=== PATIENT | male | born 1935 | race Caucasian/White ===

== ENCOUNTER 2021-09-08 09:55 | Inpatient (IN) | payer MEDICARE, SELFPAY ==
[2021-09-08] VITALS (8 sets, daily range): BP systolic 108–127; BP diastolic 68–77; PULSE 100–117; RESP 18–26; TEMP 36.6–37.6; O2SAT 90–95; BMI 33.0
--- NOTE | 2021-09-08 10:20 | XR_ITS ---
WS: [id number] XR chest 1V portable [id number] REASON FOR EXAM: SOB, hypoxia FINDINGS: Tortuous thoracic aorta. Heart size cannot be evaluated due to abnormality of the left chest. There is opacification of the lower left chest which most likely is a combination of lung consolidati on and pleural fluid. The left hemidiaphragm may also be elevated. There are no prior examinations fo r comparison. The right chest is clear. XR/XR chest 1V portable [id number] IMPRESSION: Opacification of the lower left hemithorax as above.
--- NOTE | 2021-09-08 10:21 | ECG_ITS ---
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 Measurements Intervals [place] Rate: 109 P: 63 NE: 128 QRS: 9 QRSD: 96 T: 57 QT: 325 QTc: 439 Interpretive Statements SINUS TACHYCARDIA POSSIBLE INFERIOR MYOCARDIAL INFARCTION , PROBABLY OLD [30 ms Q WAVE IN II/aVF] No previous ECG available for comparison Electronically Signed On 09-08-2021 18:28:15 SURVEILLANCE MANAGER by Ervin Coughlin M.D. [id number] f
--- NOTE | 2021-09-08 10:22 | W.ED.SOB ---
HPI - SOB/Dyspnea General: Chief Complaint: ER Hold Stated Complaint: GENERALIZED WEAKNESS Time Seen by Provider: 09/08/21 10:05 Source: patient and EMS Mode of arrival: EMS Limitations: no limitations History of Present Illness: HPI Narrative: Patient is an 85-year-old male who presents to ED today via EMS with a complaint of shortness of breath. Patient states he has had progressive dyspnea over the past 3 to 4 days. EMS states upon arrival patient was satting at 85% on room air. He normally does not wear oxygen but is currently on 6L O2. Patient states he has not been running fevers but did have some chills 2 days ago. He is immunized for COVID (not including his booster). No sick exposures. He has had a productive cough. He is not complaining of abdominal pain, vomiting, diarrhea. He has not noticed any swelling to his lower extremities. PMH includes hyperlipidemia and HTN. MD elicited complaint: shortness of breath and cough Onset (ago): day(s) Timing: constant Severity: severe Exacerbating factors: exertion Relieving factors: nothing Associated symptoms: Reports chest congestion and chest pain (he states with breathing); Deny abdominal pain, dizziness, extremity pain, fever(s), hemoptysis, lightheadedness, nausea, palpitations, syncope or vomiting Related Data: Home oxygen amount: none Review of Systems Const: Reports: chills, body aches and fatigue; Denies: fever(s) or malaise Eyes: Denies: change in vision, blurry vision, photophobia, floaters or seeing flashes ENMT: Denies: throat pain, odynophagia, nasal discharge, nasal congestion, post nasal drip or sinus pain Card: Reports: chest pain (he states with breathing) and dyspnea on exertion; Denies: palpitations, irregular heart rhythm, edema, swelling of feet/ankles, lightheadedness, syncope, pre-syncope, leg pain with exertion or acrocyanosis Resp: Reports: dyspnea, productive cough, pain on inspiration and chest congestion; Denies: wheezing, stridor or hemoptysis GI: Denies: abdominal pain, nausea, vomiting or diarrhea Musc: Denies: neck pain, back pain, extremity pain, extremity swelling or joint pain Skin/Breast: Denies: rash Neuro: Reports: other (generalized weakness); Denies: headache(s), numbness in extremities, weakness in extremities, sensory changes or dizziness [facility] ED PFSH: Medical History (Updated 09/08/21 @ 14:54 by Janak Quinonez MD) HTN (hypertension) Hyperlipidemia Surgical History (Updated 09/08/21 @ 14:53 by Janak Quinonez MD) No pertinent past surgical history Social History (Updated 09/08/21 @ 14:53 by Janak Quinonez MD) Smoking and tobacco status: never smoked Alcohol intake: never Substance/Drug Use: never Physical Exam Const: COMMON NORMALS: no limitations and alert GENERAL APPEARANCE: in distress (respiratory distress with hypoxia) NUTRITIONAL APPEARANCE: overweight ORIENTATION/CONSCIOUSNESS: Yes awake, Yes oriented to person, Yes oriented to place and Yes oriented to time HENMT: COMMON NORMALS: normocephalic and atraumatic HEAD & SCALP: normal to inspection, normocephalic and atraumatic Neck/C-Spine: COMMON NORMALS: full ROM, no lymphadenopathy and no meningeal signs GENERAL: No anterior neck swelling and No submandibular swelling Chest: COMMONS NORMALS: normal inspection of the chest and normal palpation of entire chest wall Resp: EFFORT & INSPECTION: Yes respiratory distress and Yes labored AUSCULTATION: diminished lung sounds on the left Cardio: COMMON NORMALS: regular rhythm RATE: tachycardic RHYTHM: regular rhythm GI: COMMON NORMALS: Soft to palpation, non-tender and no masses INSPECTION: Yes normal to inspection and Yes central obesity PALPATION: Yes Soft to palpation Extremity: COMMON NORMALS: normal to inspection, capillary refill normal, no clubbing, cyanosis or edema, no calf tenderness and no pedal edema Neuro: JALIL COMA SCALE: document GCS findings [place] coma scale eye opening: Spontaneous Jalil coma scale verbal response: Orientated [place] coma scale motor response: Obey commands Jalil coma scale total score: 15 SENSORIUM/ORIENTATION: Yes alert, Yes oriented to person, Yes oriented to place and Yes oriented to time MENINGEAL SIGNS: Yes no meningeal signs Skin: COMMON NORMALS: no rashes or lesions noted GENERAL SKIN EXAM: no rashes or lesions noted Course ED course: Dr. Greene has also evaluated patient and agrees with admission Consultations: Consultation #1: Dr. Quinonez-will await CTA findings for definite plans regarding L lung, recommends adding influenza; will come evaluate in ED Vital Signs: Vital signs: Vital Signs Temperature 99.6 F 09/08/21 10:13 Pulse Rate 107 H 09/08/21 13:33 Respiratory Rate 18 09/08/21 15:47 Blood Pressure 116/68 09/08/21 13:33 Pulse Oximetry 93 09/08/21 13:33 MDM - SOB/Dyspnea Medical Decision Making Patient is a nice 85-year-old male with a history of hyperlipidemia and hypertension here for progressive dyspnea over the past few days. He is COVID positive. CXR shows large opacification to the left lower lobe that could represent consolidation and/or effusion. CTA ordered for further clarification. Patient is currently mildly tachycardic. He is satting normally on 4L O2. Dr. Greene has also evaluated this patient and agrees with plan for admit. I have spoken to the hospitalist who will come evaluate patient in the ED and admit. Lab Data : 09/08/21 12:27 09/08/21 12:27 Labs/Radiology: Radiology Impressions Chest X-Ray 09/08/21 10:20 IMPRESSION: Opacification of the lower left hemithorax as above. Chest CTA 09/08/21 14:00 IMPRESSION: 1. No evidence of pulmonary embolus. 2. Large left pleural effusion with scattered areas of increased attenuation may represent blood products. Associated compression of the left lower lobe with obstruction of the left lower lobe bronchi. 3. 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 This can be followed up with conventional angiography if indicated. 4. Numerous lesions in the liver nonspecific on this study but most likely hepatic cysts. This can be followed up with ultrasound. 5. Distended gallbladder with dense increased attenuation material likely sludge. Notified MARTI Hill at 09/08/2021 3:34 PM. Laboratory Results WBC 5.7 10^3/uL (4.0-10.0) 09/08/21 12:27 RBC 4.20 10^6/uL (4.1-5.3) 09/08/21 12:27 Hgb 13.0 g/dL (11.7-16.6) 09/08/21 12:27 Hct 41.0 % (42.0-52.0) L 09/08/21 12:27 MCV 97.6 fl (80-94) H 09/08/21 12:27 MCH 31.0 pg (28.0-34.0) 09/08/21 12: MCHC 31.7 g/dL (30.0-36.0) 09/08/21 12:27 RDW 13.2 % (12.1-15.1) 09/08/21 12:27 Plt Count 178 10^3/cmm (130-400) 09/08/21 12: MPV 10.0 fL (7.4-10.4) 09/08/21 12:27 Neut % (Auto) 74.6 % 09/08/21 12:27 Lymph % (Auto) 11.3 % 09/08/21 12:27 [place] % (Auto) 13.3 % 09/08/21 12:27 Eos % (Auto) 0.2 % 09/08/21 12: Baso % (Auto) 0.2 % 09/08/21 12: Neut # (Auto) 4.22 10^3/uL (1.8-7.7) 09/08/21 12:27 Lymph # (Auto) 0.6 10^3/uL (0.8-4.8) L 09/08/21 12:27 [place] # (Auto) 0.8 10^3/uL (0.2-0.9) 09/08/21 12:27 Eos # (Auto) 0.0 10^3/uL (0.0-0.8) 09/08/21 12:27 Baso # (Auto) 0.0 10^3/uL (0.0-0.1) 09/08/21 12: Nucleated RBC % (auto) 0 % 09/08/21 12: Nucleated RBCs # 0.0 /100WBC 09/08/21 12: D-Dimer 1.62 ug/mIFEU (0-0.59) H 09/08/21 13:01 Specimen Type Arterial 09/08/21 10:46 Sample Site Brachial, left 09/08/21 10:46 ABG pH 7.39 (7.35-7.45) 09/08/21 10:46 ABG pCO2 40.9 mmHg (35-45) 09/08/21 10:46 ABG pO2 73.7 mmHg (80.0-100.0) L 09/08/21 10:46 ABG HCO3 24.5 mmol/L (22-26) 09/08/21 10:46 ABG O2 Saturation 95.3 09/08/21 10:46 ABG Base Excess -0.5 mmol/L (-2.0-2.0) 09/08/21 10:46 Yaya Test N/a 09/08/21 10:46 A-a O2 Gradient 24.6 mmHg (5-10) H 09/08/21 10:46 Hematocrit 40.7 % (42-52) L 09/08/21 10:46 Hgb O2 Saturation 93.3 % (95-100) L 09/08/21 10:46 Carboxyhemoglobin 1.2 %THgb (0.4-20.1) 09/08/21 10:46 Methemoglobin 0.9 % (0.4-1.5) 09/08/21 10:46 Total Hemoglobin 13.3 g/dL (14-18) L 09/08/21 10:46 Sodium 138.0 mmol/L (131-143) 09/08/21 10:46 Potassium 4.0 mmol/L (3.5-5.0) 09/08/21 10:46 Glucose 164.0 mg/dL (70-115) H 09/08/21 10:46 Ionized Calcium 1.2 mmol/L (1.1-1.4) 09/08/21 10:46 O2 Delivery Device Nc 09/08/21 10:46 O2 Liters/Min 6.0 % 09/08/21 10:46 FiO2 44.0 % 09/08/21 10:46 Chute Tender ID Amh 09/08/21 10:46 Sodium 136 mmol/L (136-145) 09/08/21 12:27 Potassium 4.0 mmol/L (3.5-5.1) 09/08/21 12:27 Chloride 98 mmol/L (98-107) 09/08/21 12:27 Carbon Dioxide 26 mmol/L (22-29) 09/08/21 12:27 Anion Gap 16.0 (5-19) 09/08/21 12:27 BUN 26 mg/dL (8-23) H 09/08/21 12:27 Creatinine 1.2 mg/dL (0.7-1.2) 09/08/21 12:27 GFR Calculation Not Reportable 09/08/21 12:27 Glucose 146 mg/dL (65-115) H 09/08/21 12:27 Calculated Osmolality 289 mOsm/kg (285-295) 09/08/21 12:27 Lactic Acid 1.7 mmol/L (0.5-2.2) 09/08/21 12:27 Calcium 8.3 mg/dL (8.5-10.5) L 09/08/21 12:27 Total Bilirubin 0.7 mg/dL (0.15-1.2) 09/08/21 12:27 AST 19 U/L (0-40) 09/08/21 12:27 ALT 13 U/L (0-41) 09/08/21 12:27 Alkaline Phosphatase 68 IU/L (40-130) 09/08/21 12:27 Troponin T Baseline 19 ng/L (0-15) H 09/08/21 12:27 Troponin T 120 Minute 18.20 ng/L (0-15) H 09/08/21 14:40 Delta Troponin T -0.80 ABS# (0-10) L 09/08/21 14:40 C-Reactive Protein 24.4 mg/L (0.0-4.9) H 09/08/21 12:27 NT-Pro-B Natriuret Pep 105 pg/mL (0-450) 09/08/21 12:27 Total Protein 5.7 g/dL (6.6-8.7) L 09/08/21 12:27 Albumin 3.3 g/dL (3.5-5.2) L 09/08/21 12:27 Globulin 2.4 g/dL (1.3-4.6) 09/08/21 12:27 Procalcitonin 0.12 ng/mL (0-0.5) 09/08/21 12:27 SARS-CoV-2 Ag (Rapid) Positive (Negative) H 09/08/21 10:55 Discharge Plan Discharge Patient Disposition: Admitted As Inpatient Clinical Impression: COVID-19 Condition: Stable Coding Level of Care Code ED Tomato Grader for Elsa Fwd Exam Comprehensive
[2021-09-08 10:57] LABS: ABG PCO2 40.9 mmHg (35-45); ABG PH Result 7.39 (7.35-7.45); Alveolar-Arterial Oxygen Gradi 24.6 mmHg (5-10); Arterial Blood Gas Hematocrit 40.7 % (42-52); Base Excess ABG -0.5 mmol/L (-2.0-2.0); Blood Gas Operator Identificat AMH; Blood Gas Sample Site Brachial, left; Blood Gas Sample Type Arterial; Carboxyhemoglobin 1.2 %THgb (0.4-20.1); HCO3 ABG 24.5 mmol/L (22-26); HGB O2 Sat 93.3 % (95-100); Ionized Calcium Level - ABG 1.2 mmol/L (1.1-1.4); Methemoglobin 0.9 % (0.4-1.5); Oxygen Device NC; Oxygen Saturation ABG 95.3; PO2 ABG 73.7 mmHg (80.0-100.0); Total Hemoglobin 13.3 g/dL (14-18)
--- NOTE | 2021-09-08 11:18 | PC.NURSE ---
This RN gave report to MYNOR Mann at this time who will assume care at this time.
[2021-09-08 11:23] LABS: SARS Covid-2 Antigen Positive (Negative)
--- NOTE | 2021-09-08 12:21 | ECG_ITS ---
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 Measurements Intervals [place] Rate: 107 P: 66 MS: 147 QRS: 18 QRSD: 91 T: 64 QT: 328 QTc: 439 Interpretive Statements SINUS TACHYCARDIA ABNORMAL RHYTHM ECG Compared to ECG 09/08/2021 12:02:13 Myocardial infarct finding no longer present Electronically Signed On 09-08-2021 18:33:25 TEAM OTR TRUCK DRIVER by Ervin Coughlin M.D. [email or web address] Techmerit health biloxiLeaftrinity health system west campusZinkia/store/OM/[id number]
[2021-09-08 12:33] LABS: Basophils % 0.2 %; Eosinophils % 0.2 %; Lymphocytes # 0.6 10^3/uL (0.8-4.8); Lymphocytes % 11.3 %; Mean Corpuscular HGB Conc 31.7 g/dL (30.0-36.0); Mean Corpuscular Volume 97.6 fl (80-94); Monocytes # 0.8 10^3/uL (0.2-0.9); Monocytes % 13.3 %; Neutrophils # 4.22 10^3/uL (1.8-7.7); Neutrophils % 74.6 %; Nucleated Red Blood Cells % 0 %; Platelet Count 178 10^3/cmm (130-400); Red Cell Distribution Width 13.2 % (12.1-15.1); White Blood Count 5.7 10^3/uL (4.0-10.0)
[2021-09-08 12:59] LABS: Lactic Sepsis W/Reflex 1.7 mmol/L (0.5-2.2)
[2021-09-08 13:03] LABS: Troponin(5th) Baseline 19 ng/L (0-15)
[2021-09-08 13:19] LABS: Alanine Aminotransferase 13 U/L (0-41); Albumin Level 3.3 g/dL (3.5-5.2); Alkaline Phosphatase 68 IU/L (40-130); Aspartate Amino Transferase 19 U/L (0-40); Blood Urea Nitrogen 26 mg/dL (8-23); C Reactive Protein 24.4 mg/L (0.0-4.9); Calcium 8.3 mg/dL (8.5-10.5); Carbon Dioxide 26 mmol/L (22-29); Chloride 98 mmol/L (98-107); Globulin 2.4 g/dL (1.3-4.6); Glucose 146 mg/dL (65-115); Osmolality Calculated 289 mOsm/kg (285-295); Sodium 136 mmol/L (136-145); Total Bilirubin 0.7 mg/dL (0.15-1.2); Total Protein 5.7 g/dL (6.6-8.7)
[2021-09-08 13:52] LABS: D Dimer 1.62 ug/mIFEU (0-0.59)
--- NOTE | 2021-09-08 14:00 | CT_ITS ---
WS: [id number] CTA OF THE CHEST WITH PULMONARY EMBOLISM PROTOCOL TECHNIQUE: High-resolution contrast enhanced CTA of the chest with coronal and sagittal reformatted i mages with pulmonary embolism protocol. MIP images are also reviewed. CLINICAL INFORMATION: COVID, hypoxia; elevated d-dimer; L consolidation/effusion COMPARISON: None. DLP: 620.[address] scans at [facility] use at least one of these dose optimization techniques: automated e xposure control; mA and/or kV adjustment per patient size (includes targeted exams where dose is matc hed to clinical indication); or iterative reconstruction. FINDINGS: Proximal main pulmonary arteries are normal. No filling defects to indicate pulmonary embolus. Some i mages degraded by breathing artifact.Large left pleural effusion. Some increased attenuation material in the pleural effusion likely due to blood products or proteinaceous debris. Obstruction left lower lobe bronchi with compression/collapse of the left lower lobe. Dilated tortuous veins in the left lower lobe with anomalous origin of the left pulmonary vein. Findi ngs most likely due to arteriovenous malformation. This can be followed up with conventional angiogra phy for better anatomic detail. Normal caliber thoracic aorta. Numerous low-attenuation lesions in the liver nonspecific but likely h epatic cysts. This can be followed up with ultrasound. Distended gallbladder with increased attenuati on material likely dense sludge. Adrenal glands are normal. Partially visualized renal cortical atrop hy. A few calcified thyroid nodules. No axillary lymphadenopathy. No mediastinal or hilar lymphadenopathy . CT/CT angio chest PE protcl [id number] IMPRESSION: 1. No evidence of pulmonary embolus. 2. Large left pleural effusion with scattered areas of increased attenuation m ay represent blood products. Associated compression of the left lower lobe with obstruction of the left lower lobe bronchi. 3. 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 Findings suspic ious for arteriovenous malformation. This can be followed up with conventional angiography if indicated. 4. Numerous lesions in the liver nonspecific on this study but most likely hep atic cysts. This can be followed up with ultrasound. 5. Distended gallbladder with dense increased attenuation material likely slud ge. Notified MARTI Hill at 09/08/2021 3:34 PM.
[2021-09-08 14:08] LABS: NT Pro B Type Natriuretic Pept 105 pg/mL (0-450); Procalcitonin 0.12 ng/mL (0-0.5)
--- NOTE | 2021-09-08 14:50 | P.HP_ITS ---
Providers/Chief Complaint Chief Complaint: GENERALIZED WEAKNESS History of Present Illness Harrison Garcia Case is a 85 year old male with a past medical history of hypertension, hyperlipidemia, who presents [facility] due to fevers, fatigue, malaise, shortness of breath. He also reports pleurisy, shortness of breath and chest pain with deep breaths. He tells me that he has been v accinated for Covid has received both vaccinations, he was supposed to get the third vaccine but they were out of stock. Has not received flu vaccine. No history of lung disease. No history of COPD, no history of smoking, no history of CAD. No history of CVA. No history of diabetes. He tells me that progressively become more short of breath, fatigue, malaise, no diarrhea, no abdominal pain, no loss of taste, loss of smell Review of Systems Const: Reports: fever(s), chills, body aches, fatigue and malaise Eyes: Denies: change in vision or blurry vision ENMT: Denies: nasal congestion Resp: Reports: dyspnea and productive cough; Denies: non-productive cough or wheezing GI: Denies: abdominal pain, nausea, vomiting, hematemesis, diarrhea, constipation, hematochezia or melena : Denies: flank pain, difficulty urinating, dysuria or urinary frequency Musc: Denies: neck pain or back pain Skin/Breast: Denies: rash Neuro: Denies: headache(s), dizziness or vertigo Psych: Denies: anxiety or depression Medications/Allergies Home Medications Medication Instructions Recorded Confirmed Last Taken Type cholecalciferol (vitamin D3) 50 50 mcg PO DAILY 09/08/21 09/08/21 Unknown History mcg (2,000 unit) capsule (Vitamin D3) lisinopril 20 mg tablet 10 mg PO DAILY 09/08/21 09/08/21 Unknown History nifedipine 60 mg tablet,extended 60 mg PO DAILY 09/08/21 09/08/21 Unknown History release 24 hr pravastatin 40 mg tablet 40 mg PO DAILY 09/08/21 09/08/21 Unknown History Allergies Allergy/AdvReac Type Severity Reaction Status Date / Time No Known Allergies Allergy Unverified 09/08/21 14:32 PFSH Acute PFSH: Medical History (Updated 09/08/21 @ 14:54 by Janak Quinonez MD) HTN (hypertension) Hyperlipidemia Surgical History (Updated 09/08/21 @ 14:53 by Janak Quinonez MD) No pertinent past surgical history Social History (Updated 09/08/21 @ 14:53 by Janak Quinonez MD) Smoking and tobacco status: never smoked Alcohol intake: never Substance/Drug Use: never Vitals/I&O/Wt Last Vital Signs Temp 99.6 F 09/08/21 10:13 Pulse 107 H 09/08/21 13:33 Resp 18 09/08/21 13:33 BP 116/68 09/08/21 13:33 Pulse Ox 93 09/08/21 13:33 Weight last 48 hrs Weight 110.677 kg Physical Exam Const: COMMON NORMALS: no acute distress and patient oriented x3 HENMT: COMMON NORMALS: normocephalic HEAD & SCALP: normocephalic Neck/C-Spine: COMMON NORMALS: no JVD Lymph: LYMPHATIC: no lymphadenopathy noted Chest: COMMONS NORMALS: normal inspection of the chest Resp: COMMON NORMALS: normal respiratory effort, No retractions, No use of accessory muscles and clear to auscultation bilaterally AUSCULTATION: clear to auscultation bilaterally Cardio: COMMON NORMALS: no JVD, regular rate, regular rhythm, S1 normal heart sound present and S2 normal heart sound present RATE: regular rate RHYTHM: regular rhythm HEART SOUNDS: S1 normal heart sound present and S2 normal heart sound present GI: COMMON NORMALS: Normal to inspection, nondistended, normoactive bowel sounds present, Soft to palpation, non-tender, No hepatosplenomegaly present, no masses and no bruits PALPATION: Yes Soft to palpation and Yes No hepatosplenomegaly present Extremity: COMMON NORMALS: capillary refill normal, no clubbing, cyanosis or edema, no calf tenderness and no pedal edema Neuro: COMMON NORMALS: patient oriented x3 Psych: COMMON NORMALS: mental status grossly normal Data : 09/08/21 12:27 09/08/21 12:27 Micro: Microbiology 09/08/21 13:30 Blood Culture - Preliminary Blood SPECIMEN COLLECTED 09/08/21 13:01 Blood Culture - Preliminary Blood SPECIMEN COLLECTED A&P Assessment and plan (1) Collapse of left lung: Status: Acute (2) COVID-19: Status: Acute (3) Pneumonia due to COVID-19 virus: Status: Acute Plan COVID-19 pneumonia -Requiring 4 L Plan: -Currently ER hold, admit to general medical floors -D-dimer 1.62, CT angiogram -Remdesivir day 1 of 5 -Decadron day 1 of 10 -Has left lung consolidation and/or collapse, Rocephin and azithromycin for second bacterial pneumonia prophylaxis -Vitamin C, zinc, vitamin D - incentive spirometer, flutter valve -Budesonide, ipratropium -For left lung collapse and/or consolidation will await CT angiogram, if negative for pulmonary emboli, will start chest vest therapy, Mucomyst, hypertonic saline, monitor respiratory status, repeat chest x-ray tomorrow morning, if persists will consider bronchoscopy -Lovenox for DVT prophylaxis -Patient is DNR/DNI, confirmed with this patient multiple times, does not want to have aggressive interventions Attestations Medical Necessity Statement*: Patient requires hospitalization for COVID-19 pneumonia, left lung collapse Coding Level of Care Code Acute Rail Bonder for [facility] Fwd History Comprehensive Exam Comprehensive Medical Decision Making High Complexity Diagnoses Collapse of left lung J98.11 COVID-19 U07.1 Pneumonia due to COVID-19 virus U07.1; J12.82 Time Spent (min) 55
[2021-09-08] MEDS: iodixanol 320 mg/mL 100mL Btl IV (15:06)
[2021-09-08] MEDS: ondansetron 2 mg/ML SDV 2 mL IVP (15:47)
[2021-09-08] MEDS: morphine 4 mg/mL SDV 1 mL 2 MG IVP (15:47)
--- NOTE | 2021-09-08 16:21 | ECG_ITS ---
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 Measurements Intervals [place] Rate: 104 P: 66 WI: 153 QRS: 18 QRSD: 94 T: 76 QT: 321 QTc: 424 Interpretive Statements SINUS TACHYCARDIA NONSPECIFIC T-WAVE ABNORMALITy Compared to ECG 09/08/2021 13:45:36 T-wave abnormality now present Electronically Signed On 09-08-2021 18:32:07 HEMODIALYSIS RN by Ervin Coughlin M.D. [email or web address]/[id number] f
[2021-09-08] MEDS: ipratropium-albuterol 3 mL Neb INHALATION (17:04)
[2021-09-08] MEDS: dexamethasone 10 mg/mL INJ 6 MG IVP (18:09)
[2021-09-08] MEDS: azithromycin 500 MG in sodium chloride 0.9% 250 ML 250 MG IV (18:10)
[2021-09-08] MEDS: cefTRIAXone 1,000 MG in sodium chloride 0.9% (plus) 50 ML 100 MG IV (18:11)
[2021-09-08 18:39] LABS: Troponin 5 6HR 18.74 ng/L (0-15)
[2021-09-08 18:53] LABS: Troponin 5 6HR Delta -0.26 ng/L (0-12)
[2021-09-08] MEDS: remdesivir 200 MG in sodium chloride 0.9% (100 ml) 60 ML 100 MG IV (22:16)
[2021-09-08] MEDS: ascorbic acid 500 mg Tablet PO (22:17)
[2021-09-08] MEDS: famotidine 20 mg/2 mL INJ IVP (22:18)
[2021-09-08] MEDS: sodium chloride 0.9% 1,000 ML 75 ML IV (22:22)
[2021-09-09] VITALS (15 sets, daily range): BP systolic 108–148; BP diastolic 70–86; PULSE 92–108; RESP 16–29; TEMP 36.6–37.7; O2SAT 90–95
[2021-09-09 03:43] LABS: ABG PCO2 53.8 mmHg (35-45); ABG PH Result 7.32 (7.35-7.45); Arterial Blood Gas Hematocrit 37.9 % (42-52); Base Excess ABG 0.8 mmol/L (-2.0-2.0); Blood Gas Allen Test Pos; Blood Gas Sample Site Radial, left; Blood Gas Sample Type Arterial; HCO3 ABG 27.7 mmol/L (22-26); Oxygen Device NC; PO2 ABG 70.8 mmHg (80.0-100.0)
--- NOTE | 2021-09-09 03:57 | PC.NURSE ---
Adjusted NS as the first dose not started until he arrived to floor.
--- NOTE | 2021-09-09 06:00 | ECG_ITS ---
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 Measurements Intervals [place] Rate: 92 P: 66 MT: 166 QRS: 23 QRSD: 96 T: 60 QT: 343 QTc: 425 Interpretive Statements SINUS RHYTHM NONSPECIFIC T-WAVE ABNORMALITY Compared to ECG 09/08/2021 16:57:31 Sinus tachycardia no longer present T-wave abnormality still present Electronically Signed On 09-09-2021 9:20:26 CCO by Elba Nicolas M.D. [email or web address] Globalpromise hospital of east los angelesDeskidea/store/[id number]
--- NOTE | 2021-09-09 07:00 | XR_ITS ---
WS: [id number] PORTABLE CHEST HISTORY: sob COMPARISON: 09/08/2021 Increasing consolidation and opacification throughout the LEFT thorax. There is a small amount of res idual aerated lung centrally. No significant shift of the mediastinal structures to the LEFT. Small amount of interstitial thickening centrally in the lower RIGHT lung. No pneumothorax. Cardiac size: Heart is obscured by the large effusion LEFT thorax. Mediastinum/Aorta: Obscured by the effusion in the LEFT thorax. No osseous abnormality seen. XR/XR chest 1V portable [id number] IMPRESSION: 1. Large LEFT pleural effusion, slightly increased in size since 09/08/2021. 2. Very small amount of edema or pneumonitis developing in the central RIGHT l brenda.
[2021-09-09] MEDS: ipratropium-albuterol 3 mL Neb INHALATION ×4 (08:24→20:27)
[2021-09-09] MEDS: budesonide 0.5 mg/2 mL Neb INHALATION ×2 (08:24→20:27)
[2021-09-09] MEDS: acetylcysteine 200 mg/mL SDV 4 mL 100 MG INHALATION ×4 (08:24→20:27)
[2021-09-09 08:43] LABS: Basophils % 0.2 %; Eosinophils # 0.1 10^3/uL (0.0-0.8); Eosinophils % 0.9 %; Hematocrit 37.3 % (42.0-52.0); Hemoglobin 11.9 g/dL (11.7-16.6); Lymphocytes # 1.1 10^3/uL (0.8-4.8); Lymphocytes % 19.5 %; Mean Corpuscular HGB Conc 31.9 g/dL (30.0-36.0); Mean Corpuscular Hemoglobin 31.2 pg (28.0-34.0); Mean Corpuscular Volume 97.6 fl (80-94); Mean Platelet Volume 9.9 fL (7.4-10.4); Monocytes # 0.8 10^3/uL (0.2-0.9); Monocytes % 14.3 %; Neutrophils # 3.49 10^3/uL (1.8-7.7); Neutrophils % 64.9 %; Nucleated Red Blood Cells % 0 %; Platelet Count 187 10^3/cmm (130-400); Red Blood Count 3.82 10^6/uL (4.1-5.3); Red Cell Distribution Width 13.4 % (12.1-15.1); White Blood Count 5.4 10^3/uL (4.0-10.0)
[2021-09-09 08:57] LABS: INR 1.06 (0.8-1.2)
[2021-09-09 09:04] LABS: Estmated Average Glucose 128; Hemoglobin A1C 6.1 % (4.0-6.0)
[2021-09-09 09:09] LABS: Lactate (Lactic Acid level) 1.2 mmol/L (0.5-2.2)
[2021-09-09 09:20] LABS: NT Pro B Type Natriuretic Pept 59 pg/mL (0-450); Procalcitonin 0.14 ng/mL (0-0.5); Thyroid Stimulating Hormone 1.49 uIU/mL (0.27-4.20)
[2021-09-09 09:31] LABS: Alanine Aminotransferase 11 U/L (0-41); Alkaline Phosphatase 63 IU/L (40-130); Aspartate Amino Transferase 18 U/L (0-40); Blood Urea Nitrogen 33 mg/dL (8-23); C Reactive Protein 55.9 mg/L (0.0-4.9); Calcium 7.9 mg/dL (8.5-10.5); Carbon Dioxide 25 mmol/L (22-29); Chloride 103 mmol/L (98-107); Creatine Phosphokinase 98 U/L (39-308); Globulin 2.4 g/dL (1.3-4.6); Glucose 127 mg/dL (65-115); Magnesium 2.3 mg/dL (1.7-2.3); Osmolality Calculated 297 mOsm/kg (285-295); Phosphorus 3.1 mg/dL (2.5-4.5); Sodium 139 mmol/L (136-145); Total Bilirubin 0.5 mg/dL (0.15-1.2); Total Protein 5.4 g/dL (6.6-8.7)
[2021-09-09] MEDS: cholecalciferol (vitamin D3) 1,000 unit Tablet 2000 UNIT PO (09:32)
[2021-09-09] MEDS: zinc gluconate 50 mg Tablet PO (09:32)
[2021-09-09] MEDS: NIFEdipine ER (24 hr) 30 mg Tablet 60 MG PO (09:32)
[2021-09-09] MEDS: ascorbic acid 500 mg Tablet PO ×2 (09:32→18:02)
[2021-09-09] MEDS: atorvastatin 40 mg Tablet 20 MG PO (09:33)
[2021-09-09] MEDS: famotidine 20 mg/2 mL INJ IVP ×2 (09:33→19:56)
--- NOTE | 2021-09-09 10:00 | US_ITS ---
WS: [id number] ULTRASOUND-GUIDED THORACENTESIS, LEFT HISTORY: left pleural effusion Procedure, risks, and complications were explained to the patient. With the patient in an upright pos ition, the skin over the LEFT posterior thorax was cleansed with ChloraPrep and anesthetized with 1% buffered lidocaine. A 5 Albanian Yueh needle is inserted into the pleural fluid. The pleural effusion i s very echogenic and appears to be clotted blood or infection. Attempted aspiration twice. No aspirat e was removed. There is a very small amount of dark clotted blood aspirated into the syringe. The inn er stylet became clogged with clot. / thoracentesis [id number] IMPRESSION: 1. Unsuccessful LEFT thoracentesis. Very echogenic clotted material consistent with a hemothorax. Unsuccessful aspiration. Diffuse drops of very dark red jackson tted blood aspirated initially. 2. Chest radiograph to follow to evaluate for pneumothorax. 3. A rapid response was necessary after the examination was completed patient briefly became unresponsive.
--- NOTE | 2021-09-09 10:07 | XR_ITS ---
WS: [id number] PORTABLE CHEST HISTORY: chest pain COMPARISON: 09/09/2021 Near complete obscuration of the LEFT hemithorax. Very tiny amount of aerated lung centrally has decr eased since earlier the same day. No pneumothorax is identified. No midline shift. RIGHT lung is clear. No pleural effusion or pneumothorax. Cardiac size: Obscured by the dense consolidation in the RIGHT thorax. Mediastinum/Aorta: No mediastinal widening. No osseous abnormality seen. XR/XR chest 1V portable [id number] IMPRESSION: Essentially complete opacification of the LEFT thorax. Patient has a known larg e pleural effusion/hemothorax. No significant complications status post the rec ent attempted thoracentesis. No pneumothorax evident.
[2021-09-09 10:21] LABS: ABG PCO2 47.1 mmHg (35-45); ABG PH Result 7.34 (7.35-7.45); Alveolar-Arterial Oxygen Gradi 4.4 mmHg (5-10); Arterial Blood Gas Hematocrit 36.7 % (42-52); Blood Gas Allen Test Pos; Blood Gas Operator Identificat CAK; Blood Gas Sample Site Radial, left; Blood Gas Sample Type Arterial; Carboxyhemoglobin 0.8 %THgb (0.4-20.1); HCO3 ABG 25.2 mmol/L (22-26); HGB O2 Sat 88.3 % (95-100); Ionized Calcium Level - ABG 1.2 mmol/L (1.1-1.4); Oxygen Device NC; PO2 ABG 58.7 mmHg (80.0-100.0)
[2021-09-09] MEDS: FUROsemide 10 mg/mL SDV 4mL 40 MG IVP (11:19)
--- NOTE | 2021-09-09 14:15 | P.PN_ITS ---
Subjective Subjective: Interval history: Patient was seen multiple times this morning Rapid response was called early this morning, patient was having a bedside thoracocentesis, he became lethargic, less responsive, saturating in the high 90s on 6 L, when I examined patient, he was alert oriented x3, following all commands, complaining of shortness of breath, he has complete opacification of the left lung, he has decreased aeration of the left lung, denies any coughing or gagging episodes, does report falling the day he came to the hospital, bone no significant trauma, I was told by Dr. Biggs that during his thoracocentesis she phan blood, but it clotted off, chest x-ray does not show any evidence of pneumothorax He was reexamined later in the morning, currently on 6 L, complaining of some intermittent shortness of breath, but overall feeling better, no lightheadedness, has a weak cough, no chest pain Vitals/I&O/Wt Last Vital Signs Temp 97.8 F 09/09/21 11:50 Pulse 104 H 09/09/21 12:10 Resp 20 H 09/09/21 12:05 BP 138/85 09/09/21 11:50 Pulse Ox 94 09/09/21 12:05 09/08/21 09/09/21 09/09/21 22:59 06:59 14:59 Intake Total 300 / 300 60 / 360 360 / 360 Balance 300 / 300 60 / 360 360 / 360 Weight last 48 hrs Weight 110.677 kg Physical Exam Const: COMMON NORMALS: no acute distress and patient oriented x3 Resp: COMMON NORMALS: normal respiratory effort, No retractions and No use of accessory muscles AUSCULTATION: diminished lung sounds on the left throughout Cardio: COMMON NORMALS: regular rate, regular rhythm, S1 normal heart sound present and S2 normal heart sound present RATE: regular rate RHYTHM: regular rhythm HEART SOUNDS: S1 normal heart sound present and S2 normal heart sound present GI: COMMON NORMALS: Normal to inspection, nondistended, normoactive bowel sounds present, Soft to palpation, non-tender and No hepatosplenomegaly present PALPATION: Yes Soft to palpation and Yes No hepatosplenomegaly present Extremity: NARRATIVE EXTREMITY EXAM: 1+ pitting edema Neuro: COMMON NORMALS: patient oriented x3 Psych: COMMON NORMALS: mental status grossly normal Data : 02/03/22 08:35 09/09/21 08:35 Micro: Microbiology 09/08/21 13:30 Blood Culture - Preliminary Blood NEGATIVE TO DATE 09/08/21 13:01 Blood Culture - Preliminary Blood NEGATIVE TO DATE A&P Assessment and plan (1) Collapse of left lung: Status: Acute (2) COVID-19: Status: Acute (3) Pneumonia due to COVID-19 virus: Status: Acute (4) Hemothorax on left: Status: Acute (5) Pleural effusion: Status: Acute Plan COVID-19 pneumonia -Requiring 6 L -pH 7.34, PCO2 50.7, PCO2 47.1, on 6 L -1.? No evidence of pulmonary embolus. 2.? Large left pleural effusion with scattered areas of increased attenuation may represent blood products. Associated compression of the left lower lobe with obstruction of the left lower lobe bronchi. 3.? 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 This can be followed up with conventional angiography if indicated. 4.? Numerous lesions in the liver nonspecific on this study but most likely hepatic cysts. This can be followed up with ultrasound. 5.? Distended gallbladder with dense increased attenuation material likely sludge. Ultrasound thoracocentesis 1.? Unsuccessful LEFT thoracentesis. Very echogenic clotted material consistent with a hemothorax. Unsuccessful aspiration. Diffuse drops of very dark red clotted blood aspirated initially. 2.? Chest radiograph to follow to evaluate for pneumothorax. 3.? A rapid response was necessary after the examination was completed patient briefly became unresponsive. Chest x-ray Essentially complete opacification of the LEFT thorax. Patient has a known large pleural effusion/hemothorax. No significant complications status post the recent attempted thoracentesis. No pneumothorax evident. Plan: -Currently under medical floors -D-dimer 1.62, -Remdesivir day 2 of 5 -Decadron day 2 of 10 -Has left lung consolidation and/or collapse, Rocephin and azithromycin for second bacterial pneumonia prophylaxis -Vitamin C, zinc, vitamin D - incentive spirometer, flutter valve -Budesonide, ipratropium -For left lung collapse chest vest therapy, hypertonic saline, Mucomyst, monitor respiratory status, repeat chest x-ray, if persists will consider bronchoscopy -Left pleural effusion, no significant trauma reported, blood contents reported, will do a trial of Lasix, consider discussing with cardiothoracic surgery -I try to reach out to family members, however currently no answer -Lovenox for DVT prophylaxis -Patient is DNR/DNI, confirmed with this patient multiple times, does not want to have aggressive interventions Attestations Medical Necessity Statement*: Patient requires hospitalization for COVID-19 pneumonia, left lung collapse, left hemothorax Critical Care Time: 25 Coding Level of Care Code Acute Emg Technician for [facility] Fwd Diagnoses Collapse of left lung J98.11 COVID-19 U07.1 Pneumonia due to COVID-19 virus U07.1; J12.82 Hemothorax on left J94.2 Pleural effusion J90
[2021-09-09] MEDS: azithromycin 500 MG in sodium chloride 0.9% 250 ML 250 MG IV (16:06)
[2021-09-09] MEDS: dexamethasone 10 mg/mL INJ 6 MG IVP (16:07)
[2021-09-09] MEDS: cefTRIAXone 1,000 MG in sodium chloride 0.9% (plus) 50 ML 100 MG IV (18:02)
[2021-09-09] MEDS: remdesivir 100 MG in sodium chloride 0.9% (100 ml) 80 ML IV (18:57)
[2021-09-09 21:39] LABS: Glucose Point of Care 231 mg/dL (70-110)
[2021-09-10] VITALS (13 sets, daily range): BP systolic 120–143; BP diastolic 71–85; PULSE 85–95; RESP 16–22; TEMP 36.6–37.7; O2SAT 89–93
--- NOTE | 2021-09-10 04:00 | XR_ITS ---
WS: [id number] PORTABLE CHEST HISTORY: sob COMPARISON: 09/09/2021 Complete opacification throughout the LEFT thorax. There is slight shift of the mediastinal structure s to the RIGHT of midline. Cardiac size: Obscured by the increased opacification throughout the LEFT thorax. Mediastinum/Aorta: Shift of the mediastinal structures to the RIGHT. No osseous abnormality seen. XR/XR chest 1V portable [id number] IMPRESSION: 1. Complete progressive opacification throughout the LEFT thorax. Opacificatio n is increased since 2021. No aerated lung. Attempted recent thoracentesis re vealed very heterogeneous pleural fluid consistent with blood and clot. Unable to aspirate due to clot and pleural thickening. 2. Slight midline shift to the RIGHT. This could be due to position and rotati on of the patient but increasing mass effect is a possibility. Possible increas ing LEFT hemothorax should be considered.
[2021-09-10 04:29] LABS: ABG PCO2 49.1 mmHg (35-45); ABG PH Result 7.33 (7.35-7.45); Arterial Blood Gas Hematocrit 37.8 % (42-52); Base Excess ABG -0.7 mmol/L (-2.0-2.0); Blood Gas Allen Test Pos; Blood Gas Sample Site Radial, left; Blood Gas Sample Type Arterial; HCO3 ABG 25.8 mmol/L (22-26); Oxygen Device NC; PO2 ABG 65.5 mmHg (80.0-100.0)
--- NOTE | 2021-09-10 06:00 | ECG_ITS ---
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 Measurements Intervals [place] Rate: 89 P: 52 [place]: 137 QRS: 22 QRSD: 88 T: 37 QT: 341 QTc: 416 Interpretive Statements SINUS RHYTHM NONSPECIFIC T-WAVE ABNORMALITY Compared to ECG 09/09/2021 06:22:04 No significant changes Electronically Signed On 09-10-2021 17:42:11 MANNEQUIN MOLDER by Ervin Coughlin M.D. [email or web address]
[2021-09-10 08:02] LABS: Hematocrit 35.4 % (42.0-52.0); Hemoglobin 11.2 g/dL (11.7-16.6); Lymphocytes # 0.5 10^3/uL (0.8-4.8); Lymphocytes % 9.9 %; Mean Corpuscular HGB Conc 31.6 g/dL (30.0-36.0); Mean Corpuscular Volume 98.1 fl (80-94); Monocytes # 0.7 10^3/uL (0.2-0.9); Neutrophils # 4.01 10^3/uL (1.8-7.7); Neutrophils % 76.7 %; Nucleated Red Blood Cells % 0 %; Platelet Count 194 10^3/cmm (130-400); Red Blood Count 3.61 10^6/uL (4.1-5.3); Red Cell Distribution Width 13.2 % (12.1-15.1); White Blood Count 5.2 10^3/uL (4.0-10.0)
[2021-09-10 08:15] LABS: INR 1.06 (0.8-1.2)
[2021-09-10 08:22] LABS: C Reactive Protein 79.6 mg/L (0.0-4.9); Magnesium 2.4 mg/dL (1.7-2.3); Phosphorus 3.3 mg/dL (2.5-4.5)
[2021-09-10 08:23] LABS: Lactate (Lactic Acid level) 0.9 mmol/L (0.5-2.2)
[2021-09-10] MEDS: acetylcysteine 200 mg/mL SDV 4 mL 100 MG INHALATION ×4 (08:30→21:18)
[2021-09-10] MEDS: ipratropium-albuterol 3 mL Neb INHALATION ×4 (08:30→21:14)
[2021-09-10] MEDS: budesonide 0.5 mg/2 mL Neb INHALATION ×2 (08:30→21:14)
[2021-09-10 08:32] LABS: Alanine Aminotransferase 33 U/L (0-41); Alkaline Phosphatase 101 IU/L (40-130); Anion Gap 13.7 (5-19); Aspartate Amino Transferase 49 U/L (0-40); Blood Urea Nitrogen 37 mg/dL (8-23); Carbon Dioxide 25 mmol/L (22-29); Chloride 104 mmol/L (98-107); Globulin 2.4 g/dL (1.3-4.6); Glucose 144 mg/dL (65-115); Osmolality Calculated 297 mOsm/kg (285-295); Potassium 4.7 mmol/L (3.5-5.1); Sodium 138 mmol/L (136-145); Total Bilirubin 0.4 mg/dL (0.15-1.2); Total Protein 5.4 g/dL (6.6-8.7)
[2021-09-10 08:33] LABS: NT Pro B Type Natriuretic Pept 54 pg/mL (0-450); Procalcitonin 0.18 ng/mL (0-0.5)
[2021-09-10 08:44] LABS: Creatine Phosphokinase 51 U/L (39-308)
[2021-09-10] MEDS: famotidine 20 mg/2 mL INJ IVP ×2 (09:19→20:20)
--- NOTE | 2021-09-10 11:32 | USCV_ITS ---
Harrison Dickens Age: 85 Gender: M : 1935 Exam Date: 09/10/2021 12:51 Ordering Phys: Janak Quinonez MD Technologist: RAQUEL Exam Location: [facility] [place] Indication: COVID isolation, Shortness of breath, general weakness. BP: / HR: 99 Rhythm: Sinus Technical Quality: Adequate though technically difficult c/o very large left pleural effusion which is displacing the heart inferiorly and to the right. MEASUREMENTS (Male / Female) Normal Values 2D ECHO LV Diastolic Diameter PLAX 3.0 cm 4.2 - 5.9 / 3.9 - 5.3 cm LV Systolic Diameter PLAX 2.2 cm IVS Diastolic Thickness 1.6 cm 0.6 - 1.0 / 0.6 - 0.9 cm IVS Systolic Thickness 1.5 cm LVPW Diastolic Thickness 1.4 cm 0.6 - 1.0 / 0.6 - 0.9 cm LVPW Systolic Thickness 2.6 cm LVOT Diameter 2.4 cm LV Ejection Fraction 2D Teich 54.9 % LV Ejection Fraction MOD 2C 52.3 % LV Ejection Fraction 2C AL 63.0 % LA Diameter 2.8 cm LA Width 3.5 cm LA Height 4.5 cm RA Width 2.2 cm RA Height 4.3 cm Aorta at Sinotubular Diameter 3.9 cm M-MODE Aortic Annulus Diameter 4.8 cm LA Ao Ratio MM 0.5 MV E Point Septal Separation 0.6 cm DOPPLER AV Peak Velocity 101.0 cm/s LVOT Peak Velocity 64.0 cm/s AV Area Cont Eq vti 2.7 cm squared AV Area Cont Eq pk 2.9 cm squared MV Peak Velocity 105.0 cm/s MV Area PHT 5.6 cm squared Mitral E to A Ratio 3.2 MV E' Velocity 23.0 cm/s Mitral E to MV E' Ratio 7.3 Mitral E to LV E' Lateral Ratio 10.4 Mitral E to LV E' Septal Ratio 5.7 TR Peak Velocity 270.0 cm/s TR Peak Gradient 29.2 mmHg Right Atrial Pressure 5.0 mmHg Pulmonary Artery Systolic Pressu 34.2 mmHg PV Peak Velocity 131.0 cm/s FINDINGS Left Ventricle Normal left ventricular size, systolic function with no diagnostic regional wall motion abnormalities. Left ventricular ejection fraction is estimated at 60 %. Abnormal diastolic function. Right Ventricle Normal right ventricular size and systolic function. Right ventricular systolic pressure 34.2 mmHg. Right Atrium Normal right atrial size. Right atrial pressure estimated at 15 mm Hg. Left Atrium Normal left atrial size. Mitral Valve Structurally normal mitral valve. No mitral valve stenosis. Trace mitral valve regurgitation. Aortic Valve Thickened sclerotic trileaflet aortic valve. No aortic valve stenosis. No aortic valve regurgitation. Tricuspid Valve Structurally normal tricuspid valve. Trace to mild tricuspid valve regurgitation. Pulmonic Valve Pulmonic valve not well visualized. No pulmonary valve stenosis. Trace pulmonary valve regurgitation. Pericardium No pericardial effusion. Large left pleural effusion. Aorta Dilated aortic root measured at 43 mm (off axis images). Dilated inferior vena cava with decreased respiratory variation. CONCLUSIONS 1. Normal left ventricular size, systolic function with no diagnostic regional wall motion abnormalities. Left ventricular ejection fraction is estimated at 60 %. Abnormal diastolic function. 2. Normal right ventricular size and systolic function. 3. Large left pleural effusion. 4. Dilated aortic root measured at 43 mm. 5. Dilated inferior vena cava with decreased respiratory variation. 6. No prior similar studies to compare. Elba Nicolas MD (Electronically Signed) Final Date: 10 September 2021 15:15 S
[2021-09-10 12:20] LABS: Glucose Point of Care 144 mg/dL (70-110)
--- NOTE | 2021-09-10 12:48 | PM.CONSULT ---
Providers/Reason For Consult Consulting Physician/Specialty*: Dr. Banuelos/cardiothoracic surgery Reason for Consult*: Left hemithorax opacification Requesting Physician: Dr. Quinonez Attending Physician: Janak Quinonez MD History of Present Illness History of Present Illness Harrison Dickens is an 85 year old male who presented to the emergency department 2 days ago with complaints of increasing shortness of breath for 3 to 4 days prior to presentation. He was transported by EMS. He had a saturation of 85% on 6 L nasal cannula upon presentation. Normally, he does not require supplemental oxygenation. Initial evaluation reviewed complete opacification of the left mid thorax. There were no obvious rib fractures noted, though upon questioning, he states he did fall at home about a week prior to presentation. He resides alone. Closest relatives are in [place], [place]. Spite receiving 2 of 3 scheduled Covid vaccinations, he did test positive for Covid and currently is on remdesivir and dexamethasone. He also is on Zithromax and Rocephin. Attempt at left thoracentesis yesterday was unsuccessful with the patient becoming lethargic and minimally responsive with saturation in the high 90s on 6 L nasal cannula. Rapid response was called though by the time the team arrived, he was appropriate. Dr. Biggs's evaluation by ultrasonography during attempt at thoracentesis was that this most probably represents retained hemothorax. Chest vest therapy was initiated though no improvement radiographically noted. He has been tentatively scheduled for bronchoscopy, but I was consulted. I have reviewed his admitting x-rays and CT scan. I have conferred with Mr. Dickens at bedside. He is lying on his left side and appears to be comfortable. He is very appropriate. He states the reason for my consultation and my recommendation to consider potential left thoracotomy with evacuation of hemothorax after confirmation of no obstructive lesions through bronchoscopy. He also has conferred with Dr. Quinonez concerning his original CODE STATUS of DNI/DNR. I did discuss that this would not to be rescinded prior to surgery, and he does appear to be in agreement. He resides alone. 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 Review of Systems Const: Reports: fever(s), body aches, fatigue and malaise Eyes: Denies: change in vision Card: Reports: edema and lightheadedness; Denies: chest pain, palpitations or irregular heart rhythm Resp: Reports: dyspnea, productive cough and wheezing; Denies: hemoptysis GI: Denies: abdominal pain, nausea, vomiting, hematemesis or coffee ground emesis : Denies: flank pain, difficulty urinating or dysuria Musc: Reports: neck pain and back pain Neuro: Denies: numbness in extremities, weakness in extremities, sensory changes or difficulty walking Psych: Denies: anxiety or depression Medications/Allergies Home Medications Medication Instructions Recorded Confirmed Last Taken Type cholecalciferol (vitamin D3) 50 50 mcg PO DAILY 09/08/21 09/08/21 Unknown History mcg (2,000 unit) capsule (Vitamin D3) lisinopril 20 mg tablet 10 mg PO DAILY 09/08/21 09/08/21 Unknown History nifedipine 60 mg tablet,extended 60 mg PO DAILY 09/08/21 09/08/21 Unknown History release 24 hr pravastatin 40 mg tablet 40 mg PO DAILY 09/08/21 09/08/21 Unknown History Allergies Allergy/AdvReac Type Severity Reaction Status Date / Time No Known Allergies Allergy Unverified 09/08/21 14:32 Current Medications Generic Name Dose Route Start Last Admin Trade Name Freq PRN Reason Stop Dose Admin Acetylcysteine 100 mg 09/08/21 20:00 09/10/21 11:27 Acetylcysteine 200 Mg/Ml Sdv 4 Ml INHALATION 100 mg QID.RESPIRATORY PRISCILA Administration Albuterol/Ipratropium 3 ml 09/08/21 16:00 09/10/21 11:26 Ipratropium-Albuterol 3 Ml Neb INHALATION 3 ml QID.RESPIRATORY PRISCILA Administration Ascorbic Acid 500 mg 09/08/21 18:00 09/10/21 09:38 Ascorbic Acid 500 Mg Tablet PO Not Given BID PRISCILA Atorvastatin Calcium 20 mg 09/09/21 09:00 09/10/21 09:38 Atorvastatin 40 Mg Tablet PO Not Given DAILY PRISCILA Budesonide 0.5 mg 09/08/21 20:00 09/10/21 08:30 Budesonide 0.5 Mg/2 Ml Neb INHALATION 0.5 mg BID.RESPIRATORY PRISCILA Administration Dexamethasone 6 mg 09/08/21 15:29 09/09/21 16:07 Dexamethasone 10 Mg/Ml Inj IVP 6 mg Q24H PRISCILA Administration Famotidine 20 mg 09/08/21 20:00 09/10/21 09:19 Famotidine 20 Mg/2 Ml Inj IVP 20 mg Q12H PRISCILA Administration Remdesivir 100 mg/ Sodium 100 mls @ 100 mls/hr 09/09/21 18:00 09/09/21 20:01 Chloride IV 09/12/21 18:59 Infused Q24H PRISCILA Infusion Ceftriaxone Sodium 1,000 mg/ 50 mls @ 100 mls/hr 09/08/21 17:30 09/09/21 18:49 Sodium Chloride IV Infused Q24H PRISCILA Infusion Protocol Azithromycin 500 mg/ Sodium 250 mls @ 250 mls/hr 09/08/21 16:00 09/09/21 17:06 Chloride IV Infused Q24H PRISCILA Infusion Protocol Nifedipine 60 mg 09/09/21 09:00 09/10/21 09:38 Nifedipine Er (24 Hr) 30 Mg Tablet PO Not Given DAILY PRISCILA Sodium Chloride 4 ml 09/08/21 20:00 09/10/21 11:27 Sodium Chloride 3.5% Neb 4 Ml Neb INHALATION Not Given BID.RESPIRATORY PRISCILA Vitamin D 2,000 unit 09/09/21 09:00 09/10/21 09:38 Cholecalciferol (Vitamin D3) 1,000 Unit Tablet PO Not Given DAILY PRISCILA Zinc Gluconate 50 mg 09/09/21 09:00 09/10/21 09:38 Zinc Gluconate 50 Mg Tablet PO Not Given DAILY PRISCILA PFSH Acute PFSH: Medical History HTN (hypertension) Hyperlipidemia Surgical History No pertinent past surgical history Social History Smoking and tobacco status: never smoked Alcohol intake: never Vitals/I&O/Wt Last Vital Signs Temp 99.9 F H 09/10/21 04:00 Pulse 85 09/10/21 11:27 Resp 20 H 09/10/21 11:27 BP 143/85 09/10/21 04:00 Pulse Ox 92 09/10/21 11:27 09/09/21 09/10/21 09/10/21 22:59 06:59 14:59 Intake Total 1400 / 1760 Output Total 625 / 625 Balance 775 / 1135 Physical Exam Const: COMMON NORMALS: no acute distress, average body habitus and patient oriented x3 HENMT: COMMON NORMALS: normocephalic, atraumatic, hearing grossly normal bilaterally and external ears normal HEAD & SCALP: normocephalic and atraumatic EXTERNAL EAR: Yes external ears normal Eye: COMMON NORMALS: Equal, round and reactive pupils present, EOMs intact bilaterally and conjunctivae normal CONJUNCTIVA: Yes conjunctivae normal PUPIL: Yes Equal, round and reactive pupils present Neck/C-Spine: COMMON NORMALS: no lymphadenopathy, supple and no JVD; negative for full ROM Chest: COMMONS NORMALS: normal inspection of the chest OTHER: No palpable crepitance or localized tenderness Resp: COMMON NORMALS: normal respiratory effort; negative for clear to auscultation bilaterally EFFORT & INSPECTION: Yes able to speak in complete sentences and No symmetric chest movement AUSCULTATION: not clear to auscultation bilaterally and diminished lung sounds on the left throughout Cardio: COMMON NORMALS: no JVD, regular rate, regular rhythm, S1 normal heart sound present and No murmurs present (Cardio) RATE: regular rate RHYTHM: regular rhythm HEART SOUNDS: S1 normal heart sound present GI: COMMON NORMALS: Normal to inspection, nondistended, normoactive bowel sounds present, Soft to palpation and non-tender PALPATION: Yes Soft to palpation Extremity: COMMON NORMALS: no clubbing, cyanosis or edema Neuro: COMMON NORMALS: patient oriented x3, moves all extremities, no focal motor deficits and no sensory deficits noted Psych: COMMON NORMALS: mental status grossly normal, Normal thought process present, cooperative, normal affect and speech normal APPEARANCE: Yes grossly normal SPEECH: Yes normal speech THOUGHT PROCESS: Normal thought process present Data : 09/10/21 07:50 09/10/21 07:50 Micro: Microbiology 09/08/21 13:30 Blood Culture - Preliminary Blood NEGATIVE TO DATE 09/08/21 13:01 Blood Culture - Preliminary Blood NEGATIVE TO DATE A&P Assessment and plan (1) Hemothorax on left: Opacification of left mid thorax, presumably after a fall about 1 week ago. I cannot see an actual rib fracture. Attempted thoracentesis by Dr. Biggs was difficult with only small amount of dark blood being returned, consistent with the impression of retained hemothorax. I discussed the recommendation to consider left thoracotomy with evacuation of hemothorax and attempt to reexpand the left lung. Rationale for this was carefully discussed. The need to rescind his DNI/DNR was discussed very frankly. Potential protracted hospital course related to numerous comorbidities related to advanced age, positive Covid study, and overall deconditioning were reviewed. Details and risks of the procedure were carefully and frankly discussed. Risks reviewed include the possibility of , stroke, heart attack, major bleeding, infection, pneumonia, prolonged air leak or pneumothorax requiring prolonged need for chest tubes, organ failure, will need to continue mechanical ventilation postoperatively, failure to benefit, prolonged hospital stay, pain after the procedure, need for further procedures, inability to complete the procedure, and possible need for long-term followup. All questions were answered. Appropriate consents have been provided for review and signature. We have a confirmed appropriate ICU postoperative bed availability, we will tentatively plan for surgery tomorrow morning. I would expect related to the numerous factors listed above, that his postoperative course may be protracted and that there is a substantial risk for postoperative complications or Status: Acute Consult Attestations Medical Necessity Statement: Retained hemothorax with collapsed left lung Coding Level of Care Code Acute Maintenance Foreman for [facility] Diagnoses Hemothorax on left J94.2
--- NOTE | 2021-09-10 13:54 | P.PN_ITS ---
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, in addition to risk of empyema -We could pursue surgical intervention, which including but not limited to thoracotomy, VATS procedure, pleurodesis, which carries significant risk given his age, however he would hopefully produce a reasonable resolution left pneumothorax, trapped lung, decrease her risk of developing empyema, improved aeration of the left lung and hopefully improve his clinical outcome -Nonetheless VATS procedure and surgical procedure does carry significant risk, including but not limited to prolonged intubation, prolonged ICU hospitalizations, complications from the surgery itself, possible chest tube, emergency, all questions answered -In addition he initially voiced that he did not want to have life-sustaining measures, did not want to remain on artificial life support -If pursuing a surgical intervention is his desire, he would likely require some degree of prolonged intubation and mechanical ventilation, with goals of weaning him off, but I cannot guarantee he would not be ventilator dependent -He does have a mild COVID-19 pneumonia, currently no evidence of acute respiratory distress, but this possibly could progress -Certainly is a difficult situation, I discussed the risks and benefits of all options, he postsurgical all questions answered -For now he is agreeable to changes CODE STATUS to DNR, is agreeable to intubation however he does not want to remain on life-sustaining measures for a long time, he does not want to live on artificial life support -I advised him that he will have to talk about his DNR status with Dr. Banuelos -He is agreeable to surgical intervention, discussed risks and benefits, he voiced understanding, all questions answered, agreed to proceed -In addition I spoke to patient's son Leo, he is agreeable with father's wishes, -I also spoke to patient's other son Edmond Dickens phone #[phone] -I again spoke to patient, discussed his CODE STATUS clearly in the afternoon, he is agreeable to change himself to full code, agreeable to intubation, agreeable to chest compressions, CPR, shocking, drugs as per ACLS, isolation however he was clear with me that he does not want to remain on artificial life support for a prolonged period of time, if the likelihood of him having a meaningful recovery is very unlikely to take him off artificial life support Vitals/I&O/Wt Last Vital Signs Temp 99.9 F H 09/10/21 04:00 Pulse 85 09/10/21 11:27 Resp 20 H 09/10/21 11:27 BP 143/85 09/10/21 04:00 Pulse Ox 92 09/10/21 11:27 09/09/21 09/10/21 09/10/21 22:59 06:59 14:59 Intake Total 1400 / 1760 Output Total 625 / 625 Balance 775 / 1135 Physical Exam Const: COMMON NORMALS: no acute distress and patient oriented x3 Resp: COMMON NORMALS: normal respiratory effort, No retractions and No use of accessory muscles AUSCULTATION: breath sounds absent on th left Cardio: COMMON NORMALS: regular rate, regular rhythm, S1 normal heart sound present and S2 normal heart sound present RATE: regular rate RHYTHM: regular rhythm HEART SOUNDS: S1 normal heart sound present and S2 normal heart sound present GI: COMMON NORMALS: Normal to inspection, nondistended, normoactive bowel so unds present, Soft to palpation, non-tender and No hepatosplenomegaly present PALPATION: Yes Soft to palpation and Yes No hepatosplenomegaly present Extremity: COMMON NORMALS: no pedal edema Neuro: COMMON NORMALS: patient oriented x3 Data : 09/10/21 07:50 09/10/21 07:50 Micro: Microbiology 09/08/21 13:30 Blood Culture - Preliminary Blood NEGATIVE TO DATE 09/08/21 13:01 Blood Culture - Preliminary Blood NEGATIVE TO DATE A&P Assessment and plan (1) Collapse of left lung: Status: Acute (2) COVID-19: Status: Acute (3) Pneumonia due to COVID-19 virus: Status: Acute (4) Hemothorax on left: Status: Acute (5) Pleural effusion: Status: Acute Plan COVID-19 pneumonia -Requiring 6 L On 6 L -1.? No evidence of pulmonary embolus. 2.? Large left pleural effusion with scattered areas of increased attenuation may represent blood products. Associated compression of the left lower lobe with obstruction of the left lower lobe bronchi. 3.? 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 This can be followed up with conventional angiography if indicated. 4.? Numerous lesions in the liver nonspecific on this study but most likely hepatic cysts. This can be followed up with ultrasound. 5.? Distended gallbladder with dense increased attenuation material likely sludge. Ultrasound thoracocentesis 1.? Unsuccessful LEFT thoracentesis. Very echogenic clotted material consistent with a hemothorax. Unsuccessful aspiration. Diffuse drops of very dark red clotted blood aspirated initially. 2.? Chest radiograph to follow to evaluate for pneumothorax. 3.? A rapid response was necessary after the examination was completed patient briefly became unresponsive. Chest x-ray Essentially complete opacification of the LEFT thorax. Patient has a known large pleural effusion/hemothorax. No significant complications status post the recent attempted thoracentesis. No pneumothorax evident. Plan: -Currently under medical floors -Remdesivir day 3 of 5 -Decadron day 3 of 10 -Has left lung consolidation and/or collapse, Rocephin and azithromycin for second bacterial pneumonia prophylaxis -Vitamin C, zinc, vitamin D - incentive spirometer, flutter valve -Budesonide, ipratropium Left lung collapse, left hemothorax -For left lung collapse chest vest therapy, hypertonic saline, Mucomyst, monitor respiratory status, repeat chest x-ray, continues to have white out of left lung -Left pleural effusion, likely hemothorax, reports trauma, unsuccessful thoracocentesis due to blood contents and clotting off, continues to have complete whiteout of left lung, with slight midline shift, will likely require thoracotomy -Agreeable to proceed with surgical intervention -Patient has changes CODE STATUS to full code, however does not want to remain on life-sustaining measures if the likelihood of him having a meaningful recovery is unlikely -Lovenox for DVT prophylaxis Attestations Medical Necessity Statement*: Patient requires hospitalization for left hemothorax, COVID-19 pneumonia Coding Level of Care Code Acute Salmon Troll Fisher for Chg Fwd Diagnoses Collapse of left lung J98.11 COVID-19 U07.1 Pneumonia due to COVID-19 virus U07.1; J12.82 Hemothorax on left J94.2 Pleural effusion J90
[2021-09-10] MEDS: dexamethasone 10 mg/mL INJ 6 MG IVP (16:05)
[2021-09-10] MEDS: azithromycin 500 MG in sodium chloride 0.9% 250 ML 250 MG IV (16:05)
[2021-09-10] MEDS: ascorbic acid 500 mg Tablet PO (17:56)
[2021-09-10] MEDS: cefTRIAXone 1,000 MG in sodium chloride 0.9% (plus) 50 ML 100 MG IV (17:56)
[2021-09-10] MEDS: remdesivir 100 MG in sodium chloride 0.9% (100 ml) 80 ML IV (20:30)
[2021-09-10 21:01] LABS: Glucose Point of Care 219 mg/dL (70-110)
--- NOTE | 2021-09-10 23:56 | PC.NURSE ---
Report called to Radha LOWE in ICU
[2021-09-11] VITALS (80 sets, daily range): BP systolic 117–151; BP diastolic 63–98; PULSE 70–106; RESP 0–35; TEMP 36.2–37.1; O2SAT 88–98; BMI 31.1
--- NOTE | 2021-09-11 01:04 | PC.NURSE ---
Patient transferred to ICU room 6 via bed with portable O2 at 6LNC and telemetry. Tolerated transfer without difficulty. Received at bedside by Gisel LOWE and Radha LOWE. Dina MENDOZA notified that Bipap and percussion vest are in room 256-1 awaiting pickup.
[2021-09-11 04:29] LABS: ABG PCO2 45.4 mmHg (35-45); Arterial Blood Gas Hematocrit 33.5 % (42-52); Base Excess ABG 2.6 mmol/L (-2.0-2.0); Blood Gas Operator Identificat AMH; Blood Gas Sample Site Brachial, left; Blood Gas Sample Type Arterial; HCO3 ABG 27.9 mmol/L (22-26); Oxygen Device NC; PO2 ABG 71.1 mmHg (80.0-100.0)
--- NOTE | 2021-09-11 05:04 | XRR_ITS ---
PROCEDURE INFORMATION: Exam: XR Chest Exam date and time: 09/11/2021 5:04 AM Age: 85 years old Clinical indication: Shortness of breath; Patient HX: F/u covid pneumonia with left pleural effusion. ; Additional info: SOB TECHNIQUE: Imaging protocol: XR of the chest. Views: 1 view. Total images: 1 COMPARISON: CR XR chest 1V portable [id number] 09/10/2021 4:23 AM FINDINGS: Lungs: Whiteout of the left hemithorax without shift of mediastinal structures unchanged from prior exam. Right lung clear. Heart size cannot be evaluated due to whiteout of left hemithorax. Pleural spaces: Unremarkable. No pleural effusion. No pneumothorax. Heart/Mediastinum: See Lungs finding. Bones/joints: Osseous structures are unchanged from the prior exam. XR/XR chest 1V portable [id number] IMPRESSION: Whiteout of the left hemithorax without shift of mediastinal structures unchanged from prior exam.
--- NOTE | 2021-09-11 05:41 | PM.PN ---
Subjective Subjective: Interval history: Bed availability has been found in ICU. Mr. Dickens is scheduled for left thoracotomy with evacuation of hemothorax and release of trapped lung this morning. He appears to be resting comfortably on rounds. Vitals/I&O/Wt Last Vital Signs Temp 98.5 F 09/11/21 03:48 Pulse 89 09/11/21 05:30 Resp 25 H 09/11/21 05:30 BP 124/65 09/11/21 05:30 Pulse Ox 91 09/11/21 05:30 09/10/21 09/10/21 09/11/21 14:59 22:59 06:59 Intake Total 400 / 400 500 / 900 Balance 400 / 400 500 / 900 Weight last 48 hrs Weight 229 lb 15.991 oz Weight 230 lb Data : 09/10/21 07:50 09/10/21 07:50 A&P Assessment and plan (1) Hemothorax on left: We will plan to proceed with bronchoscopy and left thoracotomy with evacuation of hemothorax Status: Acute Attestations Medical Necessity Statement*: Large left hemothorax with trapped lung Coding Level of Care Code Acute Tacking Stitch Remover for Chg Kaylie Diagnoses Hemothorax on left J94.2
--- NOTE | 2021-09-11 06:00 | ECG_ITS ---
[facility] Test Date: 2021-09-11 Pat Name: Harrison Dickens Department: Room: ICU06 Gender: Male Shearing Shed Hand: : 1935 Requested By: Janak Quinonez Order Number: [id number] [place] MD: Elba Nicolas M.D. Measurements Intervals [place] Rate: 99 P: 43 NE: 130 QRS: 6 QRSD: 97 T: 30 QT: 328 QTc: 421 Interpretive Statements SINUS RHYTHM NONSPECIFIC T-WAVE ABNORMALITY Compared to ECG 09/10/2021 04:09:52 No significant changes Electronically Signed On 09-13-2021 8:57:14 SLOT ATTENDANT by Elba Nicolas M.D. [email or web address]Paciniantipp[facility] hospitalAmie Streetmiddletown hospitalSilicon Biology/store/OM/[id number]
--- NOTE | 2021-09-11 06:09 | P.ANESASSM_ITS ---
Pre-Anesthetic Assessment Height/Weight: Height 1.83 m Weight 104.326 kg Temp Pulse Resp BP Pulse Ox 98.5 F 89 25 H 124/65 91 09/11/21 03:48 09/11/21 05:30 09/11/21 05:30 09/11/21 05:30 09/11/21 05:30 Operation Date: 09/11/21 07:00 Proposed Procedures p Thoracotomy(Left) - MD ysabel Bar Bronchoscopy(Left) - Harrison Banuelos MD s Possible Pleurodesis(Left) - Harrison Banuelos MD s Possible VATS, possible decortication(Left) - Harrison Banuelos MD Familial anesthetic complications: None Was Beta Hernandez taken within 24 hours: N/A Was Clonidine taken within 24 hours: N/A Last intake: > 8 hrs Social No alcohol and No tobacco Exam alert, oriented x 3 and regular rate & rhythm Coarse breath sound b/l, diminised onR Airway Cervical ROM: within normal limits Mallampati: Class III Dentition: full Pulmonary COVID 19 pneumonia w/ Hemothorax CV/HEM Hypertension Metabolic Hyperlipidemia Anesthetic Plan ASA status: 3 Anesthesia: General Other Pertinent Information Discussed with patient regarding placement of epidural. In looking at recomm endations for thoracic epidural placement in COVID-19, there are case reports of spontaneous epidural abscess developing at a higher than normal rate in covid-19 patients. But no clear recommendations or guidelines. Thus patient may be at higher risk of epidural abscess w/ epidural placement than general population. Discussed with patient that epidural helps with post-op recovery, assists with taking deep breaths and PT. However, he may be a higher risk (percent unkown) than general population of development of abscess. Patient decided to decline epidural at the moment. Discussed that if he were indeed to desire the epidural after the procedure we can still place it at that time. Medications/Allergies Home Medications Medication Instructions Recorded Confirmed Last Taken Type cholecalciferol (vitamin D3) 50 50 mcg PO DAILY 09/08/21 09/08/21 Unknown History mcg (2,000 unit) capsule (Vitamin D3) lisinopril 20 mg tablet 10 mg PO DAILY 09/08/21 09/08/21 Unknown History nifedipine 60 mg tablet,extended 60 mg PO DAILY 09/08/21 09/08/21 Unknown History release 24 hr pravastatin 40 mg tablet 40 mg PO DAILY 09/08/21 09/08/21 Unknown History Allergies Allergy/AdvReac Type Severity Reaction Status Date / Time No Known Allergies Allergy Unverified 09/08/21 14:32 Current Medications Generic Name Dose Route Start Last Admin Trade Name John PRN Reason Stop Dose Admin Acetylcysteine 100 mg 09/08/21 20:00 09/10/21 21:18 Acetylcysteine 200 Mg/Ml Sdv 4 Ml INHALATION 100 mg QID.RESPIRATORY PRISCILA Administration Albuterol/Ipratropium 3 ml 09/08/21 16:00 09/10/21 21:14 Ipratropium-Albuterol 3 Ml Neb INHALATION 3 ml QID.RESPIRATORY PRISCILA Administration Ascorbic Acid 500 mg 09/08/21 18:00 09/10/21 17:56 Ascorbic Acid 500 Mg Tablet PO 500 mg BID PRISCILA Administration Atorvastatin Calcium 20 mg 09/09/21 09:00 09/10/21 09:38 Atorvastatin 40 Mg Tablet PO Not Given DAILY PRISCILA Budesonide 0.5 mg 09/08/21 20:00 09/10/21 21:14 Budesonide 0.5 Mg/2 Ml Neb INHALATION 0.5 mg BID.RESPIRATORY PRISCILA Administration Dexamethasone 6 mg 09/08/21 15:29 09/10/21 16:05 Dexamethasone 10 Mg/Ml Inj IVP 6 mg Q24H PRISCILA Administration Famotidine 20 mg 09/08/21 20:00 09/10/21 20:20 Famotidine 20 Mg/2 Ml Inj IVP 20 mg Q12H PRISCILA Administration Remdesivir 100 mg/ Sodium 100 mls @ 100 mls/hr 09/09/21 18:00 09/10/21 21:36 Chloride IV 09/12/21 18:59 Infused Q24H PRISCILA Infusion Ceftriaxone Sodium 1,000 mg/ 50 mls @ 100 mls/hr 09/08/21 17:30 09/10/21 19:16 Sodium Chloride IV Infused Q24H PRISCILA Infusion Protocol Azithromycin 500 mg/ Sodium 250 mls @ 250 mls/hr 09/08/21 16:00 09/10/21 17:05 Chloride IV Infused Q24H PRISCILA Infusion Protocol Nifedipine 60 mg 09/09/21 09:00 09/10/21 09:38 Nifedipine Er (24 Hr) 30 Mg Tablet PO Not Given DAILY PRISCILA Sodium Chloride 4 ml 09/08/21 20:00 09/10/21 21:21 Sodium Chloride 3.5% Neb 4 Ml Neb INHALATION Not Given BID.RESPIRATORY PRISCILA Vitamin D 2,000 unit 09/09/21 09:00 09/10/21 09:38 Cholecalciferol (Vitamin D3) 1,000 Unit Tablet PO Not Given DAILY PRISCILA Zinc Gluconate 50 mg 09/09/21 09:00 09/10/21 09:38 Zinc Gluconate 50 Mg Tablet PO Not Given DAILY PRISCILA [facility] Anesthesia Medical History HTN (hypertension) Hyperlipidemia Surgical History No pertinent past surgical history Social History Smoking and tobacco status: never smoked Alcohol intake: never Data Anesthesia : 09/10/21 07:50 09/10/21 07:50 Short CBC 09/09/21 09/10/21 Range/Units 08:35 07:50 WBC 5.4 5.2 (4.0-10.0) 10^3/uL Hgb 11.9 11.2 L (11.7-16.6) g/dL Hct 37.3 L 35.4 L (42.0-52.0) % MCV 97.6 H 98.1 H (80-94) fl Plt Count 187 194 (130-400) 10^3/cmm Neut % (Auto) 64.9 76.7 % Neut # (Auto) 3.49 4.01 (1.8-7.7) 10^3/uL BMP 09/09/21 09/10/21 08:35 07:50 Sodium 139 138 Potassium 4.0 4.7 Chloride 103 104 Carbon Dioxide 25 25 BUN 33 H 37 H Creatinine 1.2 1.1 Glucose 127 H 144 H Calcium 7.9 L 8.0 L Cardiac Enzymes 09/09/21 09/09/21 09/10/21 Range/Units 08:35 08:35 07:50 Creatine Kinase Cancelled 98 51 NT-Pro-B Natriuret Pep Cancelled 59 54 Liver Function 09/09/21 09/10/21 Range/Units 08:35 07:50 Total Bilirubin 0.5 0.4 (0.15-1.2) mg/dL AST 18 49 H (0-40) U/L ALT 11 33 (0-41) U/L Alkaline Phosphatase 63 101 (40-130) IU/L Albumin 3.0 L 3.0 L (3.5-5.2) g/dL Blood Bank 09/10/21 13:40 Blood Type O Positive Rho(D) Type Positive Antibody Screen Negative Coags 09/09/21 09/09/21 09/09/21 08:35 08:35 08:35 PT 14.10 INR 1.06 C-Reactive Protein Cancelled 55.9 H 09/10/21 09/10/21 07:50 07:50 PT 14.20 INR 1.06 C-Reactive Protein 79.6 H ABG 09/09/21 09/10/21 09/11/21 10:10 04:18 04:18 Specimen Type Arterial Arterial Arterial Sample Site Radial, left Radial, left Brachial, left ABG pH 7.34 L 7.33 L 7.40 ABG pCO2 47.1 H 49.1 H 45.4 H ABG pO2 58.7 L 65.5 L 71.1 L ABG HCO3 25.2 25.8 27.9 H ABG O2 Saturation 90.0 ABG Base Excess -1.0 -0.7 2.6 H A-a O2 Gradient 4.4 L O2 Delivery Device Nc Nc Nc O2 Liters/Min 6.0 6.0 6.0 FiO2 44.0 Cardiac Studies: Echocardiogram 09/10/21
--- NOTE | 2021-09-11 06:21 | PC.NURSE ---
Dr. Márquez at bedside at 0540 to discuss epidural.
--- NOTE | 2021-09-11 07:37 | PC.NURSE ---
in surgery at this time family aware of status
[2021-09-11] MEDS: vancomycin 1,000 MG SDV 2000 MG IRRIGATION (08:10)
--- NOTE | 2021-09-11 08:25 | PC.NURSE ---
Family; @0600 pt's family came to ICU doors requesting visitation with pt before being taken back to OR this AM. Assigned RN to pt's care explained facility protocols surrounding covid guidelines. This RN was updated on situation and went out to update on current POC and pt status. Family agitated based on promise of being able to see pt before being taken to OR and continued to ask to speak with pt and be let inside of unit for visitation. Family states they were given directions to come to hospital at 0600 before 0700 scheduled operation. This RN spoke with MD media monitor overnight (Dr. Parmar), as well as house sup. Both agreed to permit pt's family for a short visitation inside of pt's room. RN explained risks associated with entering in covid positive room. Family verbalized understanding.
--- NOTE | 2021-09-11 10:01 | P.OP_ITS ---
Operative Report Date of procedure: September 11, 2021 Pre-op diagnosis: Suspected large left hemothorax Post-op diagnosis: Left hemothorax Procedure done: 1. Flexible diagnostic bronchoscopy 2. 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 This was resected. Brief History: Mr. Dickens is an 85-year-old gentleman who presented to the emergency department 3 days ago with complaints of shortness of breath and found to have complete whiteout of the left hemithorax. Attempted thoracentesis return clot and it was suspected that he had a hemothorax. Etiology is unclear though upon further questioning, there was an apparent fall about a week and a half ago. After careful discussion, he agreed to surgical exploration. Details and risk of the procedure were reviewed. Proper consents were reviewed and signed. Procedure: As Mr. Dickens is currently being treated for Covid infection, the potential increased risk for epidural abscess was discussed with Mr. Dickens by Dr. Márquez. Therefore, they elected not to proceed with preoperative placement of an epidural catheter. He was simply taken to the operating room and carefully position where appropriate IVs were confirmed in place. Right radial arterial line was placed. He underwent general endotracheal anesthesia with placement of a single-lumen tube. 1. Flexible diagnostic bronchoscopy. To confirm there was not an obstruction resulting in the opacification of left hemothorax, flexible bronchoscopy was performed. Main griffin and secondary griffin were sharp. Branching anatomy was normal. Mucosa was not friable. There was no evidence for endobronchial lesions or extrinsic compression on the right side. On the left side, at the takeoff between the left upper and lower lobes, there was almost immediately noted to be extrinsic compression of all secondary and tertiary bronchi from this level. There was no evidence for endobronchial lesion which would result in the obstruction. Scope was then withdrawn and Mr. Dickens was repositioned for planned left chest exploration. #2. Left posterior lateral thoracotomy with evacuation of large hemothorax. There was difficulty in exchanging the single-lumen endotracheal tube, utilized for bronchoscopy, to a double-lumen endobronchial tube. Therefore, we elected to proceed with the procedure with a single-lumen endotracheal tube. After carefully being positioned in the right lateral decubitus position over axillary roll with protective padding, his entire left chest was sterilely prepped and draped. A muscle-sparing posterior lateral thoracotomy incision was then made and carried down through this obtains tissues to the chest wall. Fifth intercostal space was entered with air was immediate return of dark, what appeared to be old blood, under pressure. Complete evacuation of the left chest was performed with removal of 3.6 L of dark blood. There was immediate improvement in oxygenation and stabilization of his blood pressure. Finochietto retractor and tuffier retractor were placed. The chest wall was carefully opened and then a methodical and systemic inspection was performed. Palpation of the lung parenchyma revealed no abnormalities in the upper lobe. There was no evidence for pleural seeding or metastatic disease. There was no evidence for chest wall hematoma which would be consistent with a rib fracture. It should be noted, also, that no rib fracture was noted on prior radiographic studies. Further inspection and fairly revealed clot over the diaphragm which was removed manually. Continued inspections posteriorly and inferiorly did re veal an abnormality with thinned parenchyma and swelling to a portion of the lower lobe laterally and posteriorly. Visually, I was concerned that this may possibly represent some form of AVM. Therefore, I elected to resect this utilizing a mechanical stapler over buttressed strips. This specimen was then sent to pathology for permanent analysis. Small areas of parenchymal tear were treated with biological adhesive to try and limit air leak. There were no other abnormalities visual or palpable in the left lower lobe. Entire wound was irrigated with antibiotic solution. We then elected to proceed with closure. No other source of bleeding could be readily identified. 2 pleural tubes were placed, 1 superiorly and 1 inferiorly and posteriorly. Chest wall was reapproximated with #1 Vicryl suture. Fascia was closed with O Vicryl suture. Subcutaneous layer was closed with 2-0 Vicryl suture and the skin was reapproximated in a subcuticular manner with 3-0 Monocryl suture. Mr. Dickens was then carefully returned to the supine position where he was awakened and extubated on the OR table and then transferred to the ICU in stable condition. His son was contacted throughout the procedure by phone and made aware of updates.
--- NOTE | 2021-09-11 10:01 | XRR_ITS ---
PROCEDURE INFORMATION: Exam: XR Chest Exam date and time: 09/11/2021 10:01 AM Age: 85 years old Clinical indication: Device placement; Chest tube; Additional info: Post op hemothorax evacuation TECHNIQUE: Imaging protocol: XR of the chest. Views: 1 view. Total images: 1 COMPARISON: CR (CHEST, ) 09/11/2021 5:21 AM FINDINGS: Tubes, catheters and devices: Two left-sided chest tubes present in the left pleural space. Lungs: See Pleural spaces finding. Pleural spaces: Significant improvement in left pleural fluid and left lung opacity. Trace pleural fluid in the minor fissure. Heart/Mediastinum: Unremarkable. No cardiomegaly. Bones/joints: Osseous structures are unchanged from the prior exam. Soft tissues: Subcutaneous emphysema in the chest wall is again noted and appears unchanged. XR/XR chest 1V portable [id number] IMPRESSION: 1. Two left-sided chest tubes present in the left pleural space. 2. Significant improvement in left pleural fluid and left lung opacity. 3. Trace pleural fluid in the minor fissure.
[2021-09-11] MEDS: morphine 4 mg/mL SDV 1 mL 2 MG IVP ×2 (11:21→15:55)
[2021-09-11] MEDS: ipratropium-albuterol 3 mL Neb INHALATION ×3 (11:45→19:46)
--- NOTE | 2021-09-11 12:33 | PC.SOCIAL ---
IMM UPDATED IMM dated and initialed and copy given to patient.
[2021-09-11] MEDS: ketorolac 30 mg/mL INJ IVP ×2 (12:45→19:49)
[2021-09-11] MEDS: dexamethasone 10 mg/mL INJ 6 MG IVP (12:46)
--- NOTE | 2021-09-11 12:49 | PC.NURSE ---
unable to take po meds at this time sedated.. oral care few ice chip severe pain left chest area.. medicated
[2021-09-11 13:37] LABS: Bacillus cereus group Not Detected (NOT DETECT); Bacillus subtillis group Not Detected (NOT DETECT); Corynebacterium Detected (NOT DETECT); Cutibacterium acnes (P.acnes) Not Detected (NOT DETECT); Enterococcus Not Detected (NOT DETECT); Enterococcus faecalis Not Detected (NOT DETECT); Enterococcus faecium Not Detected (NOT DETECT); Lactobacillus species Not Detected (NOT DETECT); Listeria Not Detected (NOT DETECT); Listeria monocytogenes Not Detected (NOT DETECT); Micrococcus Not Detected (NOT DETECT); Pan Candida Not Detected (NOT DETECT); Pan Gram-Negative Not Detected (NOT DETECT); Staphylococcus epidermidis Not Detected (NOT DETECT); Staphylococcus lugdunensis Not Detected (NOT DETECT); Staphylococcus species Not Detected (NOT DETECT); Streptococcus agalactiae Not Detected (NOT DETECT); Streptococcus anginosus group Not Detected (NOT DETECT); Streptococcus pneumoniae Not Detected (NOT DETECT); Streptococcus pyogenes Not Detected (NOT DETECT); Streptococcus species Not Detected (NOT DETECT)
--- NOTE | 2021-09-11 14:26 | P.PN_ITS ---
Subjective Subjective: Interval history: Patient was seen postoperatively, he is alert to person, not to place, not to time, on 5 L, normotensive, has [address], complaining of pain, Vitals/I&O/Wt Last Vital Signs Temp 97.1 F L 09/11/21 11:00 Pulse 93 09/11/21 12:00 Resp 14 09/11/21 12:00 BP 133/74 09/11/21 12:00 Pulse Ox 89 L 09/11/21 12:00 09/10/21 09/11/21 09/11/21 22:59 06:59 14:59 Intake Total 400 / 400 500 / 900 360 / 360 Output Total 1000 / 1000 2600 / 2600 Balance 400 / 400 -500 / -100 -2240 / -2240 Weight last 48 hrs Weight 104.326 kg Weight 104.326 kg Physical Exam Const: COMMON NORMALS: no acute distress and patient oriented x3 Resp: COMMON NORMALS: normal respiratory effort, No retractions and No use of accessory muscles AUSCULTATION: crackles OTHER: 2 left-sided chest tubes in place, air leak present Cardio: COMMON NORMALS: regular rate, regular rhythm, S1 normal heart sound present and S2 normal heart sound present RATE: regular rate RHYTHM: regular rhythm HEART SOUNDS: S1 normal heart sound present and S2 normal heart sound present GI: COMMON NORMALS: Normal to inspection, nondistended, normoactive bowel sounds present, Soft to palpation, non-tender and No hepatosplenomegaly present PALPATION: Yes Soft to palpation and Yes No hepatosplenomegaly present Extremity: COMMON NORMALS: no pedal edema Neuro: COMMON NORMALS: patient oriented x3 Psych: COMMON NORMALS: mental status grossly normal Data : 09/11/21 06:30 09/11/21 06:30 Micro: Microbiology 09/08/21 13:01 Blood Culture - Preliminary Blood Gram positive catie A&P Assessment and plan (1) Collapse of left lung: Status: Acute (2) COVID-19: Status: Acute (3) Pneumonia due to COVID-19 virus: Status: Acute (4) Hemothorax on left: Status: Acute (5) Pleural effusion: Status: Acute Plan COVID-19 pneumonia -Requiring on 5 L -1.? No evidence of pulmonary embolus. 2.? Large left pleural effusion with scattered areas of increased attenuation may represent blood products. Associated compression of the left lower lobe with obstruction of the left lower lobe bronchi. 3.? 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 This can be followed up with conventional angiography if indicated. 4.? Numerous lesions in the liver nonspecific on this study but most likely hepatic cysts. This can be followed up with ultrasound. 5.? Distended gallbladder with dense increased attenuation material likely sludge. Ultrasound thoracocentesis 1.? Unsuccessful LEFT thoracentesis. Very echogenic clotted material consistent with a hemothorax. Unsuccessful aspiration. Diffuse drops of very dark red clotted blood aspirated initially. 2.? Chest radiograph to follow to evaluate for pneumothorax. 3.? A rapid response was necessary after the examination was completed patient briefly became unresponsive. Chest x-ray Essentially complete opacification of the LEFT thorax. Patient has a known large pleural effusion/hemothorax. No significant complications status post the recent attempted thoracentesis. No pneumothorax evident. Plan: -Currently in ICU -Remdesivir day 4-5 -Decadron day 4 of 10 -Has left lung consolidation and/or collapse, Rocephin and azithromycin for second bacterial pneumonia prophylaxis -Vitamin C, zinc, vitamin D - incentive spirometer, flutter valve -Budesonide, ipratropium Left lung collapse, left hemothorax -For left lung collapse chest vest therapy, hypertonic saline, Mucomyst, monitor respiratory status, repeat chest x-ray, continues to have white out of left lung -Left pleural effusion, likely hemothorax, reports trauma, unsuccessful thoracocentesis due to blood contents and clotting off, continues to have complete whiteout of left lung, with slight midline shift, will likely require thoracotomy -Agreeable to proceed with surgical intervention -Status post bronchoscopy, left thoracotomy by Dr. 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
[2021-09-11] MEDS: azithromycin 500 MG in sodium chloride 0.9% 250 ML 250 MG IV (15:55)
[2021-09-11] MEDS: cefTRIAXone 1,000 MG in sodium chloride 0.9% (plus) 50 ML 100 MG IV (17:07)
[2021-09-11] MEDS: remdesivir 100 MG in sodium chloride 0.9% (100 ml) 80 ML IV (18:39)
[2021-09-11 19:17] LABS: Glucose Point of Care 154 mg/dL (70-110)
[2021-09-11] MEDS: budesonide 0.5 mg/2 mL Neb INHALATION (19:46)
[2021-09-11] MEDS: famotidine 20 mg/2 mL INJ IVP (19:49)
[2021-09-12] VITALS (66 sets, daily range): BP systolic 115–162; BP diastolic 67–100; PULSE 80–116; RESP 0–26; TEMP 36.6–37.2; O2SAT 89–96
[2021-09-12] MEDS: TRAMadol 50 mg Tablet PO ×2 (00:17→13:50)
[2021-09-12] MEDS: ketorolac 30 mg/mL INJ IVP ×2 (02:12→20:31)
[2021-09-12 04:42] LABS: Basophils % 0.1 %; Hematocrit 34.5 % (42.0-52.0); Lymphocytes # 0.4 10^3/uL (0.8-4.8); Lymphocytes % 5.1 %; Mean Corpuscular HGB Conc 31.9 g/dL (30.0-36.0); Mean Corpuscular Hemoglobin 31.3 pg (28.0-34.0); Mean Platelet Volume 10.3 fL (7.4-10.4); Monocytes # 0.7 10^3/uL (0.2-0.9); Monocytes % 7.7 %; Neutrophils # 7.46 10^3/uL (1.8-7.7); Neutrophils % 86.5 %; Nucleated Red Blood Cells % 0 %; Platelet Count 245 10^3/cmm (130-400); Red Blood Count 3.52 10^6/uL (4.1-5.3); Red Cell Distribution Width 13.3 % (12.1-15.1); White Blood Count 8.6 10^3/uL (4.0-10.0)
[2021-09-12 04:43] LABS: ABG PCO2 48.2 mmHg (35-45); ABG PH Result 7.38 (7.35-7.45); Arterial Blood Gas Hematocrit 35.4 % (42-52); Blood Gas Allen Test Pos; Blood Gas Sample Site Radial, right; Blood Gas Sample Type Arterial; HCO3 ABG 28.8 mmol/L (22-26); Oxygen Device NC; PO2 ABG 64.3 mmHg (80.0-100.0)
[2021-09-12 04:47] LABS: INR 1.25 (0.8-1.2)
[2021-09-12 05:12] LABS: NT Pro B Type Natriuretic Pept 288 pg/mL (0-450); Procalcitonin 0.15 ng/mL (0-0.5)
[2021-09-12 05:24] LABS: Alanine Aminotransferase 17 U/L (0-41); Albumin Level 2.9 g/dL (3.5-5.2); Alkaline Phosphatase 76 IU/L (40-130); Anion Gap 13.5 (5-19); Aspartate Amino Transferase 18 U/L (0-40); Blood Urea Nitrogen 30 mg/dL (8-23); C Reactive Protein 61.2 mg/L (0.0-4.9); Calcium 7.9 mg/dL (8.5-10.5); Carbon Dioxide 26 mmol/L (22-29); Chloride 107 mmol/L (98-107); Creatine Phosphokinase 262 U/L (39-308); Globulin 2.1 g/dL (1.3-4.6); Glucose 167 mg/dL (65-115); Magnesium 2.4 mg/dL (1.7-2.3); Osmolality Calculated 304 mOsm/kg (285-295); Phosphorus 2.6 mg/dL (2.5-4.5); Potassium 4.5 mmol/L (3.5-5.1); Sodium 142 mmol/L (136-145); Total Bilirubin 0.3 mg/dL (0.15-1.2)
[2021-09-12 06:21] LABS: Glucose Point of Care 145 mg/dL (70-110)
--- NOTE | 2021-09-12 07:00 | XRR_ITS ---
PROCEDURE INFORMATION: Exam: XR Chest Exam date and time: 09/12/2021 7:00 AM Age: 85 years old Clinical indication: Dyspnea; Additional info: SOB TECHNIQUE: Imaging protocol: XR of the chest. Views: 1 view. COMPARISON: CR (CHEST, ) 09/11/2021 11:14 AM FINDINGS: Tubes, catheters and devices: There is stable positioning of 2 thoracostomy tubes on the left. Lungs: Patchy opacities persist in the left hemithorax. Pleural spaces: The left hemidiaphragm is obscured likely secondary to a left pleural effusion. This appears slightly more prominent today compared with yesterday's examination. Heart/Mediastinum: Unremarkable. No cardiomegaly. Bones/joints: Unremarkable. XR/XR chest 1V portable [id number] IMPRESSION: 1. Stable positioning of the left thoracostomy tubes 2. Slightly increased pleural effusion compared with yesterday's examination. 3. Patchy opacities in the left hemithorax are unchanged from yesterday's examination.
[2021-09-12] MEDS: budesonide 0.5 mg/2 mL Neb INHALATION ×2 (08:10→20:02)
[2021-09-12] MEDS: ipratropium-albuterol 3 mL Neb INHALATION ×4 (08:10→20:02)
[2021-09-12] MEDS: pantoprazole DR 40 mg Tablet PO (08:21)
[2021-09-12] MEDS: NIFEdipine ER (24 hr) 30 mg Tablet 60 MG PO (08:21)
[2021-09-12] MEDS: cholecalciferol (vitamin D3) 1,000 unit Tablet 2000 UNIT PO (08:21)
[2021-09-12] MEDS: atorvastatin 40 mg Tablet 20 MG PO (08:21)
[2021-09-12] MEDS: zinc gluconate 50 mg Tablet PO (08:22)
[2021-09-12] MEDS: ascorbic acid 500 mg Tablet PO ×2 (08:22→17:50)
--- NOTE | 2021-09-12 08:53 | PM.PN ---
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 Mr. Dickens had a uneventful night. He is cooperative and alert this morning. There is no air leak noted on his chest tube in his chest tube output was about 210 cc overnight. Surgical dressings are clean and dry. Chest x-ray still revealed\haziness in the left hemithorax with continued patchy opacities He will require consistent pulmonary toilet. Vitals/I&O/Wt Last Vital Signs Temp 98.9 F 09/12/21 03:47 Pulse 90 09/12/21 06:00 Resp 20 H 09/12/21 04:15 BP 135/78 09/12/21 04:15 Pulse Ox 89 L 09/12/21 04:00 09/11/21 09/12/21 09/12/21 22:59 06:59 14:59 Intake Total 450 / 810 120 / 930 Output Total 720 / 3320 1140 / 4460 Balance -270 / -2510 -1020 / -3530 Weight last 48 hrs Weight 229 lb 15.991 oz Weight 230 lb Physical Exam Chest: OTHER: Surgical dressings and chest tubes remain in good position. Resp: COMMON NORMALS: normal respiratory effort, No retractions and No use of accessory muscles; negative for clear to auscultation bilaterally (Decreased breath sounds and some crackles in the left mid and lower lung fi) AUSCULTATION: not clear to auscultation bilaterally (Decreased breath sounds and some crackles in the left mid and lower lung fi) Data : 09/12/21 03:30 09/12/21 03:30 Micro: Microbiology 09/08/21 13:01 Blood Culture - Preliminary Blood Corynebacterium species A&P Assessment and plan (1) Status post thoracotomy: 1. Status post left thoracotomy and evacuation of large hemothorax. Recommendation: DC arterial line. Out of bed in chair with aggressive pulmonary toilet. CBC, BMP, chest x-ray in a.m. Greatly appreciate the expertise of our hospitalist colleagues Status: Acute Attestations Medical Necessity Statement*: Postop day #1 status post left thoracotomy with evacuation of large hemothorax. Coding Level of Care Code Acute Jr. Java Developer for Chg Fwd Diagnoses Status post thoracotomy Z98.890
[2021-09-12 10:43] LABS: Iron 20 ug/dL (59-158); Percent Saturation 12.5 % (20-50); Total Iron Binding Capacity 160 mcg/dl; Unsaturated Iron Binding 140 ug/dL (112-347)
[2021-09-12] MEDS: lisinopril 10 mg Tablet PO (12:32)
--- NOTE | 2021-09-12 13:07 | PC.NURSE ---
artline removed whole intact.. pressure dressing applied assisted up in chair at this time not distress at this time
[2021-09-12 16:42] LABS: Glucose Point of Care 187 mg/dL (70-110)
--- NOTE | 2021-09-12 16:56 | P.PN_ITS ---
Subjective Subjective: Interval history: Hospital course, labs appreciated. Examination patient lying comfortably in bed. States he is feeling better. Pain is well controlled. On 3 to 4 L of oxygen supplementation saturating more than 92%. Denies any nausea, vomiting, headache. Vitals/I&O/Wt Last Vital Signs Temp 98.9 F 09/12/21 03:47 Pulse 107 H 09/12/21 16:30 Resp 11 L 09/12/21 16:30 BP 138/84 09/12/21 16:30 Pulse Ox 93 09/12/21 16:30 09/12/21 09/12/21 09/12/21 06:59 14:59 22:59 Intake Total 120 / 930 Output Total 1140 / 4460 Balance -1020 / -3530 Weight last 48 hrs Weight 104.326 kg Weight 104.326 kg Physical Exam Const: COMMON NORMALS: no acute distress and patient oriented x3 HENMT: COMMON NORMALS: normocephalic HEAD & SCALP: normocephalic Neck/C-Spine: COMMON NORMALS: no JVD Lymph: LYMPHATIC: no lymphadenopathy noted Chest: COMMONS NORMALS: normal inspection of the chest Resp: COMMON NORMALS: normal respiratory effort, No retractions and No use of accessory muscles AUSCULTATION: crackles and breath sounds absent on th left OTHER: 2 left-sided chest tubes in place, air leak present Cardio: COMMON NORMALS: no JVD, regular rate, regular rhythm, S1 normal heart sound present and S2 normal heart sound present RATE: regular rate RHYTHM: regular rhythm HEART SOUNDS: S1 normal heart sound present and S2 normal heart sound present GI: COMMON NORMALS: Normal to inspection, nondistended, normoactive bowel sounds present, Soft to palpation, non-tender, No hepatosplenomegaly present, no masses and no bruits PALPATION: Yes Soft to palpation and Yes No hepatosp lenomegaly present Extremity: COMMON NORMALS: capillary refill normal, no clubbing, cyanosis or edema, no calf tenderness and no pedal edema NARRATIVE EXTREMITY EXAM: 1+ pitting edema Neuro: COMMON NORMALS: patient oriented x3 Psych: COMMON NORMALS: mental status grossly normal Data : 09/12/21 03:30 09/12/21 03:30 Micro: Microbiology 09/08/21 13:01 Blood Culture - Preliminary Blood Corynebacterium species A&P Assessment and plan (1) Collapse of left lung: Status: Acute (2) Hemothorax on left: Status: Acute (3) COVID-19: Status: Acute (4) Pneumonia due to COVID-19 virus: Status: Acute (5) Pleural effusion: Status: Acute Plan COVID-19 pneumonia: Hypoxia secondary to COVID-19 pneumonia: Mild to moderate disease. Oxygen supplementation keeping saturation over 88%. Dexamethasone 6 mg daily. Remdesivir to finish a 5-day course. Vitamin C, zinc. DuoNeb 6-hour, budesonide twice daily Pulmonary toilet with incentive spirometry flutter valve. We will monitor inflammatory markers including D-dimer, CRP every 48 hourly. If getting elevated will dose Actemra. Patient was made aware of the same and he has given verbal consent. D-dimer elevated. CTA negative for pulmonary embolism. Given presence of pneumothorax we will hold off on anticoagulation either prophylactic or therapeutic for now. Will monitor for anemia or blood loss. Procalcitonin negative. Check sputum culture. Continue azithromycin to finish a 5-day course, ceftriaxone to finish a 7-day course. Check MRSA swab. Given hypoxia will try to keep patient as negative as possible. Echocardiogram done shows an EF of 60% with diastolic dysfunction with dilated aortic root, dilated IVC with decreased respiratory variation. Strict input output charting, daily weights. Left lung collapse, left hemothorax: Post thoracotomy. Appreciate Dr. Banuelos's recommendation and expertise. Chest tube in place. To be managed as per Dr. Banuelos. Prediabetes, hemoglobin A1c 6.1. Insulin sliding scale low-dose protocol as patient is on dexamethasone Hypertension: Goal blood pressure less than 140/90 mmHg. Restart home dose of lisinopril at 10 mg daily. Anemia: Start on oral iron supplementation. Full code. Attestations Medical Necessity Statement*: Requires further hospitalization for management of Covid pneumonia, left pneumothorax post thoracotomy, chest tube in place Time Spent in Patient Care: Greater than 35 minutes Coding Level of Care Code Acute Superintendent Marine for Elsa Lott Diagnoses Collapse of left lung J98.11 COVID-19 U07.1 Pneumonia due to COVID-19 virus U07.1; J12.82 Hemothorax on left J94.2 Pleural effusion J90
[2021-09-12] MEDS: azithromycin 500 MG in sodium chloride 0.9% 250 ML 250 MG IV (17:04)
[2021-09-12] MEDS: dexamethasone 10 mg/mL INJ 6 MG IVP (17:04)
[2021-09-12] MEDS: cefTRIAXone 1,000 MG in sodium chloride 0.9% (plus) 50 ML 100 MG IV (17:50)
[2021-09-12] MEDS: ferrous gluconate 324 mg Tablet PO (17:50)
--- NOTE | 2021-09-12 18:17 | NUR.SHIFT ---
Shift Note Frequent safety and comfort rounds continue. Patient monitored for response to intervention and treatmen up in chair today tolerated well has had adequate control pain today Patient understands plan of care and increasing activity Will continue to monitor.
[2021-09-12] MEDS: remdesivir 100 MG in sodium chloride 0.9% (100 ml) 80 ML IV (19:15)
[2021-09-12 20:27] LABS: Glucose Point of Care 394 mg/dL (70-110)
[2021-09-12] MEDS: morphine 4 mg/mL SDV 1 mL 2 MG IVP (20:31)
[2021-09-13] VITALS (55 sets, daily range): BP systolic 99–143; BP diastolic 60–88; PULSE 78–120; RESP 0–27; TEMP 36.3–37.1; O2SAT 87–97
[2021-09-13 04:20] LABS: ABG PCO2 45.5 mmHg (35-45); ABG PH Result 7.43 (7.35-7.45); Base Excess ABG 5.3 mmol/L (-2.0-2.0); Blood Gas Allen Test Pos; Blood Gas Sample Site Radial, left; Blood Gas Sample Type Arterial; HCO3 ABG 30.4 mmol/L (22-26); Oxygen Device NC; PO2 ABG 62.3 mmHg (80.0-100.0)
[2021-09-13 06:01] LABS: Glucose Point of Care 186 mg/dL (70-110)
--- NOTE | 2021-09-13 07:19 | PM.PN ---
Subjective Subjective: Interval history: Postop day #2 status post evacuation of left hemothorax. Vital signs are stable. Chest x-ray and morning lab is still pending. Chest tube output 160 cc past 24 hours. No air leak is noted. Nurses report he had an uneventful night. Vitals/I&O/Wt Last Vital Signs Temp 98.8 F 09/13/21 04:00 Pulse 92 09/13/21 05:46 Resp 24 H 09/13/21 03:30 BP 128/73 09/13/21 04:00 Pulse Ox 93 09/13/21 04:00 09/12/21 09/13/21 09/13/21 22:59 06:59 14:59 Intake Total 600 / 1050 120 / 1170 Output Total 940 / 940 620 / 1560 Balance -340 / 110 -500 / -390 Physical Exam Chest: OTHER: Surgical dressings remain in place. Chest tubes are in good position of the chest wall. Resp: OTHER: Still some decreased breath sounds in the left mid and lower lung field. Cardio: COMMON NORMALS: regular rate, regular rhythm, S1 normal heart sound present and No murmurs present (Cardio) RATE: regular rate RHYTHM: regular rhythm HEART SOUNDS: S1 normal heart sound present Extremity: COMMON NORMALS: no clubbing, cyanosis or edema Data : 09/12/21 03:30 09/12/21 03:30 Micro: Microbiology 09/12/21 11:15 MRSA Culture - Final Nose A&P Assessment and plan (1) Status post thoracotomy: Postop day #2 status post evacuation of left hemothorax. Left lower lobe pathology specimen is still pending. Plan: Out of bed in chair. We will await this morning's chest x-ray and lab review. Will leave chest tube to suction for another 24 hours then placed to waterseal, as there does not appear to be any further air leak. Greatly appreciate expertise and oversight of our hospitalist colleagues. Status: Acute Attestations Medical Necessity Statement*: Status post left thoracotomy with evacuation of large hemothorax Coding Level of Care Code Acute Collection Advisor for Chg Fwd Diagnoses Status post thoracotomy Z98.890
[2021-09-13] MEDS: ipratropium-albuterol 3 mL Neb INHALATION ×4 (07:23→19:46)
[2021-09-13] MEDS: budesonide 0.5 mg/2 mL Neb INHALATION ×2 (07:23→19:46)
[2021-09-13 07:44] LABS: Hematocrit 37.5 % (42.0-52.0); Hemoglobin 11.8 g/dL (11.7-16.6); Lymphocytes # 0.5 10^3/uL (0.8-4.8); Mean Corpuscular HGB Conc 31.5 g/dL (30.0-36.0); Mean Corpuscular Hemoglobin 31.4 pg (28.0-34.0); Mean Corpuscular Volume 99.7 fl (80-94); Mean Platelet Volume 9.7 fL (7.4-10.4); Monocytes # 0.7 10^3/uL (0.2-0.9); Monocytes % 8.5 %; Neutrophils # 6.75 10^3/uL (1.8-7.7); Neutrophils % 84.7 %; Nucleated Red Blood Cells % 0 %; Platelet Count 250 10^3/cmm (130-400); Red Blood Count 3.76 10^6/uL (4.1-5.3); Red Cell Distribution Width 13.1 % (12.1-15.1)
[2021-09-13 07:58] LABS: Glucose Point of Care 156 mg/dL (70-110)
[2021-09-13 08:13] LABS: Alanine Aminotransferase 15 U/L (0-41); Albumin Level 2.5 g/dL (3.5-5.2); Alkaline Phosphatase 68 IU/L (40-130); Blood Urea Nitrogen 24 mg/dL (8-23); C Reactive Protein 37.3 mg/L (0.0-4.9); Calcium 8.9 mg/dL (8.5-10.5); Carbon Dioxide 23 mmol/L (22-29); Chloride 107 mmol/L (98-107); Chol HDL Ratio 2.72 mg/dL (1.0-5.00); Cholesterol 68 mg/dL (0-200); Globulin 2.6 g/dL (1.3-4.6); Glucose 163 mg/dL (65-115); HDL Cholesterol 25 mg/dL (60-100); LDL Cholesterol Calculated 30 mg/dL (50-129); Magnesium 2.4 mg/dL (1.7-2.3); Osmolality Calculated 296 mOsm/kg (285-295); Phosphorus 2.2 mg/dL (2.5-4.5); Sodium 139 mmol/L (136-145); Total Bilirubin 0.3 mg/dL (0.15-1.2); Total Protein 5.1 g/dL (6.6-8.7); Triglycerides 66 mg/dL (0-150); VLDL Cholestrol Calculation 13 mg/dL (0-30)
[2021-09-13 08:14] LABS: Anion Gap 13.7 (5-19); Aspartate Amino Transferase 15 U/L (0-40); Potassium 4.7 mmol/L (3.5-5.1)
[2021-09-13] MEDS: cholecalciferol (vitamin D3) 1,000 unit Tablet 2000 UNIT PO (08:40)
[2021-09-13] MEDS: ferrous gluconate 324 mg Tablet PO ×2 (08:40→17:36)
[2021-09-13] MEDS: zinc gluconate 50 mg Tablet PO (08:40)
[2021-09-13] MEDS: ascorbic acid 500 mg Tablet PO ×2 (08:40→17:36)
[2021-09-13] MEDS: pantoprazole DR 40 mg Tablet PO (08:41)
[2021-09-13] MEDS: atorvastatin 40 mg Tablet 20 MG PO (08:41)
[2021-09-13] MEDS: NIFEdipine ER (24 hr) 30 mg Tablet 60 MG PO (08:41)
[2021-09-13] MEDS: lisinopril 10 mg Tablet PO (08:41)
--- NOTE | 2021-09-13 10:19 | PC.CHAP ---
Pastoral Care Encounter/Spiritual Assessment Type of Contact [] Declined surface grinder tender visit [] Patient/Family/Request visit [] Outpatient visit [] Follow-up visit [] Physician referral [] Code/Alert [x] Routine visit [] Staff referral [] Actively dying [] Patient sleeping [] Family support [] [] Out of room [] Palliative care [] [] Receiving care in room [] Pre-surgical visit [] Trauma [] Long length of stay [x] ICU visit [x] Other: isolated Relational/Emotional Strength [] Patient feels connected with others/family/visitors/staff [] Distress [] Loneliness/isolation [] Abandonment Spirituality of Patient [] Person of Gladys [] Attends Mandaen of their Gladys [] Believes in Prayer [] Reads Bible or Samaritan materials [] There are Spiritual issues to be addressed Sheet [employer] Interventions [x] Prayer [] Active listening [] Non-anxious presence [] Spiritual/emotional support [] Crisis/trauma care [] Spiritual counseling [] Bereavement support [] Provided bereavement packet [] Provided Bible/devotional materials [] Provided toy/stuffed animal, coloring book to patient or family member [] Provided Communion [] Anointing/Hazard [] Salvation [x] Completed spiritual assessment [] Other: Impact on Illness or Injury [] Angry [] Fearful [] Anxious [] Often cries [] Exhaustion [] Unable to work [] Unable to attend hinduism [] Unable to walk/stand [] Unable to read [] Unable to drive [] Unable to eat/drink [] Unable to sleep [] Unable to be with family [] Patient intubated [] Other: Summary Time spent with patient
--- NOTE | 2021-09-13 11:26 | PC.SOCIAL ---
IMM Update Attempted to reach patient's son to review IMM, he doesn't have cell service at this time and call was dropped; CM will follow up or await a call back.
[2021-09-13 11:48] LABS: Glucose Point of Care 176 mg/dL (70-110)
[2021-09-13] MEDS: FUROsemide 10 mg/mL SDV 2mL 20 MG IVP (11:59)
--- NOTE | 2021-09-13 11:59 | PC.NURSE ---
MAR delay related to care of multiple critical patients.
[2021-09-13] MEDS: TRAMadol 50 mg Tablet PO (13:50)
[2021-09-13] MEDS: dexamethasone 10 mg/mL INJ 6 MG IVP (14:54)
--- NOTE | 2021-09-13 15:37 | PM.PN ---
Subjective Subjective: Interval history: No events overnight. Seen sitting up in chair. Chest tube in place. No air leak present. 160 cc drained in last 24 hours. Has remained hemodynamically stable and afebrile. Currently on 3 to 4 L saturating 93%. States appetite is appropriate. Denies any nausea, vomiting, headache. States he is not a breakfast person anyways. Vitals/I&O/Wt Last Vital Signs Temp 97.3 F L 09/13/21 12:00 Pulse 106 H 09/13/21 14:00 Resp 18 09/13/21 12:00 BP 128/87 09/13/21 12:00 Pulse Ox 93 09/13/21 12:00 09/13/21 09/13/21 09/13/21 06:59 14:59 22:59 Intake Total 120 / 1170 960 / 960 Output Total 620 / 1560 330 / 330 Balance -500 / -390 630 / 630 Physical Exam Const: COMMON NORMALS: no acute distress and patient oriented x3 HENMT: COMMON NORMALS: normocephalic HEAD & SCALP: normocephalic Neck/C-Spine: COMMON NORMALS: no JVD Lymph: LYMPHATIC: no lymphadenopathy noted Chest: COMMONS NORMALS: normal inspection of the chest Resp: COMMON NORMALS: normal respiratory effort, No retractions and No use of accessory muscles AUSCULTATION: crackles and breath sounds absent on th left OTHER: 2 left-sided chest tubes in place, air leak present Cardio: COMMON NORMALS: no JVD, regular rate, regular rhythm, S1 normal heart sound present and S2 normal heart sound present RATE: regular rate RHYTHM: regular rhythm HEART SOUNDS: S1 normal heart sound present and S2 normal heart sound present GI: COMMON NORMALS: Normal to inspection, nondistended, normoactive bowel sounds present, Soft to palpation, non-tender, No hepatosplenomegaly present, no masses and no bruits PALPATION: Yes Soft to palpation and Yes No hepatosplenomegaly present Extremity: COMMON NORMALS: capillary refill normal, no clubbing, cyanosis or edema, no calf tenderness and no pedal edema NARRATIVE EXTREMITY EXAM: 1+ pitting edema Neuro: COMMON NORMALS: patient oriented x3 Psych: COMMON NORMALS: mental status grossly normal Data : 09/13/21 07:25 09/13/21 07:25 Micro: Microbiology 09/08/21 13:30 Blood Culture - Final Blood NO GROWTH AFTER 5 DAYS 09/12/21 11:15 MRSA Culture - Final Nose A&P Assessment and plan (1) Collapse of left lung: Status: Acute (2) Hemothorax on left: Status: Acute (3) COVID-19: Status: Acute (4) Pneumonia due to COVID-19 virus: Status: Acute (5) Pleural effusion: Status: Acute Plan COVID-19 pneumonia: Hypoxia secondary to COVID-19 pneumonia: Mild to moderate disease. Oxygen supplementation keeping saturation over 88%. Dexamethasone 6 mg daily. Remdesivir to finish a 5-day course. Vitamin C, zinc. DuoNeb 6-hour, budesonide twice daily Pulmonary toilet with incentive spirometry flutter valve. We will monitor inflammatory markers including D-dimer, CRP every 48 hourly. If getting elevated will dose Actemra. Patient was made aware of the same and he has given verbal consent. D-dimer elevated. CTA negative for pulmonary embolism. Given presence of pneumothorax we will hold off on anticoagulation either prophylactic or therapeutic for now. Will monitor for anemia or blood loss. Procalcitonin negative. Check sputum culture. Continue azithromycin to finish a 5-day course, ceftriaxone to finish a 7-day course. Check MRSA swab. Given hypoxia will try to keep patient as negative as possible. Echocardiogram done shows an EF of 60% with diastolic dysfunction with dilated aortic root, dilated IVC with decreased respiratory variation. Lasix 20 mg IV. Strict input output charting, daily weights. Left lung collapse, left hemothorax: Post thoracotomy. Appreciate Dr. Banuelos's recommendation and expertise. Chest tube in place. To be managed as per Dr. Banuelos. Prediabetes, hemoglobin A1c 6.1. Insulin sliding scale low-dose protocol as patient is on dexamethasone Hypertension: Goal blood pressure less than 140/90 mmHg. Restart home dose of lisinopril at 10 mg daily. Continue home dose of nifedipine. Anemia: Start on oral iron supplementation. Full code. Plan for day: Continue aggressive pulmonary toilet with incentive spirometry. Continue dexamethasone for COVID and ceftriaxone. Keep chest tube on intermittent suction. Plan to transition to waterseal tomorrow. IV Lasix 20 mg once. Can transfer to [facility]. Attestations Medical Necessity Statement*: Requires further hospitalization for management of hypoxic respiratory failure secondary COVID-19, left hemothorax post thoracotomy Time Spent in Patient Care: Greater than 35 minutes Coding Level of Care Code Acute Ornamental Iron Erector for Chg Fwd Diagnoses Collapse of left lung J98.11 Hemothorax on left J94.2 COVID-19 U07.1 Pneumonia due to COVID-19 virus U07.1; J12.82 Pleural effusion J90
[2021-09-13 17:30] LABS: Glucose Point of Care 156 mg/dL (70-110)
[2021-09-13] MEDS: cefTRIAXone 1,000 MG in sodium chloride 0.9% (plus) 50 ML 100 MG IV (17:36)
[2021-09-13] MEDS: ketorolac 30 mg/mL INJ IVP (17:43)
--- NOTE | 2021-09-13 18:41 | PC.NURSE ---
All care provided and charted by PORSHA Joel directly supervised by this nurse.
--- NOTE | 2021-09-13 19:57 | PC.NURSE ---
Shift Note Pt up out of bed twice today. First time from breakfast until after lunch. Second time at dinner. he would prefer to stay in bed. He uses IS only with prompting, reaching 250. He needed pain medication twice this shift. He is tolerating the chest tube, 105ml total output this shift. incision well -approximated, dressing change completed. Family has been in today to see him through the door and talk on the phones. Urine output adequate. Frequent safety and comfort rounds continue. Orders and/or nursing care completed as indicated. Patient monitored for response to intervention and treatment(s). Education provided includes IS use, getting out of bed, Tramadol and progress. Patient and/or business process representative verbalizes understanding of medications, ongoing plan of care and condition. Will continue to monitor.
[2021-09-13] MEDS: diphenhydrAMINE 25 mg Capsule PO (23:25)
[2021-09-14] VITALS (26 sets, daily range): BP systolic 118–155; BP diastolic 70–101; PULSE 82–120; RESP 1–36; TEMP 36.4–36.7; O2SAT 90–95
--- NOTE | 2021-09-14 06:00 | XRR_ITS ---
PROCEDURE INFORMATION: Exam: XR Chest Exam date and time: 09/14/2021 6:00 AM Age: 85 years old Clinical indication: Dyspnea; Additional info: Postop day #3 status post evacuation of hemothorax TECHNIQUE: Imaging protocol: XR of the chest. Views: 1 view. COMPARISON: CR (CHEST, ) 09/12/2021 5:32 AM FINDINGS: Lungs: Slight radiographic improvement with moderate to severe residual left-sided pneumonia and/or atelectasis. Pleural spaces: Unremarkable. No pleural effusion. No pneumothorax. Heart/Mediastinum: Unremarkable. No cardiomegaly. Bones/joints: Unremarkable. XR/XR chest 1V portable [id number] IMPRESSION: Slight radiographic improvement with moderate to severe residual left-sided pneumonia and/or atelectasis.
--- NOTE | 2021-09-14 07:09 | PM.PN ---
Subjective Subjective: Postop day #3 status post left thoracotomy and evacuation of hemothorax. Chest tube output 65 cc / 24 hours. No airleak while on suction. Chest x-ray reveals slowly improving opacifications in the left lung. Pathology from left lower lobe lung wedge resection is still pending. Vitals/I&O/Wt Last Vital Signs Temp 98.0 F 09/14/21 04:00 Pulse 104 H 09/14/21 06:00 Resp 3 L 09/14/21 05:30 BP 140/74 09/14/21 05:30 Pulse Ox 91 09/13/21 20:00 09/13/21 09/14/21 09/14/21 22:59 06:59 14:59 Intake Total 50 / 1010 Output Total 350 / 680 Balance -300 / 330 Physical Exam Neck/C-Spine: COMMON NORMALS: no JVD Chest: COMMONS NORMALS: normal inspection of the chest OTHER: Dressings are in place. Chest tubes remain in good position. Drainage is becoming more serous. No airleak. Resp: OTHER: There was some decreased breath sounds in the mid and mid lower chua on the left. Only modest use of incentive spirometry. Needs more aggressive pulmonary toilet. Cardio: COMMON NORMALS: no JVD, regular rate, regular rhythm and S1 normal heart sound present RATE: regular rate RHYTHM: regular rhythm HEART SOUNDS: S1 normal heart sound present Data : 09/13/21 07:25 09/13/21 07:25 Micro: Microbiology 09/08/21 13:30 Blood Culture - Final Blood NO GROWTH AFTER 5 DAYS A&P Assessment and plan (1) Status post thoracotomy: Postop day #3. Plan: We will transfer to medical/surgical [facility]. Continue aggressive pulmonary toilet. Chest tubes to waterseal. Chest x-ray in a.m. We will reevaluate tomorrow to consider potential for removing chest tubes. Greatly appreciate the expertise and oversight of our hospitalist colleagues. Status: Acute Attestations Medical Necessity Statement*: 3 days status post left thoracotomy with evacuation of large hemothorax. Coding Level of Care Code Acute Events And Promotions Assistant for Chg Fwd Diagnoses Status post thoracotomy Z98.890
--- NOTE | 2021-09-14 07:34 | PC.NURSE ---
Shift Note Frequent safety and comfort rounds continue. Orders and/or nursing care completed as indicated. Patient monitored for response to intervention and treatment(s). Education provided includes treatment plan. Patient verbalized understanding of teaching. Patient had an uneventful shift, slept throughout the night. No complaints of pain at this time. Mauricio catheter drained 725 mls of urine overnight. Will continue to monitor.
[2021-09-14] MEDS: ferrous gluconate 324 mg Tablet PO ×2 (07:51→17:47)
[2021-09-14] MEDS: lisinopril 10 mg Tablet PO (07:52)
[2021-09-14] MEDS: oxyCODONE-APAP 10-325 mg Tablet 1 TAB PO (07:52)
[2021-09-14] MEDS: atorvastatin 40 mg Tablet 20 MG PO (07:52)
[2021-09-14] MEDS: NIFEdipine ER (24 hr) 30 mg Tablet 60 MG PO (07:53)
[2021-09-14] MEDS: pantoprazole DR 40 mg Tablet PO (07:53)
[2021-09-14] MEDS: cholecalciferol (vitamin D3) 1,000 unit Tablet 2000 UNIT PO (07:54)
[2021-09-14] MEDS: zinc gluconate 50 mg Tablet PO (07:54)
[2021-09-14] MEDS: ascorbic acid 500 mg Tablet PO ×2 (07:54→17:47)
--- NOTE | 2021-09-14 07:54 | PC.NURSE ---
MAR other delay related to impending transfer to CSU, am Po meds admin early for better continuity of care.
[2021-09-14 08:07] LABS: Glucose Point of Care 216 mg/dL (70-110)
[2021-09-14 08:21] LABS: Basophils % 0.1 %; Hemoglobin 11.7 g/dL (11.7-16.6); Lymphocytes # 0.6 10^3/uL (0.8-4.8); Lymphocytes % 6.5 %; Mean Corpuscular HGB Conc 31.6 g/dL (30.0-36.0); Mean Corpuscular Hemoglobin 30.6 pg (28.0-34.0); Mean Corpuscular Volume 96.9 fl (80-94); Mean Platelet Volume 9.9 fL (7.4-10.4); Monocytes # 0.7 10^3/uL (0.2-0.9); Neutrophils # 7.55 10^3/uL (1.8-7.7); Neutrophils % 84.4 %; Nucleated Red Blood Cells % 0 %; Platelet Count 321 10^3/cmm (130-400); Red Blood Count 3.82 10^6/uL (4.1-5.3); Red Cell Distribution Width 12.9 % (12.1-15.1)
[2021-09-14 08:56] LABS: Alanine Aminotransferase 14 U/L (0-41); Albumin Level 2.9 g/dL (3.5-5.2); Alkaline Phosphatase 78 IU/L (40-130); Anion Gap 11.8 (5-19); Aspartate Amino Transferase 13 U/L (0-40); Blood Urea Nitrogen 25 mg/dL (8-23); C Reactive Protein 15.9 mg/L (0.0-4.9); Calcium 8.4 mg/dL (8.5-10.5); Carbon Dioxide 27 mmol/L (22-29); Chloride 99 mmol/L (98-107); Globulin 2.3 g/dL (1.3-4.6); Glucose 186 mg/dL (65-115); Magnesium 2.3 mg/dL (1.7-2.3); Osmolality Calculated 287 mOsm/kg (285-295); Phosphorus 2.8 mg/dL (2.5-4.5); Potassium 3.8 mmol/L (3.5-5.1); Sodium 134 mmol/L (136-145); Total Bilirubin 0.4 mg/dL (0.15-1.2); Total Protein 5.2 g/dL (6.6-8.7)
[2021-09-14] MEDS: ipratropium-albuterol 3 mL Neb INHALATION (09:14)
[2021-09-14] MEDS: budesonide 0.5 mg/2 mL Neb INHALATION (09:14)
--- NOTE | 2021-09-14 09:43 | ECG_ITS ---
[facility] Test Date: 2021-09-14 Pat Name: Harrison Dickens Department: Room: 106 Gender: Male Personal Development Educator: : [id number] Requested By: Cisco Davila Order Number: [id number] Col[place] MD: Ervin Coughlin M.D. Measurements Intervals [place] Rate: 105 P: 4 NH: 144 QRS: -30 QRSD: 103 T: 53 QT: 335 QTc: 443 Interpretive Statements SINUS TACHYCARDIA BORDERLINE LEFT AXIS DEVIATION [QRS AXIS < -20] NONSPECIFIC T-WAVE ABNORMALITY Compared to ECG 09/11/2021 05:59:30 Sinus rhythm no longer present T-wave abnormality still present Electronically Signed On 09-14-2021 17:10:13 SLABBER LIGHT by Ervin Coughlin M.D. [id number]
--- NOTE | 2021-09-14 10:24 | PC.NURSE ---
Report called to Stacia LOWE in [facility] @ [phone] for transfer of care. Patient transferred to room 106 with all of his belongings.
[2021-09-14] MEDS: metoprolol tartrate 25 mg Tablet PO ×2 (11:30→20:55)
[2021-09-14 11:54] LABS: Glucose Point of Care 212 mg/dL (70-110)
[2021-09-14] MEDS: enoxaparin 40 mg/0.4 mL Syringe SUBCUT (12:19)
--- NOTE | 2021-09-14 14:29 | P.PN_ITS ---
Subjective Subjective: No acute vents overnight. Patient has remained hemodynamically stable. Today morning transitioned over to CSU. Seen multiple times during the day. 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 When seen again in the afternoon laying comfortably in bed. Awake alert. Denies any nausea, vomiting, headache. Still having bouts of cough. Chest tube placed on waterseal today morning as per Dr. Banuelos. 65 cc output in last 24 hours. No air leak while on suction. Vitals/I&O/Wt Last Vital Signs Temp 97.6 F 09/14/21 07:30 Pulse 120 H 09/14/21 09:24 Resp 18 09/14/21 09:15 BP 154/88 09/14/21 07:30 Pulse Ox 90 09/14/21 09:15 09/13/21 09/14/21 09/14/21 22:59 06:59 14:59 Intake Total 50 / 1010 Output Total 550 / 880 Balance -500 / 130 Physical Exam Const: COMMON NORMALS: no acute distress and patient oriented x3 HENMT: COMMON NORMALS: normocephalic HEAD & SCALP: normocephalic Neck/C-Spine: COMMON NORMALS: no JVD Lymph: LYMPHATIC: no lymphadenopathy noted Chest: COMMONS NORMALS: normal inspection of the chest Resp: COMMON NORMALS: normal respiratory effort, No retractions and No use of accessory muscles AUSCULTATION: crackles and breath sounds absent on th left OTHER: 2 left-sided chest tubes in place, air leak present Cardio: COMMON NORMALS: no JVD, regular rate, regular rhythm, S1 normal heart sound present and S2 normal heart sound present RATE: regular rate RHYTHM: regular rhythm HEART SOUNDS: S1 normal heart sound present and S2 normal heart sound present GI: COMMON NORMALS: Normal to inspection, nondistended, normoactive bowel sounds present, Soft to palpation, non-tender, No hepatosplenomegaly present, no masses and no bruits PALPATION: Yes Soft to palpation and Yes No hepatosplenomegaly present Extremity: COMMON NORMALS: capillary refill normal, no clubbing, cyanosis or edema, no calf tenderness and no pedal edema NARRATIVE EXTREMITY EXAM: 1+ pitting edema Neuro: COMMON NORMALS: patient oriented x3 Psych: COMMON NORMALS: mental status grossly normal Data : 09/14/21 07:40 09/14/21 07:40 Micro: Microbiology 09/08/21 13:01 Blood Culture - Final Blood Corynebacterium species 09/08/21 13:30 Blood Culture - Final Blood NO GROWTH AFTER 5 DAYS A&P Assessment and plan (1) Collapse of left lung: Status: Acute (2) Hemothorax on left: Status: Acute (3) COVID-19: Status: Acute (4) Pneumonia due to COVID-19 virus: Status: Acute (5) Pleural effusion: Status: Acute Plan Hypoxia secondary to COVID-19 pneumonia: Mild to moderate disease. Oxygen supplementation keeping saturation over 88%. Dexamethasone 6 mg daily. Remdesivir to finish a 5-day course. Vitamin C, zinc. Switch to Advair, Spiriva. Pulmonary toilet with incentive spirometry flutter valve. We will monitor inflammatory markers including D-dimer, CRP every 48 hourly. If getting elevated will dose Actemra. Patient was made aware of the same and he has given verbal consent. D-dimer elevated. CTA negative for pulmonary embolism. Given presence of pneumothorax we will hold off on anticoagulation either prophylactic or therapeutic for now. Will monitor for anemia or blood loss. Procalcitonin negative. Sputum culture pending, MRSA swab negative. Finished course of azithromycin. Continue ceftriaxone to finish a 7-day course. Last dose on 09/15. Given hypoxia will try to keep patient as negative as possible. Echocardiogram done shows an EF of 60% with diastolic dysfunction with dilated aortic root, dilated IVC with decreased respiratory variation. Hold off on any further diuresis. Euvolemic. Strict input output charting, daily weights. Left lung collapse, left hemothorax: Post thoracotomy. Appreciate Dr. Banuelos's recommendation and expertise. Chest tube in place. No air leaks. On waterseal. If continues to be okay plan to remove within next 24 to 36 hours. To be managed as per Dr. Banuelos. Prediabetes, hemoglobin A1c 6.1. Insulin sliding scale low-dose protocol as patient is on dexamethasone Hypertension: Goal blood pressure less than 140/90 mmHg. Restart home dose of lisinopril at 10 mg daily. Continue home dose of nifedipine. Having mild tachycardia. Blood pressure mildly elevated. Add metoprolol 25 mg twice daily. Anemia: Start on oral iron supplementation. Full code. Plan for day: Add metoprolol 25 mg twice daily. Aggressive pulmonary toilet. Chest tube put on waterseal. Add Tessalon Perles. Out of bed to chair. Physical therapy eval. Discharge plan: If continues to do well can plan to discharge within next 24 to 48 hours. Discussed in detail with son. Plan to discharge home with sons. Attestations Medical Necessity Statement*: Requires further hospitalization for management of hypoxia secondary COVID-19 pneumonia, left hemothorax post thoracotomy Time Spent in Patient Care: Greater than 35 minutes Coding Level of Care Code Acute Planer Chain Offbearer for g Fwd Diagnoses Collapse of left lung J98.11 Hemothorax on left J94.2 COVID-19 U07.1 Pneumonia due to COVID-19 virus U07.1; J12.82 Pleural effusion J90
[2021-09-14 14:36] LABS: SARS Covid-2 Antigen Negative (Negative)
[2021-09-14 17:34] LABS: Glucose Point of Care 172 mg/dL (70-110)
[2021-09-14] MEDS: cefTRIAXone 1,000 MG in sodium chloride 0.9% (plus) 50 ML 100 MG IV (17:37)
[2021-09-14] MEDS: benzonatate 100 mg Capsule 200 MG PO ×2 (17:39→20:55)
[2021-09-14] MEDS: dexamethasone 10 mg/mL INJ 6 MG IVP (17:40)
[2021-09-14] MEDS: insulin lispro 100 unit/1 mL SUBCUT ×2 (17:46→20:55)
[2021-09-14 20:25] LABS: Glucose Point of Care 159 mg/dL (70-110)
[2021-09-15] VITALS (77 sets, daily range): BP systolic 89–144; BP diastolic 53–78; PULSE 68–98; RESP 6–36; TEMP 36.2–36.5; O2SAT 91–96; BMI 30.8
[2021-09-15 04:11] LABS: Basophils % 0.1 %; Hematocrit 36.6 % (42.0-52.0); Hemoglobin 11.8 g/dL (11.7-16.6); Lymphocytes # 0.6 10^3/uL (0.8-4.8); Lymphocytes % 6.1 %; Mean Corpuscular HGB Conc 32.2 g/dL (30.0-36.0); Mean Corpuscular Hemoglobin 30.3 pg (28.0-34.0); Mean Corpuscular Volume 94.1 fl (80-94); Mean Platelet Volume 9.8 fL (7.4-10.4); Monocytes # 0.5 10^3/uL (0.2-0.9); Monocytes % 5.4 %; Neutrophils # 8.56 10^3/uL (1.8-7.7); Neutrophils % 87.2 %; Nucleated Red Blood Cells % 0 %; Platelet Count 355 10^3/cmm (130-400); Red Blood Count 3.89 10^6/uL (4.1-5.3); Red Cell Distribution Width 12.9 % (12.1-15.1); White Blood Count 9.8 10^3/uL (4.0-10.0)
[2021-09-15 04:27] LABS: LAB Peripheral Smear Sent for Review
[2021-09-15 04:41] LABS: Alanine Aminotransferase 13 U/L (0-41); Albumin Level 3.1 g/dL (3.5-5.2); Alkaline Phosphatase 76 IU/L (40-130); Anion Gap 13.6 (5-19); Aspartate Amino Transferase 12 U/L (0-40); Blood Urea Nitrogen 29 mg/dL (8-23); Calcium 9.3 mg/dL (8.5-10.5); Carbon Dioxide 25 mmol/L (22-29); Chloride 100 mmol/L (98-107); Globulin 2.2 g/dL (1.3-4.6); Glucose 170 mg/dL (65-115); Osmolality Calculated 288 mOsm/kg (285-295); Potassium 4.6 mmol/L (3.5-5.1); Sodium 134 mmol/L (136-145); Total Bilirubin 0.5 mg/dL (0.15-1.2); Total Protein 5.3 g/dL (6.6-8.7)
--- NOTE | 2021-09-15 06:00 | XR_ITS ---
WS: [id number] XR chest 1V portable [id number] REASON FOR EXAM: chest tubes to water seal FINDINGS: The 2 left chest tubes are unchanged in position. Compared to the examination of 09/14/2021, an area of atelectasis has developed in the left lower lung field. No pneumothorax is identified. The diffuse left lung opacities show a minimal degree of improvement. Right lung remains clear. XR/XR chest 1V portable [id number] IMPRESSION: New atelectasis in the left lung. Left lung opacities likely clearing.
--- NOTE | 2021-09-15 07:34 | PM.PN ---
Subjective Subjective: Postop day #4 status post left thoracotomy and evacuation of hemothorax. Chest tube output reported over the past 24 hours is less than 100 cc. No airleak. On waterseal. Chest x-ray reveals slow clearing of remaining opacities in the left lung. Vital signs are stable. 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 Vitals/I&O/Wt Last Vital Signs Temp 97.7 F 09/15/21 04:00 Pulse 83 09/15/21 06:00 Resp 32 H 09/15/21 04:00 BP 144/72 09/15/21 04:00 Pulse Ox 94 09/15/21 04:00 09/14/21 09/15/21 09/15/21 22:59 06:59 14:59 Intake Total 50 / 50 150 / 200 Output Total 630 / 630 Balance 50 / 50 -480 / -430 Weight last 48 hrs Weight 227 lb 6 oz Physical Exam Chest: COMMONS NORMALS: normal inspection of the chest OTHER: Chest tubes remain in good position. Dressings in place. Resp: OTHER: Modest decrease in breath sounds on the left though this has been slowly improving. He has only modest use of incentive spirometry. Data : 09/15/21 03:59 09/15/21 03:59 Micro: Microbiology 09/08/21 13:01 Blood Culture - Final Blood Corynebacterium species A&P Assessment and plan (1) Status post thoracotomy: Postop day #4. Decreasing chest tube output. No airleak. Plan: I will plan to remove drains today. Status: Acute Attestations Medical Necessity Statement*: Postop day #4 status post left thoracotomy and evacuation of hemothorax. Coding Level of Care Code Acute Supervisor Body Assembly for Chg Fwd Diagnoses Status post thoracotomy Z98.890
[2021-09-15] MEDS: enoxaparin 40 mg/0.4 mL Syringe SUBCUT (08:11)
[2021-09-15] MEDS: insulin lispro 100 unit/1 mL SUBCUT ×2 (08:11→12:45)
[2021-09-15] MEDS: NIFEdipine ER (24 hr) 30 mg Tablet 60 MG PO (08:12)
[2021-09-15] MEDS: lisinopril 10 mg Tablet PO (08:12)
[2021-09-15] MEDS: ferrous gluconate 324 mg Tablet PO (08:12)
[2021-09-15] MEDS: cholecalciferol (vitamin D3) 1,000 unit Tablet 2000 UNIT PO (08:12)
[2021-09-15] MEDS: atorvastatin 40 mg Tablet 20 MG PO (08:13)
[2021-09-15] MEDS: pantoprazole DR 40 mg Tablet PO (08:13)
[2021-09-15] MEDS: ascorbic acid 500 mg Tablet PO (08:13)
[2021-09-15] MEDS: metoprolol tartrate 25 mg Tablet PO ×2 (08:13→20:16)
[2021-09-15] MEDS: benzonatate 100 mg Capsule 200 MG PO ×2 (08:14→20:16)
[2021-09-15] MEDS: zinc gluconate 50 mg Tablet PO (08:16)
--- NOTE | 2021-09-15 10:34 | PC.SOCIAL ---
IMM Update Pg. 2 of IMM updated and reviewed with patient's son, Leo, over the phone, who verbalized understanding.
--- NOTE | 2021-09-15 11:26 | P.PN_ITS ---
Subjective Subjective: No acute events overnight. Has remained hemodynamically stable and afebrile. Heart rate better controlled. Continues to remain on 3 L saturating more than 92%. Chest tube has been on waterseal since yesterday. Chest tube drain left in 100. Plan as per cardiothoracic surgery is to remove chest tube today. Vitals/I&O/Wt Last Vital Signs Temp 97.7 F 09/15/21 04:00 Pulse 85 09/15/21 07:53 Resp 17 09/15/21 07:49 BP 144/72 09/15/21 04:00 Pulse Ox 95 09/15/21 07:49 09/14/21 09/15/21 09/15/21 22:59 06:59 14:59 Intake Total 50 / 50 150 / 200 Output Total 630 / 630 Balance 50 / 50 -480 / -430 Weight last 48 hrs Weight 103.136 kg Physical Exam Const: COMMON NORMALS: no acute distress and patient oriented x3 HENMT: COMMON NORMALS: normocephalic HEAD & SCALP: normocephalic Neck/C-Spine: COMMON NORMALS: no JVD Lymph: LYMPHATIC: no lymphadenopathy noted Chest: COMMONS NORMALS: normal inspection of the chest Resp: COMMON NORMALS: normal respiratory effort, No retractions and No use of accessory muscles AUSCULTATION: crackles and breath sounds absent on th left OTHER: 2 left-sided chest tubes in place, air leak present Cardio: COMMON NORMALS: no JVD, regular rate, regular rhythm, S1 normal heart sound present and S2 normal heart sound present RATE: regular rate RHYTHM: regular rhythm HEART SOUNDS: S1 normal heart sound present and S2 normal heart sound present GI: COMMON NORMALS: Normal to inspection, nondistended, normoactive bowel sounds present, Soft to palpation, non-tender, No hepatosplenomegaly present, no masses and no bruits PALPATION: Yes Soft to palpation and Yes No he patosplenomegaly present Extremity: COMMON NORMALS: capillary refill normal, no clubbing, cyanosis or edema, no calf tenderness and no pedal edema NARRATIVE EXTREMITY EXAM: 1+ pitting edema Neuro: COMMON NORMALS: patient oriented x3 Psych: COMMON NORMALS: mental status grossly normal Data : 09/15/21 03:59 09/15/21 03:59 Micro: Microbiology 09/08/21 13:01 Blood Culture - Final Blood Corynebacterium species A&P Assessment and plan (1) Collapse of left lung: Status: Acute (2) Hemothorax on left: Status: Acute (3) COVID-19: Status: Acute (4) Pneumonia due to COVID-19 virus: Status: Acute (5) Pleural effusion: Status: Acute Plan Hypoxia secondary to COVID-19 pneumonia: Mild to moderate disease. Oxygen supplementation keeping saturation over 88%. Dexamethasone 6 mg daily. Finished course for remdesivir. Vitamin C, zinc. 20 Switch to Advair, Spiriva. Pulmonary toilet with incentive spirometry flutter valve. We will monitor inflammatory markers including D-dimer, CRP every 48 hourly. If getting elevated will dose Actemra. Patient was made aware of the same and he has given verbal consent. D-dimer elevated. CTA negative for pulmonary embolism. Given presence of pneumothorax we will hold off on anticoagulation either prophylactic or therapeutic for now. Will monitor for anemia or blood loss. Procalcitonin negative. Sputum culture pending, MRSA swab negative. Finished course of azithromycin. Continue ceftriaxone to finish a 7-day course. Last dose on 09/15. Given hypoxia will try to keep patient as negative as possible. Echocardiogram done shows an EF of 60% with diastolic dysfunction with dilated aortic root, dilated IVC with decreased respiratory variation. Hold off on any further diuresis. Euvolemic. Strict input output charting, daily weights. Left lung collapse, left hemothorax: Post thoracotomy. Appreciate Dr. Banuelos's recommendation and expertise. Chest tube in place. No air leaks. On waterseal. If continues to be okay plan to remove within next 24 to 36 hours. To be managed as per Dr. Banuelos. Biopsy from thoracotomy concerning for possible multiple myeloma versus amylodosis. Prediabetes, hemoglobin A1c 6.1. Insulin sliding scale low-dose protocol as patient is on dexamethasone Hypertension: Goal blood pressure less than 140/90 mmHg. Restart home dose of lisinopril at 10 mg daily. Continue home dose of nifedipine. Having mild tachycardia. Blood pressure mildly elevated. Add metoprolol 25 mg twice daily. Anemia: Start on oral iron supplementation. Full code. Plan for day: Aggressive pulmonary toilet, continue with metoprolol. Remove chest tube today. Continue with Madhuri Bender. Out of bed to chair, physical therapy. Continue with Advair and Spiriva. Blood work today morning sent for possible multiple myeloma versus amyloidosis. Free light chain, SPEP awaited. Discharge plan: If continues to do well can plan to discharge within next 24 to 48 hours. Discussed in detail with son. Plan to discharge home with sons. Attestations Medical Necessity Statement*: Requires further hospitalization for management of hypoxia secondary to COVID-19 pneumonia, left pneumothorax post thoracotomy while chest tubes are to be removed today Time Spent in Patient Care: Greater than 35 minutes Coding Level of Care Code Acute Senior Technical Project Manager for Chg Fwd Diagnoses Collapse of left lung J98.11 Hemothorax on left J94.2 COVID-19 U07.1 Pneumonia due to COVID-19 virus U07.1; J12.82 Pleural effusion J90
[2021-09-15 12:20] LABS: Glucose Point of Care 144 mg/dL (70-110)
[2021-09-15] MEDS: morphine 4 mg/mL SDV 1 mL IVP (17:04)
--- NOTE | 2021-09-15 17:04 | PM.PN ---
Subjective Subjective: Has had uneventful day. No chest tube output. During plan chest tube removal, the posterior chest tube cannot be dislodged successfully. This was despite substantial axial traction. Vitals/I&O/Wt Last Vital Signs Temp 97.7 F 09/15/21 04:00 Pulse 85 09/15/21 07:53 Resp 17 09/15/21 07:49 BP 144/72 09/15/21 04:00 Pulse Ox 95 09/15/21 07:49 09/15/21 09/15/21 09/15/21 06:59 14:59 22:59 Intake Total 150 / 200 Output Total 630 / 630 350 / 350 Balance -480 / -430 -350 / -350 Weight last 48 hrs Weight 227 lb 6 oz Physical Exam Chest: OTHER: Incision line is clean, dry, and intact. Chest wall is stable. Anterior chest tube removed without difficulties. Posterior chest tube appears lodged, and I suspect is related to a fascial suture. Despite substantial axial traction with morphine and Toradol given IV, there was substantial discomfort. I will return the operating room for anesthesia management for pain while we proceed with chest tube removal in the appropriate setting for exploration should the chest tube fracture. Data : 09/15/21 03:59 09/15/21 03:59 Micro: Microbiology 09/08/21 13:01 Blood Culture - Final Blood Corynebacterium species A&P Assessment and plan (1) Status post thoracotomy: Postop day #4 status post evacuation of large left hemothorax. Posterior chest tube lodged and cannot be removed at bedside. Plan: We will proceed to the operating room for appropriate anesthesia management of pain while we continue with chest tube removal and exploration if needed should the chest tube fracture. Mr. Langley states understanding and is in agreement.. Status: Acute Attestations Medical Necessity Statement*: Postop day #4 status post evacuation of large left hemothorax. Posterior chest tube lodged. Coding Level of Care Code Acute Air Traffic Control Manager for Chg Fwd Diagnoses Status post thoracotomy Z98.890
[2021-09-15 17:29] LABS: Glucose Point of Care 154 mg/dL (70-110)
--- NOTE | 2021-09-15 17:33 | P.ANESASSM_ITS ---
Pre-Anesthetic Assessment Height/Weight: Height 1.83 m Weight 103.136 kg Temp Pulse Resp BP Pulse Ox 97.7 F 85 16 144/72 92 09/15/21 04:00 09/15/21 07:53 09/15/21 17:04 09/15/21 04:00 09/15/21 17:04 Operation Date: 09/11/21 07:00 Proposed Procedures p Thoracotomy(Left) - Harrison Banuelos MD s Bronchoscopy(Left) - Harrison Banuelos MD s Possible Pleurodesis(Left) - Harrison Banuelos MD s Possible VATS, possible decortication(Left) - Harrison Banuelos MD Operation Date: 09/15/21 17:40 Proposed Procedures p Chest Tube Insertion(Not Applicable) - Harrison Banuelos MD Familial anesthetic complications: None Was Beta Hernandez taken within 24 hours: N/A Social No alcohol and No tobacco Exam oriented x 3 and regular rate & rhythm Airway Submandibular: within normal limits Cervical ROM: within normal limits Dentition: chipped Pulmonary s/p Thoracotomy, difficulty with CT removal, +COVID CV/HEM Hypertension Metabolic Hyperlipidemia and Morbid Obesity Anesthetic Plan ASA status: 3E Anesthesia: MAC Medications/Allergies Home Medications Medication Instructions Recorded Confirmed Last Taken Type cholecalciferol (vitamin D3) 50 50 mcg PO DAILY 09/08/21 09/08/21 Unknown History mcg (2,000 unit) capsule (Vitamin D3) lisinopril 20 mg tablet 10 mg PO DAILY 09/08/21 09/08/21 Unknown History nifedipine 60 mg tablet,extended 60 mg PO DAILY 09/08/21 09/08/21 Unknown Hist ory release 24 hr pravastatin 40 mg tablet 40 mg PO DAILY 09/08/21 09/08/21 Unknown History Allergies Allergy/AdvReac Type Severity Reaction Status Date / Time No Known Allergies Allergy Unverified 09/08/21 14:32 Current Medications Generic Name Dose Route Start Last Admin Trade Name Freq PRN Reason Stop Dose Admin Ascorbic Acid 500 mg 09/08/21 18:00 09/15/21 08:13 Ascorbic Acid 500 Mg Tablet PO 500 mg BID PRISCILA Administration Atorvastatin Calcium 20 mg 09/09/21 09:00 09/15/21 08:13 Atorvastatin 40 Mg Tablet PO 20 mg DAILY PIRSCILA Administration Benzonatate 200 mg 09/14/21 15:00 09/15/21 08:14 Benzonatate 100 Mg Capsule PO 200 mg TID PRISCILA Administration Dexamethasone 6 mg 09/08/21 15:29 09/14/21 17:40 Dexamethasone 10 Mg/Ml Inj IVP 6 mg Q24H PRISCILA Administration Diphenhydramine HCl 25 mg 09/11/21 10:01 09/13/21 23:25 Diphenhydramine 25 Mg Capsule PO 25 mg BEDTIME PRN Administration SLEEP Enoxaparin Sodium 40 mg 09/14/21 09:45 09/15/21 08:11 Enoxaparin 40 Mg/0.4 Ml Syringe SUBCUT 40 mg Q24H PRISCILA Administration Ferrous Gluconate 324 mg 09/12/21 18:00 09/15/21 08:12 Ferrous Gluconate 324 Mg Tablet PO 324 mg BIDWM PRISCILA Administration Insulin Human Lispro 0 unit 09/14/21 18:00 09/15/21 12:45 Insulin Lispro 100 Unit/1 Ml SUBCUT 2 unit WM&BEDTIME PRISCILA Administration Protocol Ketorolac Tromethamine 30 mg 09/11/21 10:01 09/13/21 17:43 Ketorolac 30 Mg/Ml Inj IVP 09/16/21 10:00 30 mg Q6H PRN Administration MODERATE PAIN Lisinopril 10 mg 09/12/21 10:10 09/15/21 08:12 Lisinopril 10 Mg Tablet PO 10 mg DAILY PRISCILA Administration Metoprolol Tartrate 25 mg 09/14/21 11:48 09/15/21 08:13 Metoprolol Tartrate 25 Mg Tablet PO 25 mg BID@0900,2100 PRISCILA Administration Nifedipine 60 mg 09/09/21 09:00 09/15/21 08:12 Nifedipine Er (24 Hr) 30 Mg Tablet PO 60 mg DAILY PRISCILA Administration Oxycodone/Acetaminophen 1 tab 09/11/21 10:01 09/14/21 07:52 Oxycodone-Apap 10-325 Mg Tablet PO 1 tab Q4H PRN Administration MODERATE PAIN Pantoprazole Sodium 40 mg 09/12/21 09:00 09/15/21 08:[address] 40 Mg Tablet PO 40 mg DAILY PRISCILA Administration Fluticasone/Salmeterol 1 puff 09/14/21 20:00 09/15/21 07:49 Fluticasone-Salmeterol 250-50 Diskus INHALATION 1 puff BID.RESPIRATORY PRISCILA Administration Tiotropium [place] 18 mcg 02/08/22 14:30 09/15/21 07:49 Tiotropium 18 Mcg Mdi INHALATION 1 puff DAILY.RESPIRATORY PRISCILA Administration Tramadol HCl 50 mg 09/11/21 10:01 09/13/21 13:50 Tramadol 50 Mg Tablet PO 50 mg Q6H PRN Administration MODERATE PAIN Vitamin D 2,000 unit 09/09/21 09:00 09/15/21 08:12 Cholecalciferol (Vitamin D3) 1,000 Unit Tablet PO 2,000 unit DAILY PRISCILA Administration Zinc Gluconate 50 mg 09/09/21 09:00 09/15/21 08:16 Zinc Gluconate 50 Mg Tablet PO 50 mg DAILY PRISCILA Administration PFSH Anesthesia Medical History HTN (hypertension) Hyperlipidemia Surgical History No pertinent past surgical history Social History Smoking and tobacco status: never smoked Alcohol intake: never Data Anesthesia : 09/15/21 03:59 09/15/21 03:59 Short CBC 09/14/21 09/15/21 Range/Units 07:40 03:59 WBC 9.0 9.8 (4.0-10.0) 10^3/uL Hgb 11.7 11.8 (11.7-16.6) g/dL Hct 37.0 L 36.6 L (42.0-52.0) % MCV 96.9 H 94.1 H (80-94) fl Plt Count 321 355 (130-400) 10^3/cmm Neut % (Auto) 84.4 87.2 % Neut # (Auto) 7.55 8.56 H (1.8-7.7) 10^3/uL BMP 09/14/21 09/15/21 07:40 03:59 Sodium 134 L 134 L Potassium 3.8 4.6 Chloride 99 100 Carbon Dioxide 27 25 BUN 25 H 29 H Creatinine 0.7 0.8 Glucose 186 H 170 H Calcium 8.4 L 9.3 Liver Function 09/14/21 09/15/21 Range/Units 07:40 03:59 Total Bilirubin 0.4 0.5 (0.15-1.2) mg/dL AST 13 12 (0-40) U/L ALT 14 13 (0-41) U/L Alkaline Phosphatase 78 76 (40-130) IU/L Albumin 2.9 L 3.1 L (3.5-5.2) g/dL COVID Results 09/14/21 14:00 SARS-CoV-2 Ag (Rapid) Negative Coags 09/14/21 07:40 C-Reactive Protein 15.9 H Microbiology 09/08/21 13:01 Blood Culture - Final Blood Corynebacterium species Cardiac Studies: Echocardiogram 09/10/21
--- NOTE | 2021-09-15 17:40 | PC.NURSE ---
dr fernandes successfully removed anterior left chest tube in room.attempted to remove left posterior chest tube.decision made to remove tube with anesthesia in pacu for pain control.taken to pacu via bed at 1735.
--- NOTE | 2021-09-15 17:58 | XR_ITS ---
WS: [id number] XR chest 1V portable [id number] REASON FOR EXAM: removal of chest tube in or FINDINGS: Left chest tubes have been removed. Left lung remains inflated. Patchy opacities remain in the left lung but continued to improve compared to recent examinations. Only a portion of the right lung is included on this examination and no significant abnormality is se en. XR/XR chest 1V portable [id number] IMPRESSION: Left chest tubes removed. Left lung remains inflated. Residual left lung opacities.
--- NOTE | 2021-09-15 18:19 | P.OP_ITS ---
Operative Report Date of procedure: September 15, 2021 Pre-op diagnosis: Post thoracotomy and evacuation of hemothorax, lodged pleural tube Procedure done: Dislodgment removal intact of left pleural tube with axial traction Specimens removed/disposition: Left chest tube removed intact Pathology: none sent Surgeon: Harrison Banuelos Anesthesia: MAC Brief History: Mr. Dickens is an 85-year-old gentleman who is 4 days status post left thoracotomy and evacuation of large left pneumothorax. Chest tube output is slowly decreased and chest tube removal was planned today. His anterior tube was removed easily at bedside however, his posterior tube could not be dislodged catalino pite substantial traction. This caused marked discomfort, therefore I elected continued attempt to chest tube removal in the operating room theater with anesthesia conscious sedation and monitoring. Rationale was carefully discussed with Mr. Dickens. Appropriate consents were reviewed and signed. Procedure: Mr. Dickens was taken the operating room theater carefully position 45 degrees to the right side over protective padding. He was secured in position. He underwent IV conscious sedation anesthesia monitoring. His lower lateral left chest was sterilely prepped and draped. The previous anterior pleural tube had been removed without difficulty and this chest tube site closed. Axial traction was placed on the remaining more posterior tube. Utilizing a [place] clamp to assist with axial traction, the chest tube became dislodged and removed intact. Upon inspection, it could be visualized where there has been a suture through a small portion of the tube in the mid distal one third. The tube was carefully inspected and was noted to be intact and in full length. Chest tube site was closed. Sterile dressing was applied. Mr. Dickens was returned to the supine position. Intraoperative chest x-ray revealed good lung expansion, no pneumothorax, and no evidence for retained foreign bodies. He was then taken to postoperative care unit for convalescence and then to be returned to the cardiac stepdown unit. He was stable throughout the procedure.
--- NOTE | 2021-09-15 18:23 | ANE.PACU2 ---
Inpatient post-anesthesia follow up: Airway intact: Yes Vital signs: Temperature 97.7 F Pulse Rate 85 Respiratory Rate 16 Blood Pressure 144/72 Pulse Oximetry 92 Oxygen Delivery Me thod Nasal Cannula Oxygen Flow Rate 6 Fraction of Inspir ed Oxygen 4 Hydration adequate: Yes Nausea and vomiting: No Pain level: 2 Mental status: Baseline
--- NOTE | 2021-09-15 19:21 | PC.NURSE ---
return from pacu at 1850.report received.pt is sleeping.vss.left lateral chest drsg is dry and intact.sr on monitor.o2 on at 3 l/nc.o2 sat 93%
[2021-09-15] MEDS: dexamethasone 10 mg/mL INJ 6 MG IVP (19:27)
--- NOTE | 2021-09-15 19:33 | PC.NURSE ---
Received report from MYNOR Palomo. Patient resting in bed. Patient is recently from PACU post chest tube removal. Patient resting with eyes closed. Responds spontaneously with verbal stimuli. Patient does not want food at this time. Patient denies pain or other needs. No distress observed. Will continue to monitor.
[2021-09-15 20:09] LABS: Glucose Point of Care 139 mg/dL (70-110)
[2021-09-16] VITALS (17 sets, daily range): BP systolic 103–142; BP diastolic 51–72; PULSE 67–110; RESP 16–48; TEMP 36.1; O2SAT 88–94
[2021-09-16 03:06] LABS: Eosinophils % 0.1 %; Hematocrit 36.7 % (42.0-52.0); Hemoglobin 11.5 g/dL (11.7-16.6); Lymphocytes # 0.4 10^3/uL (0.8-4.8); Lymphocytes % 4.5 %; Mean Corpuscular HGB Conc 31.3 g/dL (30.0-36.0); Mean Corpuscular Hemoglobin 30.9 pg (28.0-34.0); Mean Corpuscular Volume 98.7 fl (80-94); Monocytes # 0.4 10^3/uL (0.2-0.9); Monocytes % 4.5 %; Neutrophils # 8.27 10^3/uL (1.8-7.7); Neutrophils % 89.7 %; Nucleated Red Blood Cells % 0 %; Platelet Count 334 10^3/cmm (130-400); Red Blood Count 3.72 10^6/uL (4.1-5.3); Red Cell Distribution Width 13.2 % (12.1-15.1); White Blood Count 9.2 10^3/uL (4.0-10.0)
[2021-09-16 03:35] LABS: Alanine Aminotransferase 13 U/L (0-41); Albumin Level 2.7 g/dL (3.5-5.2); Alkaline Phosphatase 78 IU/L (40-130); Anion Gap 13.8 (5-19); Aspartate Amino Transferase 10 U/L (0-40); Blood Urea Nitrogen 42 mg/dL (8-23); Calcium 9.5 mg/dL (8.5-10.5); Carbon Dioxide 24 mmol/L (22-29); Chloride 103 mmol/L (98-107); Globulin 2.5 g/dL (1.3-4.6); Glucose 231 mg/dL (65-115); Osmolality Calculated 300 mOsm/kg (285-295); Potassium 4.8 mmol/L (3.5-5.1); Sodium 136 mmol/L (136-145); Total Bilirubin 0.5 mg/dL (0.15-1.2); Total Protein 5.2 g/dL (6.6-8.7)
--- NOTE | 2021-09-16 06:00 | XR_ITS ---
WS: [id number] XR chest 1V portable [id number] REASON FOR EXAM: covid, removal of chest tube FINDINGS: Left lung remains fully inflated post chest tube removal. Residual lung opacities throughout the left lung. Right lung remains relatively clear. No new findings. XR/XR chest 1V portable [id number] IMPRESSION: No pneumothorax post chest tube removal. Residual opacities in the left lung.
[2021-09-16 06:22] LABS: Glucose Point of Care 187 mg/dL (70-110)
[2021-09-16] MEDS: ferrous gluconate 324 mg Tablet PO ×2 (07:37→18:13)
[2021-09-16] MEDS: insulin lispro 100 unit/1 mL SUBCUT ×4 (07:44→20:18)
[2021-09-16] MEDS: ascorbic acid 500 mg Tablet PO ×2 (08:07→18:13)
[2021-09-16] MEDS: atorvastatin 40 mg Tablet 20 MG PO (08:07)
[2021-09-16] MEDS: benzonatate 100 mg Capsule 200 MG PO ×3 (08:08→20:18)
[2021-09-16] MEDS: cholecalciferol (vitamin D3) 1,000 unit Tablet 2000 UNIT PO (08:08)
[2021-09-16] MEDS: lisinopril 10 mg Tablet PO (08:09)
[2021-09-16] MEDS: zinc gluconate 50 mg Tablet PO (08:09)
[2021-09-16] MEDS: NIFEdipine ER (24 hr) 30 mg Tablet 60 MG PO (08:09)
[2021-09-16] MEDS: pantoprazole DR 40 mg Tablet PO (08:09)
[2021-09-16] MEDS: metoprolol tartrate 25 mg Tablet PO ×2 (08:09→20:18)
[2021-09-16 09:03] LABS: PROTEIN, TOTAL 5.2 g/dL (6.1-8.1)
[2021-09-16] MEDS: enoxaparin 40 mg/0.4 mL Syringe SUBCUT (09:24)
[2021-09-16 11:56] LABS: Glucose Point of Care 144 mg/dL (70-110)
--- NOTE | 2021-09-16 13:33 | PC.NURSE ---
Measuring output, pt was incontinent in bed
[2021-09-16] MEDS: dexamethasone 10 mg/mL INJ 6 MG IVP (15:24)
--- NOTE | 2021-09-16 15:25 | PM.PN ---
Subjective Subjective: No acute vents overnight. Patient currently on room air. Denies any nausea, vomiting, headache. Sitting in the chair. Appropriate urine output. Today morning patient's son called stating that he would like the patient to go to SNF for further rehabitation. Patient seen by physical therapy today. He they have recommended home health. Multiple SNF has been faxed. Will await decision and decide discharge planning accordingly. Vitals/I&O/Wt Last Vital Signs Temp 97 F L 09/16/21 12:00 Pulse 70 09/16/21 12:00 Resp 24 H 09/16/21 12:00 BP 119/63 09/16/21 12:00 Pulse Ox 93 09/16/21 12:00 09/16/21 09/16/21 09/16/21 06:59 14:59 22:59 Intake Total 360 / 360 Output Total 100 / 100 Balance 260 / 260 Weight last 48 hrs Weight 102.829 kg Weight 103.136 kg Physical Exam Const: COMMON NORMALS: no acute distress and patient oriented x3 HENMT: COMMON NORMALS: normocephalic HEAD & SCALP: normocephalic Neck/C-Spine: COMMON NORMALS: no JVD Lymph: LYMPHATIC: no lymphadenopathy noted Chest: COMMONS NORMALS: normal inspection of the chest Resp: COMMON NORMALS: normal respiratory effort, No retractions and No use of accessory muscles AUSCULTATION: crackles and breath sounds absent on th left OTHER: Chest tubes removed, dressing at the site without any soakage Cardio: COMMON NORMALS: no JVD, regular rate, regular rhythm, S1 normal heart sound present and S2 normal heart sound present RATE: regular rate RHYTHM: regular rhythm HEART SOUNDS: S1 normal heart sound present and S2 normal heart sound present GI: COMMON NORMALS: Normal to inspection, nondistended, normoactive bowel sounds present, Soft to palpation, non-tender, No hepatosplenomegaly present, no masses and no bruits PALPATION: Yes Soft to palpation and Yes No hepatosplenomegaly present Extremity: COMMON NORMALS: capillary refill normal, no clubbing, cyanosis or edema, no calf tenderness and no pedal edema NARRATIVE EXTREMITY EXAM: 1+ pitting edema Neuro: COMMON NORMALS: patient oriented x3 Psych: COMMON NORMALS: mental status grossly normal Data : 09/16/21 02:40 09/16/21 02:40 A&P Assessment and plan (1) Collapse of left lung: Status: Acute (2) Hemothorax on left: Status: Acute (3) COVID-19: Status: Acute (4) Pneumonia due to COVID-19 virus: Status: Acute (5) Pleural effusion: Status: Acute Plan Hypoxia secondary to COVID-19 pneumonia: Mild to moderate disease. Oxygen supplementation keeping saturation over 88%. Dexamethasone 6 mg daily. Finished course for remdesivir. Vitamin C, zinc. 20 Switch to Advair, Spiriva. Pulmonary toilet with incentive spirometry flutter valve. We will monitor inflammatory markers including D-dimer, CRP every 48 hourly. If getting elevated will dose Actemra. Patient was made aware of the same and he has given verbal consent. D-dimer elevated. CTA negative for pulmonary embolism. Given presence of pneumothorax we will hold off on anticoagulation either prophylactic or therapeutic for now. Will monitor for anemia or blood loss. Procalcitonin negative. Sputum culture pending, MRSA swab negative. Finished course of azithromycin. Continue ceftriaxone to finish a 7-day course. Last dose on 09/15. Given hypoxia will try to keep patient as negative as possible. Echocardiogram done shows an EF of 60% with diastolic dysfunction with dilated aortic root, dilated IVC with decreased respiratory variation. Hold off on any further diuresis. Euvolemic. Strict input output charting, daily weights. Left lung collapse, left hemothorax: Post thoracotomy. Appreciate Dr. Banuelos's recommendation and expertise. Chest tubes removed on 09/15. Post chest tube removal x-ray from 09/16 reviewed. No pneumothorax. Biopsy from thoracotomy concerning for possible multiple myeloma versus amylodosis. Prediabetes, hemoglobin A1c 6.1. Insulin sliding scale low-dose protocol as patient is on dexamethasone Hypertension: Goal blood pressure less than 140/90 mmHg. Continue with home dose of lisinopril and nifedipine. Continue with metoprolol 25 mg twice daily. Anemia: Start on oral iron supplementation. Full code. Plan for day: Continue to monitor oxygen levels. Out of bed to chair. Physical therapy. Continue with Advair, Spiriva and Tessalon Perles. Awaiting safe discharge planning. Discharge plan: Plan to discharge the next 24 hours. SNF versus home with home health. Awaiting decisions from SNF. Attestations Medical Necessity Statement*: Requires further hospitalization for management of hypoxia secondary COVID-19 pneumonia, left pneumothorax post chest tube removal while discharge planning is sought. Time Spent in Patient Care: Greater than 35 minutes Coding Level of Care Code Acute Senior Marketing Coordinator for Chg Fwd Diagnoses Collapse of left lung J98.11 Hemothorax on left J94.2 COVID-19 U07.1 Pneumonia due to COVID-19 virus U07.1; J12.82 Pleural effusion J90
[2021-09-16 15:27] LABS: KAPPA LIGHT CHAIN, FREE, SERUM 23.4 mg/L (3.3-19.4); KAPPA/LAMBDA LIGHT CHAINS FREE 0.49 (0.26-1.65); LAMBDA LIGHT CHAIN, FREE, SERU 47.3 mg/L (5.7-26.3)
[2021-09-16 16:05] LABS: ALBUMIN 2.6 g/dL (3.8-4.8); ALPHA 1 GLOBULIN 0.5 g/dL (0.2-0.3); ALPHA 2 GLOBULIN 0.8 g/dL (0.5-0.9); BETA 1 GLOBULIN 0.3 g/dL (0.4-0.6); BETA 2 GLOBULIN 0.3 g/dL (0.2-0.5); GAMMA GLOBULIN 0.8 g/dL (0.8-1.7)
[2021-09-16 17:37] LABS: Glucose Point of Care 143 mg/dL (70-110)
[2021-09-16 20:13] LABS: Glucose Point of Care 244 mg/dL (70-110)
[2021-09-17] VITALS (10 sets, daily range): BP systolic 123–133; BP diastolic 56–73; PULSE 26–87; RESP 19–26; TEMP 35.9–36.2; O2SAT 89–93
[2021-09-17 06:21] LABS: Glucose Point of Care 171 mg/dL (70-110)
[2021-09-17] MEDS: insulin lispro 100 unit/1 mL SUBCUT ×2 (09:35→13:01)
[2021-09-17] MEDS: ferrous gluconate 324 mg Tablet PO (09:35)
[2021-09-17] MEDS: ascorbic acid 500 mg Tablet PO (09:35)
[2021-09-17] MEDS: atorvastatin 40 mg Tablet 20 MG PO (09:36)
[2021-09-17] MEDS: benzonatate 100 mg Capsule 200 MG PO ×2 (09:36→16:28)
[2021-09-17] MEDS: cholecalciferol (vitamin D3) 1,000 unit Tablet 2000 UNIT PO (09:36)
[2021-09-17] MEDS: metoprolol tartrate 25 mg Tablet PO (09:37)
[2021-09-17] MEDS: NIFEdipine ER (24 hr) 30 mg Tablet 60 MG PO (09:37)
[2021-09-17] MEDS: lisinopril 10 mg Tablet PO (09:37)
[2021-09-17] MEDS: pantoprazole DR 40 mg Tablet PO (09:37)
[2021-09-17] MEDS: zinc gluconate 50 mg Tablet PO (09:38)
[2021-09-17] MEDS: enoxaparin 40 mg/0.4 mL Syringe SUBCUT (09:38)
[2021-09-17 12:33] LABS: Glucose Point of Care 162 mg/dL (70-110)
--- NOTE | 2021-09-17 13:11 | P.DS_ITS ---
Discharge Providers Date of Admission: 09/08/21 14:10 Date of Discharge: September 17, 2021 Attending Provider at Admission: Janak Quinonez MD Attending Provider at Discharge: Cisco Davila MD Consults: CTSx: Dr. Banuelos Diagnoses at Discharge Discharge Diagnosis (1) Collapse of left lung: Status: Acute (2) Hemothorax on left: Status: Acute (3) COVID-19: Status: Acute (4) Pneumonia due to COVID-19 virus: Status: Acute (5) Pleural effusion: Status: Acute Reason for Visit Reason for Visit: GENERALIZED WEAKNESS Hospital Course Hospital Course History as per HPI: Patient was admitted on 09/08/2021 Harrison Garcia Case is a 85 year old male with a past medical history of hypertension, hyperlipidemia, who presents [facility] due to fevers, fatigue, malaise, shortness of breath.? He also reports pleurisy, shortness of breath and chest pain with deep breaths.? He tells me that he has been vaccinated for Covid has received both vaccinations, he was supposed to get the third vaccine but they were out of stock.? Has not received flu vaccine.? No history of lung disease.? No history of COPD, no history of smoking, no history of CAD.? No history of CVA.? No history of diabetes.? He tells me that progressively become more short of breath, fatigue, malaise, no diarrhea, no abdominal pain, no loss of taste, loss of smell Hospital course: Patient went to the hospital further evaluation and management of hypoxia secondary to COVID-19. He was started on treatment with IV remdesi vir, Decadron and inhalation treatment. He was found to have left lung collapse for which there was an attempt made for thoracentesis by IR but it was difficult to know next amount amount of dark blood returned hence CT surgery was consulted. 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 Patient tolerated the procedure well. Biopsies were sent in from the OR. Later the biopsy results came back concerning for possible multiple myeloma versus amyloidosis. Blood work has been sent regarding same. Patient hospitalization otherwise remained unremarkable and eventually his chest tubes were removed on 09/15. Safe discharge planning were discussed in detail with patient and patient's son. They wanted for patient to go to SNF. Physical therapy evaluation was done and patient did very well and walk up to 60 feet without any difficulty with a walker which has been ordered for safety and to prevent fall. Home health has been arranged and is been discharged in hemodynamically stable condition. Advised to take inhalation treatment with Advair and Spiriva daily. Advised to continue working with incentive spirometry and flutter valve while at home. Advised to continue taking dexamethasone 6 mg for next 7 days. 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 Can take his COVID-19 vaccination in 3 months. Advised to continue following social distancing and isolation protocol for next 10 days. Advised to come back to the ER if fever of more than 101 Fahrenheit, more difficulty breathing than usual or requiring higher oxygen supplementation. Physical Exam Const: COMMON NORMALS: no acute distress and patient oriented x3 HENMT: COMMON NORMALS: normocephalic HEAD & SCALP: normocephalic Neck/C-Spine: COMMON NORMALS: no JVD Lymph: LYMPHATIC: no lymphadenopathy noted Chest: COMMONS NORMALS: normal inspection of the chest Resp: COMMON NORMALS: normal respiratory effort, No retractions and No use of accessory muscles AUSCULTATION: crackles and breath sounds absent on th left OTHER: Chest tubes removed, dressing at the site without any soakage Cardio: COMMON NORMALS: no JVD, regular rate, regular rhythm, S1 normal heart sound present and S2 normal heart sound present RATE: regular rate RHYTHM: regular rhythm HEART SOUNDS: S1 normal heart sound present and S2 normal heart sound present GI: COMMON NORMALS: Normal to inspection, nondistended, normoactive bowel sounds present, Soft to palpation, non-tender, No hepatosplenomegaly present, no masses and no bruits PALPATION: Yes Soft to palpation and Yes No hepatosplenomegaly present Extremity: COMMON NORMALS: capillary refill normal, no clubbing, cyanosis or edema, no calf tenderness and no pedal edema NARRATIVE EXTREMITY EXAM: 1+ pitting edema Neuro: COMMON NORMALS: patient oriented x3 Psych: COMMON NORMALS: mental status grossly normal Discharge Data Studies Completed and Pending Completed Studies During Hospitalization Category Date Time Status CTA chest [CT angio chest PE protcl [id number]] Urgent Cat Scan 09/08/21 14:00 Completed XR chest 1V portable [id number] QAM Exams 09/16/21 06:00 Completed XR chest 1V portable [id number] Routine Exams 09/09/21 07:00 Completed XR chest 1V portable [id number] Routine Exams 09/10/21 04:00 Completed XR chest 1V portable [id number] Routine Exams 09/11/21 05:04 Completed XR chest 1V portable [id number] Routine Exams 09/11/21 10:01 Completed XR chest 1V portable [id number] Routine Exams 09/12/21 07:00 Completed XR chest 1V portable [id number] Routine Exams 09/14/21 06:00 Completed XR chest 1V portable [id number] Routine Exams 09/15/21 06:00 Completed XR chest 1V portable [id number] Routine Exams 09/15/21 17:58 Completed XR chest 1V portable [id number] Urgent Exams 09/08/21 10:20 Completed XR chest 1V portable [id number] Urgent Exams 09/09/21 10:07 Completed Pathology: Surgical [PTH] Routine Pth 09/11/21 09:42 Completed CV. echo complete* [id number] Routine Ultrasound 09/10/21 11:32 Completed US thoracentesis [id number] Urgent Ultrasound 09/09/21 10:00 Completed Pending at discharge Category Date Time Status Sputum Culture and Gram Stain Stat Lab 09/12/21 10:09 Uncollected Urine Protein Electrop Random Routine Lab 09/15/21 Ordered Radiology Impressions Chest CTA 09/08/21 14:00 IMPRESSION: 1. No evidence of pulmonary embolus. 2. Large left pleural effusion with scattered areas of increased attenuation may represent blood products. Associated compression of the left lower lobe with obstruction of the left lower lobe bronchi. 3. 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 This can be followed up with conventional angiography if indicated. 4. Numerous lesions in the liver nonspecific on this study but most likely hepatic cysts. This can be followed up with ultrasound. 5. Distended gallbladder with dense increased attenuation material likely sludge. Notified MARTI Hill at 09/08/2021 3:34 PM. Thoracentesis Ultrasound 09/09/21 10:00 IMPRESSION: 1. Unsuccessful LEFT thoracentesis. Very echogenic clotted material consistent with a hemothorax. Unsuccessful aspiration. Diffuse drops of very dark red clotted blood aspirated initially. 2. Chest radiograph to follow to evaluate for pneumothorax. 3. A rapid response was necessary after the examination was completed patient briefly became unresponsive. Chest X-Ray 09/16/21 06:00 IMPRESSION: No pneumothorax post chest tube removal. Residual opacities in the left lung. Echocardiogram: CONCLUSIONS ?1. Normal left ventricular size, systolic function with no?diagnostic regional wall motion abnormalities. Left ventricular?ejection fraction is estimated at 60 %. Abnormal diastolic?function. ?2. Normal right ventricular size and systolic function. ?3. Large left pleural effusion. ?4. Dilated aortic root measured at 43 mm. ?5. Dilated inferior vena cava with decreased respiratory?variation. ?6. No prior similar studies to compare. ?Elba Nicolas MD ?(Electronically Signed) ?Final Date:? ? ? 10 September 2021 ? 15:15 S Laboratory Results WBC 9.2 10^3/uL (4.0-10.0) 09/16/21 02:40 Corrected WBC Cancelled 09/11/21 06:30 RBC 3.72 10^6/uL (4.1-5.3) L 09/16/21 02:40 Hgb 11.5 g/dL (11.7-16.6) L 09/16/21 02:40 Hct 36.7 % (42.0-52.0) L 09/16/21 02:40 MCV 98.7 fl (80-94) H 09/16/21 02:40 MCH 30.9 pg (28.0-34.0) 09/16/21 02:40 MCHC 31.3 g/dL (30.0-36.0) 09/16/21 02:40 RDW 13.2 % (12.1-15.1) 09/16/21 02:40 Plt Count 334 10^3/cmm (130-400) 09/16/21 02:40 MPV 10.0 fL (7.4-10.4) 09/16/21 02:40 Gran % Cancelled 09/11/21 06:30 Neut % (Auto) 89.7 % 09/16/21 02:40 Lymph % (Auto) 4.5 % 09/16/21 02:40 Desha % (Auto) 4.5 % 09/16/21 02:40 Eos % (Auto) 0.1 % 09/16/21 02:40 Baso % (Auto) 0.0 % 09/16/21 02:40 Neut # (Auto) 8.27 10^3/uL (1.8-7.7) H 09/16/21 02:40 Lymph # (Auto) 0.4 10^3/uL (0.8-4.8) L 09/16/21 02:40 Desha # (Auto) 0.4 10^3/uL (0.2-0.9) 09/16/21 02:40 Eos # (Auto) 0.0 10^3/uL (0.0-0.8) 09/16/21 02:40 Baso # (Auto) 0.0 10^3/uL (0.0-0.1) 09/16/21 02:40 Absolute Gran (auto) Cancelled 09/11/21 06:30 Nucleated RBC % (auto) 0 % 09/16/21 02:40 Nucleated RBCs # 0.0 /100WBC 09/16/21 02:40 PT 16.00 SECONDS (12.1-14.9) H 09/12/21 03:30 INR 1.25 (0.8-1.2) H 09/12/21 03:30 D-Dimer 1.62 ug/mIFEU (0-0.59) H 09/08/21 13:01 Specimen Type Arterial 09/13/21 04:00 Sample Site Radial, left 09/13/21 04:00 ABG pH 7.43 (7.35-7.45) 09/13/21 04:00 ABG pCO2 45.5 mmHg (35-45) H 09/13/21 04:00 ABG pO2 62.3 mmHg (80.0-100.0) L 09/13/21 04:00 ABG HCO3 30.4 mmol/L (22-26) H 09/13/21 04:00 ABG O2 Saturation 90.0 09/09/21 10:10 ABG Base Excess 5.3 mmol/L (-2.0-2.0) H 09/13/21 04:00 Yaya Test Pos 09/13/21 04:00 A-a O2 Gradient 4.4 mmHg (5-10) L 09/09/21 10:10 Hematocrit 38.0 % (42-52) L 09/13/21 04:00 Hgb O2 Saturation 88.3 % (95-100) L 09/09/21 10:10 Carboxyhemoglobin 0.8 %THgb (0.4-20.1) 09/09/21 10:10 Methemoglobin 1.0 % (0.4-1.5) 09/09/21 10:10 Total Hemoglobin 12.0 g/dL (14-18) L 09/09/21 10:10 Sodium 140.0 mmol/L (131-143) 09/09/21 10:10 Potassium 4.0 mmol/L (3.5-5.0) 09/09/21 10:10 Glucose 176.0 mg/dL (70-115) H 09/09/21 10:10 Ionized Calcium 1.2 mmol/L (1.1-1.4) 09/09/21 10:10 O2 Delivery Device Nc 09/13/21 04:00 O2 Liters/Min 4.0 % 09/13/21 04:00 FiO2 44.0 % 09/11/21 04:18 Cleaner Signs ID ellpe 09/13/21 04:00 Sodium 136 mmol/L (136-145) 09/16/21 02:40 Potassium 4.8 mmol/L (3.5-5.1) 09/16/21 02:40 Chloride 103 mmol/L (98-107) 09/16/21 02:40 Carbon Dioxide 24 mmol/L (22-29) 09/16/21 02:40 Anion Gap 13.8 (5-19) 09/16/21 02:40 BUN 42 mg/dL (8-23) H 09/16/21 02:40 Creatinine 0.9 mg/dL (0.7-1.2) 09/16/21 02:40 GFR Calculation Not Reportable 09/16/21 02:40 Glucose 231 mg/dL (65-115) H 09/16/21 02:40 POC Glucose 162 mg/dL (70-110) H 09/17/21 12:16 Estimat Average Glucose 128 09/09/21 08:35 Hemoglobin A1c 6.1 % (4.0-6.0) H 09/09/21 08:35 Calculated Osmolality 300 mOsm/kg (285-295) H 09/16/21 02:40 Lactic Acid 1.7 mmol/L (0.5-2.2) 09/08/21 12:27 Lactate Cancelled 09/11/21 06:30 Calcium 9.5 mg/dL (8.5-10.5) 09/16/21 02:40 Phosphorus 2.8 mg/dL (2.5-4.5) 09/14/21 07:40 Magnesium 2.3 mg/dL (1.7-2.3) 09/14/21 07:40 Iron 20 ug/dL (59-158) L 09/12/21 03:30 TIBC 160 mcg/dl 09/12/21 03:30 % Saturation 12.5 % (20-50) L 09/12/21 03:30 Unsat Iron Binding 140 ug/dL (112-347) 09/12/21 03:30 Total Bilirubin 0.5 mg/dL (0.15-1.2) 09/16/21 02:40 AST 10 U/L (0-40) 09/16/21 02:40 ALT 13 U/L (0-41) 09/16/21 02:40 Alkaline Phosphatase 78 IU/L (40-130) 09/16/21 02:40 Creatine Kinase 262 U/L (39-308) 09/12/21 03:30 Troponin T Baseline 19 ng/L (0-15) H 09/08/21 12:27 Troponin T 120 Minute 18.20 ng/L (0-15) H 09/08/21 14:40 Delta Troponin T -0.80 ABS# (0-10) L 09/08/21 14:40 Troponin T Hi Sens 6Hr 18.74 ng/L (0-15) H 09/08/21 18:07 Troponin T Hi Sens 6Hr Delta -0.26 ng/L (0-12) L 09/08/21 18:07 C-Reactive Protein 15.9 mg/L (0.0-4.9) H 09/14/21 07:40 NT-Pro-B Natriuret Pep 288 pg/mL (0-450) 09/12/21 03:30 Total Protein 5.2 g/dL (6.6-8.7) L 09/16/21 02:40 Albumin 2.7 g/dL (3.5-5.2) L 09/16/21 02:40 Globulin 2.5 g/dL (1.3-4.6) 09/16/21 02:40 Jdmzv-1-Cjiqdmwql 0.5 g/dL (0.2-0.3) H 09/15/21 03:59 Cmmwt-5-Whvvnnyqy 0.8 g/dL (0.5-0.9) 09/15/21 03:59 Xgex-7-Tsmqasee 0.3 g/dL (0.4-0.6) L 09/15/21 03:59 Tjvz-3-Jilrgzgw 0.3 g/dL (0.2-0.5) 09/15/21 03:59 Gamma Globulins 0.8 g/dL (0.8-1.7) 09/15/21 03:59 Abnorm Protein Band 1 Not Reportable 09/15/21 03:59 Triglycerides 66 mg/dL (0-150) 09/13/21 07:25 Cholesterol 68 mg/dL (0-200) 09/13/21 07:25 LDL Cholesterol, Calc 30 mg/dL (50-129) L 09/13/21 07:25 Total VLDL Cholesterol 13 mg/dL (0-30) 09/13/21 07:25 HDL Cholesterol 25 mg/dL (60-100) L 09/13/21 07:25 Cholesterol/HDL Ratio 2.72 mg/dL (1.0-5.00) 09/13/21 07:25 Procalcitonin 0.15 ng/mL (0-0.5) 09/12/21 03:30 TSH 1.49 uIU/mL (0.27-4.20) 09/09/21 08:35 TSH Cancelled 09/09/21 08:35 U Abnormal Prot Band 2 Not Reportable 09/15/21 03:59 U Abnormal Prot Band 3 Not Reportable 09/15/21 03:59 Pro Electrophoresis Int See note 09/15/21 03:59 Free Menno Light Chains 23.4 mg/L (3.3-19.4) H 09/15/21 03:59 Free Lambda Light Chain 47.3 mg/L (5.7-26.3) H 09/15/21 03:59 Free Menno/Lambda Ratio 0.49 (0.26-1.65) 09/15/21 03:59 SARS-CoV-2 Ag (Rapid) Negative (Negative) 09/14/21 14:00 Blood Type O Positive 09/10/21 13:40 Rho(D) Type Positive 09/10/21 13:40 Antibody Screen Negative 09/10/21 13:40 Crossmatch See Detail 09/10/21 13:40 Vitals Last Vital Signs Temp 97 F L 09/16/21 12:00 Pulse 74 09/17/21 09:42 Resp 20 H 09/17/21 09:42 BP 123/61 09/17/21 03:14 Pulse Ox 92 09/17/21 09:42 Discharge Plan Discharge Patient Disposition: Home Health Service Condition: Stable Prescriptions: New Advair Diskus 250-50 mcg/dose Blister With Device 1 puff inhalation BID.RESPIRATORY 14 Days Qty: 28 0RF Vitamin C 500 mg Tablet 500 mg PO BID 14 Days Qty: 28 0RF benzonatate 100 mg Capsule 200 mg PO TID PRN (Reason: cough) Qty: 10 0RF pantoprazole 40 mg Tablet,Delayed Release (Dr/Ec) 40 mg PO DAILY Qty: 30 0RF zinc gluconate 50 mg Tablet 50 mg PO DAILY Qty: 14 0RF metoprolol tartrate 25 mg Tablet 25 mg PO BID@0900,2100 30 Days Qty: 60 0RF ferrous gluconate 324 mg (37.5 mg iron) Tablet 324 mg PO BIDWM Qty: 60 0RF Spiriva with HandiHaler 18 mcg capsule, w/inhalation device 1 cap inhalation DAILY Qty: 14 0RF Rx Instructions: puncture 1 cap using device; one dose = 2 inhalations dexamethasone 6 mg tablet 6 mg PO Q24H Qty: 5 0RF Rx Instructions: for up to 10 days Continued pravastatin 40 mg Tablet 40 mg PO DAILY 0RF lisinopril 20 mg Tablet 10 mg PO DAILY 0RF nifedipine 60 mg Tablet Extended Release 24hr 60 mg PO DAILY 0RF Vitamin D3 50 mcg (2,000 unit) Capsule 50 mcg PO DAILY 0RF Discharge Orders: Discharge Order (Routine); Ordered 09/17/21 Ordered By: Cisco Davila Other Ambulatory Orders: DME: Joseluis (Order) Location: None Selected Ordered By: Cisco Davila [facility]: [facility]) [Outside] (Plan will be to see you Monday09/20/21 or 09/21/2021 to complete initial assessment. Please call them with any questions.) Harrison Banuelos MD [Physician] - 2 weeks Helio Birmingham FNP [Emergency Department] - 7-10 days Discharge Diet: Regular Discharge Activity: Resume usual activity and Increase activity as tolerated Patient Instructions: Opioid Safety Activity Restrictions/Additional Instructions: Advised to take inhalation treatment with Advair and Spiriva daily. Advised to continue working with incentive spirometry and flutter valve while at home. Advised to continue taking dexamethasone 6 mg for next 7 days. Advised to follow-up with his primary care provider and his CT surgery/Dr. Banuelos within the next 4 to 7 days. Can take his COVID-19 vaccination in 3 months. Advised to continue following social distancing and isolation protocol for next 10 days. Advised to come back to the ER if fever of more than 101 Fahrenheit, more difficulty breathing than usual or requiring higher oxygen supplementation. Discharge Attestations Time Spent in Discharge Care*: greater than 30 min Specific Discharge Activities: educating patient, educating and/or supporting family/caregiver, discussing with pcp/other providers, discussing with rehabilitation case coordinator/social workers/dc planners, documenting/other paperwork and evaluating patient/reviewing data Status at Discharge: Cognitive status at discharge: cognitively intact , Behavioral status at discharge: cooperative , Functional status at discharge: independent ambulation , Overall status at discharge: patient is progressing back to baseline Quality Metrics Clinical Quality Measures [ No reported AMI, CVA or VTE this stay] Coding Level of Care Code Acute Chg FW DC note Exam Comprehensive Medical Decision Making High Complexity Diagnoses Collapse of left lung J98.11 Hemothorax on left J94.2 COVID-19 U07.1 Pneumonia due to COVID-19 virus U07.1; J12.82 Pleural effusion J90
--- NOTE | 2021-09-17 14:33 | PC.SOCIAL ---
IM follow up explained to Son and provided number in case he feels patient is not ready for dc and they choose to appeal.
== END 2021-09-17 18:15 | disposition home health service (06) | DRG 163 ==
LOC: ER 14:13 → MEDSURG 18:25 → ICU 09-11 01:26 → CSU 09-14 08:19
PROVIDERS: Thoracic Surgery (Cardiothoracic Vascular Surgery); Admitting Provider Family Medicine; Emergency Provider Physician Assistant; Visit Provider Student in an Organized Health Care Education/Training Program
PROC: 0BBJ0ZZ Excision of Left Lower Lung Lobe, Open Approach (ICD-10-PCS; principal; 2021-09-11 07:00)
PROC: 0BJ08ZZ Inspection of Tracheobronchial Tree, Via Natural or Artificial Opening Endoscopic (ICD-10-PCS; CPT 31622; 2021-09-11 07:00)
PROC: 0WP800Z Removal of Drainage Device from Chest Wall, Open Approach (ICD-10-PCS; CPT 32552; principal; 2021-09-15 17:30)
DX: U07.1 COVID-19 (principal); J12.82 Pneumonia due to coronavirus disease 2019; J98.11 Atelectasis; J94.2 Hemothorax; J98.19 Other pulmonary collapse; T85.698A Other mechanical complication of other specified internal prosthetic devices, implants and grafts, initial encounter; E78.5 Hyperlipidemia, unspecified; I10 Essential (primary) hypertension; Z66 Do not resuscitate; W19.XXXA Unspecified fall, initial encounter; D64.9 Anemia, unspecified; Y75.1 Therapeutic (nonsurgical) and rehabilitative neurological devices associated with adverse incidents
CPT/HCPCS: 01996; 32555; 36410; 36415; 36416; 36600; 62324; 71045; 71275; 76937; 80048; 80051; 80053; 80061; 80500; 82330; 82550; 82803; 82805; 82962; 83036; 83540; 83550; 83605; 83735; 83880; 83883; 84100; 84145; 84155; 84165; 84443; 84484; 85025; 85378; 85610; 86140; 86850; 86900; 86920; 87040; 87150; 87205; 87426; 87641; 88309; 92526; 92610; 93005; 93306; 94640; 94660; 94664; 94669; 96372; 96374; 96375; 97116; 97161; 97530; 99285; C2816; J0456; J0690; J0696; J1100; J1650; J1815; J1885; J1940; J2270; J2370; J2405; J2704; J3010; J3370; J3490; J7030; J7050; J7608; J7626; Q9967

== ENCOUNTER 2021-09-28 14:38 | Inpatient (IN) | payer MEDICARE, SELFPAY ==
[2021-09-28] VITALS (29 sets, daily range): BP systolic 115–158; BP diastolic 60–88; PULSE 71–90; RESP 14–28; TEMP 36.3–37.2; O2SAT 80–99; BMI 28.5
--- NOTE | 2021-09-28 | USCV_ITS ---
Transthoracic Echo CaseHarrison Age: 85 Gender: M : 1935 Exam Date: 09/28/2021 23:22 Ordering Phys: Evangelina Cortes MD Technologist: THI Exam Location: [facility] [place] Indication: PE/RT Sided Heart Strain BP: 133 / 73 HR: 83 Rhythm: Sinus Technical Quality: Adequate MEASUREMENTS (Male / Female) Normal Values 2D ECHO LV Diastolic Diameter PLAX 3.6 cm 4.2 - 5.9 / 3.9 - 5.3 cm LV Systolic Diameter PLAX 2.2 cm IVS Diastolic Thickness 1.5 cm 0.6 - 1.0 / 0.6 - 0.9 cm IVS Systolic Thickness 1.8 cm LVPW Diastolic Thickness 1.6 cm 0.6 - 1.0 / 0.6 - 0.9 cm LVPW Systolic Thickness 2.1 cm LVOT Diameter 2.4 cm LV Ejection Fraction 2D Teich 71.5 % LA Diameter 4.1 cm LA Width 4.0 cm LA Height 5.3 cm RA Width 3.1 cm RA Height 5.0 cm Aorta at Sinotubular Diameter 4.1 cm M-MODE Aortic Annulus Diameter 3.9 cm LA Ao Ratio MM 1.1 MV E Point Septal Separation 1.0 cm DOPPLER AV Peak Velocity 111.0 cm/s LVOT Peak Velocity 101.0 cm/s AV Area Cont Eq vti 4.6 cm squared AV Area Cont Eq pk 4.3 cm squared MV Peak Velocity 134.0 cm/s MV Area PHT 2.3 cm squared Mitral E to A Ratio 0.6 MV E' Velocity 46.0 cm/s Mitral E to MV E' Ratio 10.8 Mitral E to LV E' Lateral Ratio 8.9 Mitral E to LV E' Septal Ratio 13.8 TR Peak Velocity 239.8 cm/s TR Peak Gradient 23.0 mmHg TR Mean Velocity 175.4 cm/s TR Mean Gradient 13.4 mmHg TR Velocity Time Integral 66.5 cm TV Peak E Velocity 80.0 cm/s Right Atrial Pressure 3.0 mmHg Pulmonary Artery Systolic Pressu 26.0 mmHg PV Peak Velocity 86.7 cm/s RV Acceleration Time 0.1 s RV Ejection Time 0.4 s RV AcT/ET 0.4 FINDINGS Left Ventricle Normal left ventricular size and systolic function, EF 71%.Grade I/IV diastolic dysfunction (abnormal relaxation filling pattern), normal to mildly elevated filling pressures. Mild left ventricular hypertrophy. No regional wall motion abnormalities. Right Ventricle The right ventricle is normal in size and function. Right Atrium The right atrium is normal in size. Left Atrium The left atrium is normal in size. Mitral Valve Thickened mitral valve. Mild mitral annular calcification. Mild mitral valve regurgitation. Aortic Valve Thickened aortic valve. Tricuspid Valve No gross abnormalities no Pulmonic Valve Pulmonic valve not well visualized. Pericardium Normal pericardium without effusion. Aorta Mildly dilated aortic root, measuring 4.6 cm at the level of the sinuses and 3.8 cm the level of the isthumus. CONCLUSIONS Normal left ventricular size and systolic function, EF 71%.Grade I/IV diastolic dysfunction (abnormal relaxation filling pattern), normal to mildly elevated filling pressures. Mild left ventricular hypertrophy. No regional wall motion abnormalities. Thickened mitral valve. Mild mitral annular calcification. Mild mitral valve regurgitation. Mildly dilated aortic root, measuring 4.6 cm at the level of the sinuses and 3.8 cm the level of the isthumus. Thickened aortic valve. There is no pericardial effusion. There are no intracardiac masses. No previous study is available for comparison. Dr Makr Lowery MD [facility] (Electronically Signed) Final Date: 29 September 2021 13:20 S
--- NOTE | 2021-09-28 14:42 | W.ED.SOB ---
HPI - SOB/Dyspnea General: Chief Complaint: Shortness of Breath/Dyspnea Stated Complaint: SOB Time Seen by Provider: 09/28/21 14:42 History of Present Illness: HPI Narrative: Mr. Dickens is an 85-year-old gentleman with complex recent past hospitalization which initially started as Covid with hypoxemia however patient developed pneumothorax and required resection of AVM malformation who presents emergency department due to shortness of breath. He was improving significantly and felt well after hospital discharge on 09/17. Home care nursing visits have been going well however he began to feel mildly short of breath and was noted to have low oxygen levels this morning. He was not requiring oxygen previously and presents after developing hypoxemia and respiratory distress. He denies associated infectious symptoms or pain. He reports compliance with his medication regimen and is eating and drinking well. Intensity symptoms is moderate to severe. Course has been worsening. No other specific changes in health, exacerbating, or relieving factors identified for Onset (ago): hour(s) Context: recent illness and other Timing: constant Severity: severe Exacerbating factors: exertion Relieving factors: nothing Known history of: other Review of Systems General: Reports: 10 or more systems reviewed and unremarkable except in HPI and below PFS ED PFSH: Medical History HTN (hypertension) Hyperlipidemia Surgical History No pertinent past surgical history Social History Smoking and tobacco status: never smoked Alcohol intake: never Physical Exam Const: COMMON NORMALS: alert GENERAL APPEARANCE: cooperative, in distress (resp) and ill appearing HENMT: COMMON NORMALS: normocephalic and atraumatic HEAD & SCALP: normocephalic and atraumatic THROAT: posterior oropharynx normal Eye: COMMON NORMALS: conjunctivae normal CONJUNCTIVA: Yes conjunctivae normal SCLERA: sclerae normal Neck/C-Spine: COMMON NORMALS: supple GENERAL: Yes trachea midline Resp: AUSCULTATION: rhonchi lower bilaterally and diminished lung sounds on the left Cardio: COMMON NORMALS: regular rate and regular rhythm RATE: regular rate RHYTHM: regular rhythm GI: COMMON NORMALS: Soft to palpation PALPATION: Yes Soft to palpation and No Tenderness to palpation present (GI) PERCUSSION: normal to percussion Extremity: GENERAL: Yes normal exam except as noted and No edema Neuro: COMMON NORMALS: moves all extremities SENSORIUM/ORIENTATION: Yes alert and No Orientation impaired Psych: COMMON NORMALS: mental status grossly normal and Normal thought process present THOUGHT PROCESS: Normal thought process present Course ED course: - Patient was seen and evaluated by me at bedside - Patient placed on cardiac monitors, IV access obtained - Initial evaluation notable for exam as above, respiratory distress requiring supplemental oxygen increase - Labs notable for no leukocytosis, normal hemoglobin. Metabolic panel without acute electrolyte derangement requiring intervention. Troponin is increased however 2-hour troponin delta is negative, BNP and increase. - Imaging notable for diffuse infiltrate and plaque atelectasis left lower lobe, wedge-shaped opacity along the mid left lateral pleural cavity. Given high complexity of recent medical and surgical history as well as recent hospitalization and hypoxemia with increased oxygen demand CTA is warranted. CTA notable most notably for pulmonary embolisms. After discussion of risks and benefits anticoagulation ordered - Upon serial reexamination after treatment the patient was improved - Based on patient history, evaluation, labs, and imaging as interpreted the most likely cause of the patient's condition is multifactorial including acute pulmonary embolism - The results of ED evaluation were discussed with the patient including plan for admission due to requirement for level of care not available if discharged to prevent significant worsening/deterioration. -Hospitalist service contacted and agreed admit the patient - Patient was admitted without further deterioration or significant events. Note: Click bubbles or prepopulated chua in note writing are used for assistance with data collection and billing and are inherently more limited than narrative and other text portions of this note. Please use narrative for additional clinical history and defer to narrative/free test for any case of contradictory information. If information appears in only free text or click bubble it should be considered present or absent as reported. Please contact note principal technical writer for clarifications of clinical information or contradictory information. MDM is a brief summary, contradictory or erroneous seeming information should be clarified and full note should be reviewed. Vital Signs: Vital signs: Vital Signs Temperature 98.2 F 10/03/21 03:21 Pulse Rate 93 10/03/21 15:05 Respiratory Rate 18 10/03/21 15:05 Blood Pressure 118/67 10/03/21 15:05 Pulse Oximetry 92 10/03/21 15:05 MDM - SOB/Dyspnea Medical Decision Making 85-year-old gentleman with complex recent past medical history including thoracotomy secondary to suspected AVM which cause bleeding due to Covid presenting with worsening shortness of breath. Patient found to have worsening oxygen requirement, respiratory distress, and found to have pulmonary embolisms. Patient admitted for further definitive management and treatment. Medical Records I reviewed the patient's medical records. Lab Data I reviewed the patient's lab results. : 10/03/21 04:45 10/03/21 04:45 Labs/Radiology: Radiology Impressions Chest CTA 09/28/21 15:31 IMPRESSION: 1. Acute pulmonary embolism. 2. Findings suggesting right heart strain. 3. Postsurgical changes in the left lower lobe. 4. Small left pneumothorax likely related to recent surgery. 5. Residual mostly loculated pleural effusion. 6. Left pleural effusion much improved compared with 09/08/2021. COMMENTS: THIS REPORT CONTAINS FINDINGS THAT MAY BE CRITICAL TO PATIENT CARE. The findings were verbally communicated via telephone conference with Severiano Linda at 7:07 PM DATA MANAGEMENT SPECIALIST on 09/28/2021. The findings were acknowledged and understood. Chest X-Ray 09/30/21 07:00 IMPRESSION: 1. Small loculated pleural effusion in the LEFT thorax similar to recent chest CT. 2. No pneumonia. 3. No residual pneumothorax seen radiographically. Laboratory Results WBC 8.5 10^3/uL (4.0-10.0) 09/28/21 15:08 RBC 4.03 10^6/uL (4.1-5.3) L 09/28/21 15:08 Hgb 12.5 g/dL (11.7-16.6) 09/28/21 15:08 Hct 39.2 % (42.0-52.0) L 09/28/21 15:08 MCV 97.3 fl (80-94) H 09/28/21 15:08 MCH 31.0 pg (28.0-34.0) 09/28/21 15:08 MCHC 31.9 g/dL (30.0-36.0) 09/28/21 15:08 RDW 14.4 % (12.1-15.1) 09/28/21 15:08 Plt Count 161 10^3/cmm (130-400) 09/28/21 15:08 MPV 9.9 fL (7.4-10.4) 09/28/21 15:08 Neut % (Auto) 73.0 % 09/28/21 15:08 Lymph % (Auto) 11.1 % 09/28/21 15:08 Grayson % (Auto) 10.9 % 09/28/21 15:08 Eos % (Auto) 4.3 % 09/28/21 15:08 Baso % (Auto) 0.1 % 09/28/21 15:08 Neut # (Auto) 6.19 10^3/uL (1.8-7.7) 09/28/21 15:08 Lymph # (Auto) 0.9 10^3/uL (0.8-4.8) 09/28/21 15:08 Grayson # (Auto) 0.9 10^3/uL (0.2-0.9) 09/28/21 15:08 Eos # (Auto) 0.4 10^3/uL (0.0-0.8) 09/28/21 15:08 Baso # (Auto) 0.0 10^3/uL (0.0-0.1) 09/28/21 15:08 Nucleated RBC % (auto) 0 % 09/28/21 15:08 Nucleated RBCs # 0.0 /100WBC 09/28/21 15:08 PT 14.90 SECONDS (12.1-14.9) 09/28/21 15:08 INR 1.13 (0.8-1.2) 09/28/21 15:08 APTT 34.7 SECONDS (23.9-36.7) 09/28/21 15:08 Specimen Type Arterial 09/28/21 15:33 Sample Site Radial, right 09/28/21 15:33 ABG pH 7.46 (7.35-7.45) H 09/28/21 15:33 ABG pCO2 37.8 mmHg (35-45) 09/28/21 15:33 ABG pO2 91.2 mmHg (80.0-100.0) 09/28/21 15:33 ABG HCO3 26.5 mmol/L (22-26) H 09/28/21 15:33 ABG Base Excess 2.6 mmol/L (-2.0-2.0) H 09/28/21 15:33 Yaya Test Pos 09/28/21 15:33 Hematocrit 36.8 % (42-52) L 09/28/21 15:33 O2 Delivery Device Nrb 09/28/21 15:33 O2 Liters/Min 15.0 % 09/28/21 15:33 FiO2 100.0 % 09/28/21 15:33 Microfilm Camera Operator ID Lucy 09/28/21 15:33 Sodium 142 mmol/L (136-145) 09/28/21 15:08 Potassium 4.2 mmol/L (3.5-5.1) 09/28/21 15:08 Chloride 105 mmol/L (98-107) 09/28/21 15:08 Carbon Dioxide 24 mmol/L (22-29) 09/28/21 15:08 Anion Gap 17.2 (5-19) 09/28/21 15:08 BUN 37 mg/dL (8-23) H 09/28/21 15:08 Creatinine 1.0 mg/dL (0.7-1.2) 09/28/21 15:08 GFR Calculation Not Reportable 09/28/21 15:08 Glucose 135 mg/dL (65-115) H 09/28/21 15:08 Calculated Osmolality 305 mOsm/kg (285-295) H 09/28/21 15:08 Calcium 9.5 mg/dL (8.5-10.5) 09/28/21 15:08 Magnesium 2.2 mg/dL (1.7-2.3) 09/28/21 15:08 Total Bilirubin 0.5 mg/dL (0.15-1.2) 09/28/21 15:08 AST 16 U/L (0-40) 09/28/21 15:08 ALT 23 U/L (0-41) 09/28/21 15:08 Alkaline Phosphatase 104 IU/L (40-130) 09/28/21 15:08 Troponin T Baseline 51 ng/L (0-15) H 09/28/21 15:08 Troponin T 120 Minute 47.36 ng/L (0-15) H 09/28/21 17:18 Delta Troponin T -3.64 ABS# (0-10) L 09/28/21 17:18 Troponin T Hi Sens 6Hr 42.87 ng/L (0-15) H 09/28/21 21:23 Troponin T Hi Sens 6Hr Delta -8.13 ng/L (0-12) L 09/28/21 21:23 C-Reactive Protein 48.9 mg/L (0.0-4.9) H 09/28/21 15:08 NT-Pro-B Natriuret Pep 1154 pg/mL (0-450) H 09/28/21 15:08 Total Protein 5.8 g/dL (6.6-8.7) L 09/28/21 15:08 Albumin 3.3 g/dL (3.5-5.2) L 09/28/21 15:08 Globulin 2.5 g/dL (1.3-4.6) 09/28/21 15:08 Procalcitonin 0.12 ng/mL (0-0.5) 09/28/21 15:08 Coronavirus 229E (PCR) Not detected (NOT DETECT) 09/28/21 15:48 SARS-CoV-2 (PCR) Not detected (NOT DETECT) 09/28/21 15:48 EKG Data EKG 1: I personally reviewed and interpreted this EKG as follows: EKG Interpretation Date: 10/26/21 EKG interpretation time: 15:10 Interpretation: Twelve-lead EKG shows a regular rhythm at a rate of 77. IN interval 145, QRS duration 91, QTc 420. Normal axis. Interpretation: Sinus rhythm, nonspecific ST segment abnormalities. Critical Care Time Critical Care Time: Critical Care Time: Yes Total Critical Care Time: 40 Attestation: Due to a high probability of clinically significant, possibly life threatening deterioration, the patient required my highest level of attention and preparedness to intervene emergently and I personally spent this critical care time directly and personally managing the patient. This critical care time included obtaining a history; examining the patient; pulse oximetry; ordering and review of laboratory and imaging studies; arranging urgent treatment with development of a management plan; evaluation of patient's response to treatment; frequent reassessment; and, discussions with other providers as applicable. It was exclusive of separately billable procedures. Primary system involved is pulmonary. Discharge Plan Discharge Patient Disposition: Admitted As Inpatient Admit Provider: Evangelina Cortes Clinical Impression: Pulmonary embolism, Acute respiratory failure with hypoxia Condition: Stable Discharge Diet: Cardiac Discharge Activity: Resume usual activity Coding Level of Care Code ED Molten Iron Pourer for Chg Kaylie
--- NOTE | 2021-09-28 14:45 | XR_ITS ---
WS: [id number] Exam: XR chest 1V portable [id number] Date/Time of Exam: 09/28/2021 2:52 PM Reason For Exam: sob Comparison 09/16/2021. Patchy infiltrates seen in the lower left lung zone. Wedge-shaped opacity seen along the mid lateral left pleural cavity probably represents loculated pleural effusion. The right lung is clear. Normal c ardiomediastinal silhouette. No pneumothorax seen. Bony structures are intact. XR/XR chest 1V portable [id number] IMPRESSION: 1. Diffuse infiltrate and areas of plaque atelectasis in the lower left lung zo ne. 2. Wedge-shaped opacity along the mid lateral left pleural cavity suggesting lo culated pleural fluid.
--- NOTE | 2021-09-28 15:00 | ECG_ITS ---
[facility] Test Date: 2021-09-28 Pat Name: Harrison Dickens Department: Room: Gender: Male Layer Out: : 1935 Requested By: Severiano Linda Order Number: [id number] Colton MD: Elba Nicolas M.D. Measurements Intervals [place] Rate: 77 P: 54 [place]: 145 QRS: 71 QRSD: 91 T: 0 QT: 370 QTc: 420 Interpretive Statements SINUS RHYTHM Compared to ECG 09/14/2021 10:31:07 Sinus tachycardia no longer present T-wave abnormality no longer present Electronically Signed On 09-28-2021 17:41:42 HOT REPAIRMAN by Elba Nicolas M.D. [email or web address] [email or web address] [email or web address] river regionEco Power Solutionskindred hospital [email or web address]/store/[id number] f
--- NOTE | 2021-09-28 15:06 | PC.NURSE ---
PT PLACED ON CONTINUOUS BEDSIDE, BP AND O2 MONITOR.
[2021-09-28 15:19] LABS: Basophils % 0.1 %; Eosinophils # 0.4 10^3/uL (0.0-0.8); Eosinophils % 4.3 %; Hematocrit 39.2 % (42.0-52.0); Hemoglobin 12.5 g/dL (11.7-16.6); Lymphocytes # 0.9 10^3/uL (0.8-4.8); Lymphocytes % 11.1 %; Mean Corpuscular HGB Conc 31.9 g/dL (30.0-36.0); Mean Corpuscular Volume 97.3 fl (80-94); Mean Platelet Volume 9.9 fL (7.4-10.4); Monocytes # 0.9 10^3/uL (0.2-0.9); Monocytes % 10.9 %; Neutrophils # 6.19 10^3/uL (1.8-7.7); Nucleated Red Blood Cells % 0 %; Platelet Count 161 10^3/cmm (130-400); Red Blood Count 4.03 10^6/uL (4.1-5.3); Red Cell Distribution Width 14.4 % (12.1-15.1); White Blood Count 8.5 10^3/uL (4.0-10.0)
--- NOTE | 2021-09-28 15:31 | CTR_ITS ---
PROCEDURE INFORMATION: Exam: CTA Chest With Contrast Exam date and time: 09/28/2021 3:31 PM Age: 85 years old Clinical indication: Shortness of breath; Patient HX: Recent thoracotomy, SOB, hypoxia; Additional info: SOB, hypoxemia, recent hospitalization and thoracotomy TECHNIQUE: Imaging protocol: Computed tomographic angiography of the chest with contrast. 3D rendering (Not supervised by radiologist): MIP and/or 3D reconstructed images were created by the technologist. Radiation optimization: All CT scans at this facility use at least one of these dose optimization techniques: automated exposure control; mA and/or kV adjustment per patient size (includes targeted exams where dose is matched to clinical indication); or iterative reconstruction. Contrast material: OMNI 350; Contrast volume: 71 ml; Contrast route: INTRAVENOUS (IV); COMPARISON: CT angio chest PE protcl [id number] 09/08/2021 3:04 PM RADIATION DOSE METRICS: Total DLP (mGy-cm): 540.17 FINDINGS: Pulmonary arteries: There are filling defects in pulmonary artery branches mainly on the right but also seen in some left side pulmonary branches consistent with acute pulmonary emboli new compared with 09/08/2021. Aorta: There is no thoracic aortic aneurysm or dissection. Lungs: Right lung is clear. There is some mild atelectatic changes at the left lung base. Pleural spaces: Left pleural effusion is much smaller than on 09/08/2021. The pleural effusion is partly loculated along the chest wall and in the fissure. Some of the loculated fluid anteriorly on the left is higher density which could represent some residual hemothorax. There is a small loculated pneumothorax posteriorly on the left within a pocket of loculated fluid and also tiny bit of pneumothorax superior medially on the left. Heart: There is small amount of fluid in the superior pericardial recess. There is a small 15 mm fluid density nodule adjacent to the anterior pericardium at the level of the aortic root likely small pericardial cyst. This may have been present previously. Heart RV/LV ratio: RV to LV ratio is elevated close to 1.2. Lymph nodes: There is no evidence of lymphadenopathy. Bones/joints: Enlarged inferior left pulmonary vein is again identified but much less prominent than on the previous examination and there are findings of left thoracotomy with sutures in the left lower lobe. Please correlate with the surgical history. Soft tissues: Unremarkable. CT/CT angio chest PE protcl [id number] IMPRESSION: 1. Acute pulmonary embolism. 2. Findings suggesting right heart strain. 3. Postsurgical changes in the left lower lobe. 4. Small left pneumothorax likely related to recent surgery. 5. Residual mostly loculated pleural effusion. 6. Left pleural effusion much improved compared with 09/08/2021. COMMENTS: THIS REPORT CONTAINS FINDINGS THAT MAY BE CRITICAL TO PATIENT CARE. The findings were verbally communicated via telephone conference with Severiano Linda at 7:07 PM MEDICAL CLAIMS REPRESENTATIVE on 09/28/2021. The findings were acknowledged and understood.
[2021-09-28 15:45] LABS: ABG PCO2 37.8 mmHg (35-45); ABG PH Result 7.46 (7.35-7.45); Arterial Blood Gas Hematocrit 36.8 % (42-52); Base Excess ABG 2.6 mmol/L (-2.0-2.0); Blood Gas Allen Test Pos; Blood Gas Sample Type Arterial; HCO3 ABG 26.5 mmol/L (22-26); PO2 ABG 91.2 mmHg (80.0-100.0)
[2021-09-28 15:46] LABS: Blood Gas Operator Identificat MONRO; Blood Gas Sample Site Radial, right; Oxygen Device NRB
[2021-09-28 15:50] LABS: Troponin(5th) Baseline 51 ng/L (0-15)
[2021-09-28 15:57] LABS: NT Pro B Type Natriuretic Pept 1154 pg/mL (0-450); Procalcitonin 0.12 ng/mL (0-0.5)
[2021-09-28 16:08] LABS: Alanine Aminotransferase 23 U/L (0-41); Albumin Level 3.3 g/dL (3.5-5.2); Alkaline Phosphatase 104 IU/L (40-130); Anion Gap 17.2 (5-19); Aspartate Amino Transferase 16 U/L (0-40); Blood Urea Nitrogen 37 mg/dL (8-23); C Reactive Protein 48.9 mg/L (0.0-4.9); Calcium 9.5 mg/dL (8.5-10.5); Carbon Dioxide 24 mmol/L (22-29); Chloride 105 mmol/L (98-107); Globulin 2.5 g/dL (1.3-4.6); Glucose 135 mg/dL (65-115); Magnesium 2.2 mg/dL (1.7-2.3); Osmolality Calculated 305 mOsm/kg (285-295); Potassium 4.2 mmol/L (3.5-5.1); Sodium 142 mmol/L (136-145); Total Bilirubin 0.5 mg/dL (0.15-1.2); Total Protein 5.8 g/dL (6.6-8.7)
[2021-09-28 17:39] LABS: Adenovirus Not Detected (NOT DETECT); Chlamydia Pneumoniae Not Detected (NOT DETECT); Coronavirus 229E,HKU1,NL63,OC4 Not Detected (NOT DETECT); Human Metapneumovirus Not Detected (NOT DETECT); Human Rhinovirus/Enterovirus Not Detected (NOT DETECT); Influenza A Not Detected (NOT DETECT); Influenza A H1 Not Detected (NOT DETECT); Influenza A H1-2009 Not Detected (NOT DETECT); Influenza A H3 Not Detected (NOT DETECT); Influenza B Not Detected (NOT DETECT); Mycoplasma Pneumoniae Not Detected (NOT DETECT); Parainfluenza Virus Type 1 Not Detected (NOT DETECT); Parainfluenza Virus Type 2 Not Detected (NOT DETECT); Parainfluenza Virus Type 3 Not Detected (NOT DETECT); Parainfluenza Virus Type 4 Not Detected (NOT DETECT); Respiratory Syncytial Virus A Not Detected (NOT DETECT); Respiratory Syncytial Virus B Not Detected (NOT DETECT); SARS-COV-2 Not Detected (NOT DETECT)
[2021-09-28 17:56] LABS: Troponin 5 2HR 47.36 ng/L (0-15)
[2021-09-28 17:58] LABS: Troponin 5 2HR Delta -3.64 ABS# (0-10)
[2021-09-28] MEDS: iohexol 350 mg/mL 100 mL Btl IV (18:19)
[2021-09-28 19:33] LABS: INR 1.13 (0.8-1.2)
[2021-09-28 19:34] LABS: Partial Thromboplastin Time 34.7 SECONDS (23.9-36.7)
[2021-09-28] MEDS: heparin 5,000 unit/mL INJ 1 mL IV (19:47)
[2021-09-28] MEDS: heparin drip 25,000 UNIT/500 ML PREMIX 26.67 UNIT IV (19:50)
--- NOTE | 2021-09-28 21:00 | ECG_ITS ---
[facility] Test Date: 2021-09-28 Pat Name: Harrison Dickens Department: Room: ICU06 Gender: Male Instructional Technology Coordinator: : 1935 Requested By: Severiano Linda Order Number: [id number] Colton MD: Mark Lowery M.D. Measurements Intervals [place] Rate: 84 P: 34 PA: 132 QRS: -32 QRSD: 92 T: 30 QT: 365 QTc: 432 Interpretive Statements SINUS RHYTHM Compared to ECG 09/28/2021 15:05:08 No significant changes Electronically Signed On 09-29-2021 20:08:32 PERSONALIZED LIVING MANAGER NURSE by Mark Lowery M.D. [email or web address] [email or web address] Therapeuticsuniversity hospitals [facility].[place]/store/OM/[id number]
--- NOTE | 2021-09-28 21:05 | PC.NURSE ---
Patient brought to ICU 6 via stretcher. Patient currently on heparin gtt at 27mls/hr. Patient on heated high flow at 40L and 60%. All vital signs are stable at this time.
--- NOTE | 2021-09-28 21:14 | P.HP_ITS ---
Providers/Chief Complaint Admitting Physician: Evangelina Cortes MD Primary Care Provider: Jud Victor MD Chief Complaint: SOB History of Present Illness Harrison Garcia Case is a 85 year old male with a past medical history of hypertension, hyperlipidemia, recently admitted here between 09/08-09/17 due to fevers, fatigue, malaise, shortness of breath, was found to have COVID 19 pneumonia, treated with remdesivir, Decadron and inhalation treatment. Hospital course was complicated by left lung collapse for which??CT surgery was consulted.? 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 He did well with PT and was eventually discharged home with . He presented back to the ER today for shortness of breath which started just today. He was noted also to have new 02 requirement with sat 80% on RA. Currently on heated hi flow which is being attempted to be weaned down. CTA of the chest today shows Acute PE with filling defects in pulmonary artery branches mainly on the right but also seen in some left side pulmonary branches. Findings suggesting right heart strain also noted. ?Small left pneumothorax likely related to recent surgery.Small Left pleural effusion much improved compared with 09/08/2021. Review of Systems General: Reports: 10 or more systems reviewed and unremarkable except in HPI and below Const: Denies: fever(s), chills or body aches Eyes: Denies: change in vision, blurry vision or photophobia ENMT: Reports: hoarseness; Denies: throat pain, enlarged tonsils, odynophagia or nasal congestion Card: Denies: chest pain, palpitations, irregular heart rhythm, edema, swelling of feet/ankles, lightheadedness, pre-syncope, dyspnea on exertion or orthopnea Resp: Denies: dyspnea, productive cough, non-productive cough, wheezing, stridor, pain on inspiration, change in phlegm color, hemoptysis or chest congestion GI: Denies: abdominal pain, nausea, vomiting, hematemesis, coffee ground emesis, dysphagia, heartburn, diarrhea, constipation, GI cramping, change in stool character, hematochezia or melena : Denies: flank pain, dysuria, urinary frequency, urinary urgency, urinary hesitancy or hematuria Musc: Denies: neck pain, back pain, extremity pain, joint swelling, joint warmth or deformity Neuro: Denies: headache(s), numbness in extremities, weakness in extremities, sensory changes, difficulty walking, frequent falls, dizziness, vertigo, behavioral changes, Slurred speech present or seizure-like activity Psych: Denies: anxiety, depression, suicidal ideation or homicidal ideation Endo: Denies: polyuria, polydipsia, tired all the time, cold intolerance or hot flashes Juan Pablo/Lymph: Denies: easy bruising or easy bleeding Medications/Allergies Home Medications Medication Instructions Recorded Confirmed Last Taken Type cholecalciferol (vitamin D3) 50 50 mcg PO QPM 09/08/21 09/28/21 09/27/21 History mcg (2,000 unit) capsule (Vitamin D3) lisinopril 20 mg tablet 10 mg PO QAM 09/08/21 09/28/21 Unknown History nifedipine 60 mg tablet,extended 60 mg PO DAILY 09/08/21 09/28/21 Unknown History release 24 hr pravastatin 40 mg tablet 40 mg PO QAM 09/08/21 09/28/21 09/28/21 History ascorbic acid (vitamin C) 500 mg 500 mg PO BID 14 Days #28 tab 09/17/21 09/28/21 09/28/21 08:00 Rx tablet (Vitamin C) benzonatate 100 mg capsule 200 mg PO TID PRN #10 cap 09/17/21 09/28/21 Unknown Rx dexamethasone 6 mg tablet 6 mg PO Q24H #5 tab 09/17/21 09/28/21 09/22/21 Rx finished 09/22/21 ferrous gluconate 324 mg (37.5 mg 324 mg PO BIDWM #60 tab 09/17/21 09/28/21 09/28/21 Rx iron) tablet metoprolol tartrate 25 mg tablet 25 mg PO BID@0900,2100 30 Days #60 09/17/21 09/28/21 09/28/21 Rx tab tiotropium bromide 18 mcg capsule 1 cap INHALATION DAILY #14 inh 09/17/21 09/28/21 Unknown Rx with inhalation device (Spiriva with HandiHaler) tramadol 50 mg tablet 50 mg PO Q12H PRN #10 tab 09/17/21 09/28/21 Unknown Rx diphenhydramine 25 2 tab PO QPM 09/28/21 09/28/21 09/27/21 History mg-acetaminophen 500 mg tablet (Tylenol PM Extra Strength) fluticasone 250 mcg-salmeterol 50 1 puff INHALATION BID 09/28/21 09/28/21 Unknown History mcg/dose blistr powdr for inhalation (Advair Diskus) pantoprazole 40 mg tablet,delayed 40 mg PO QAM 09/28/21 09/28/21 09/28/21 History release zinc gluconate 50 mg tablet 50 mg PO DAILY 09/28/21 09/28/21 Unknown History Allergies Allergy/AdvReac Type Severity Reaction Status Date / Time No Known Allergies Allergy Verified 09/28/21 16:10 PFSH Acute PFSH: Medical History HTN (hypertension) Hyperlipidemia Surgical History No pertinent past surgical history Social History Smoking and tobacco status: never smoked Alcohol intake: never Vitals/I&O/Wt Last Vital Signs Temp 97.3 F L 09/28/21 14:54 Pulse 76 09/28/21 21:01 Resp 23 H 09/28/21 18:51 BP 145/86 09/28/21 21:01 Pulse Ox 98 09/28/21 21:01 Weight last 48 hrs Weight 95.254 kg Physical Exam Narrative: GEN: Awake, alert and oriented, no acute distress CVS: S1S2 N RS: B/L crackles at lung bases Abd: Soft, nt/nd , bs+ 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 Acute pulmonary embolism. 2. Findings suggesting right heart strain. 3. Postsurgical changes in the left lower lobe. 4. Small left pneumothorax likely related to recent surgery. 5. Residual mostly loculated pleural effusion. 6. Left pleural effusion much improved compared with 09/08/2021. Other data: ABG PH Result 7.46 H 7.35-7.45 ABG PCO2 37.8 35-45 mmHg ABG PO2 91.2 80.0-100.0 mmHg ABG HCO3 26.5 H 22-26 mmol/L ABG BE 2.6 H -2.0-2.0 mmol/L FIO2 100.0 % BG OP ID MONRO Yaya Test Pos O2 Device NRB Blood Gas LPM 15.0 % Sample Type Arterial Sample Site Radial, right ABG Hematocrit 36.8 L 42-52 % A&P Assessment and plan (1) Pulmonary embolism: Acute B/L PE noted on CTA s/p recent covid 19 admission and complicated hospital admission as above Started on heparin infusion at this time, careful monitoring of hemoglobin while on a/c given recent history of hemothorax which needed thoracotomy and chest tub e placement. Per path results from wedge resection no evidence of arteriovenous malformation.? Wedge resection mostly consists of post viral changes as well as diffuse alveolar damage. Evidence of right heart strain on CT- check echocardiogram. elevated troponin at baseline 50, negative 2 hr delta, likely related to right heart strain Elevated BNP 1154, up from 288 on last admission may be additionally related to pulm HTN, right heart strain. titrate 02 to keep saturation >90%, currently on helated hi flow at 60% fi02 at 40lpm Lasix 20mg IVP q12h, monitor renal function and urine output. Status: Acute (2) Acute respiratory failure with hypoxia: related to Acute PE currently on heated hi flow Status: Acute Attestations Medical Necessity Statement*: > 2midnight admission anticipated for above defined care Critical Care Time: The high probability of a clinically significant, sudden or life threatening deterioration of the patient's [respiratory,cardiac] system(s) required my full and direct attention, intervention and personal fermin gement. The critical care time is as shown. This time is in addition to time spent performing any reported procedures but includes the following: [x] Data and vital sign review and interpretation [x] Patient assessment, examination and intervention [x] Documentation [x] Medication orders and management Coding Level of Care Code Acute Director Of Personnel for [facility] Diagnoses Pulmonary embolism I26.99 Acute respiratory failure with hypoxia J96.01
[2021-09-28 21:48] LABS: Troponin 5 6HR 42.87 ng/L (0-15)
[2021-09-28 21:49] LABS: Troponin 5 6HR Delta -8.13 ng/L (0-12)
[2021-09-29] VITALS (57 sets, daily range): BP systolic 106–172; BP diastolic 58–89; PULSE 68–94; RESP 19–33; TEMP 36.3–37.1; O2SAT 85–95
--- NOTE | 2021-09-29 | USCV_ITS ---
LE Venous Duplex BILATERAL CaseHarrison Age: 85 Gender: M : 1935 Exam Date: 09/29/2021 23:29 Ordering Phys: Janak Quinonez MD Technologist: CKoJhn Exam Location: [facility] – [place] Indication: DVT PROCEDURES: Venous duplex imaging was performed in bilateral lower extremities. The following venous structures were evaluated: common femoral vein, profunda vein, proximal portion of the greater saphenous vein, superficial femoral vein, and the popliteal vein. In addition, the posterior tibial and peroneal trunk were evaluated. Serial compression, augmentation maneuvers, and spectral Doppler flow evaluation were performed. FINDINGS: Normal 2-D Doppler and augmentation and compressibility throughout the lower extremity venous structures. Additional imaging through the proximal calf veins also reveals no thrombus. Limited evaluation of the greater saphenous vein is patent with no thrombus. CONCLUSIONS No DVT bilateral lower extremities. Dr. Sally Biggs DO (Electronically Signed) Final Date: 30 September 2021 07:47 S
[2021-09-29] MEDS: FUROsemide 10 mg/mL SDV 2mL 20 MG IVP ×2 (00:23→12:42)
[2021-09-29] MEDS: ALPRAZolam 0.5 mg Tablet PO ×2 (01:18→22:19)
[2021-09-29 02:08] LABS: Basophils % 0.3 %; Eosinophils # 0.4 10^3/uL (0.0-0.8); Eosinophils % 5.6 %; Hematocrit 36.7 % (42.0-52.0); Hemoglobin 11.7 g/dL (11.7-16.6); Lymphocytes # 1.1 10^3/uL (0.8-4.8); Lymphocytes % 16.7 %; Mean Corpuscular HGB Conc 31.9 g/dL (30.0-36.0); Mean Corpuscular Hemoglobin 30.8 pg (28.0-34.0); Mean Corpuscular Volume 96.6 fl (80-94); Mean Platelet Volume 9.9 fL (7.4-10.4); Monocytes # 0.7 10^3/uL (0.2-0.9); Monocytes % 10.9 %; Neutrophils # 4.34 10^3/uL (1.8-7.7); Nucleated Red Blood Cells % 0 %; Platelet Count 143 10^3/cmm (130-400); Red Cell Distribution Width 14.6 % (12.1-15.1); White Blood Count 6.6 10^3/uL (4.0-10.0)
[2021-09-29 02:31] LABS: Alanine Aminotransferase 19 U/L (0-41); Alkaline Phosphatase 99 IU/L (40-130); Anion Gap 13.6 (5-19); Aspartate Amino Transferase 14 U/L (0-40); Blood Urea Nitrogen 30 mg/dL (8-23); Calcium 9.2 mg/dL (8.5-10.5); Carbon Dioxide 27 mmol/L (22-29); Chloride 106 mmol/L (98-107); Globulin 2.4 g/dL (1.3-4.6); Glucose 109 mg/dL (65-115); Osmolality Calculated 303 mOsm/kg (285-295); Potassium 3.6 mmol/L (3.5-5.1); Sodium 143 mmol/L (136-145); Total Bilirubin 0.5 mg/dL (0.15-1.2); Total Protein 5.4 g/dL (6.6-8.7)
[2021-09-29] MEDS: ipratropium-albuterol 3 mL Neb INHALATION ×4 (02:39→20:14)
[2021-09-29] MEDS: lisinopril 10 mg Tablet PO (05:52)
[2021-09-29] MEDS: atorvastatin 40 mg Tablet 20 MG PO (05:52)
[2021-09-29] MEDS: metoprolol tartrate 25 mg Tablet PO ×2 (08:26→22:19)
[2021-09-29] MEDS: NIFEdipine ER (24 hr) 30 mg Tablet 60 MG PO (08:26)
[2021-09-29] MEDS: pantoprazole DR 40 mg Tablet PO (08:26)
[2021-09-29 08:41] LABS: Partial Thromboplastin Time 57.2 SECONDS (23.9-36.7)
--- NOTE | 2021-09-29 10:37 | PC.CHAP ---
Pastoral Care Encounter/Spiritual Assessment Type of Contact [] Declined psychometric examiner visit [] Patient/Family/Request visit [] Outpatient visit [] Follow-up visit [] Physician referral [] Code/Alert [x] Routine visit [] Staff referral [] Actively dying [] Patient sleeping [x] Family support [] [] Out of room [] Palliative care [] [] Receiving care in room [] Pre-surgical visit [] Trauma [] Long length of stay [x] ICU visit [] Other: Relational/Emotional Strength [] Patient feels connected with others/family/visitors/staff [] Distress [] Loneliness/isolation [] Abandonment Spirituality of Patient [] Person of Gladys [] Attends Yazidi of their Gladys [] Believes in Prayer [] Reads Bible or Christian materials [] There are Spiritual issues to be addressed Sales Inspector Interventions [x] Prayer [x] Active listening [x] Non-anxious presence [x] Spiritual/emotional support [] Crisis/trauma care [] Spiritual counseling [] Bereavement support [] Provided bereavement packet [] Provided Bible/devotional materials [] Provided toy/stuffed animal, coloring book to patient or family member [] Provided Communion [] Anointing/[place] [] Salvation [x] Completed spiritual assessment [] Other: Impact on Illness or Injury [] Angry [] Fearful [] Anxious [] Often cries [] Exhaustion [] Unable to work [] Unable to attend protestant [] Unable to walk/stand [] Unable to read [] Unable to drive [] Unable to eat/drink [] Unable to sleep [] Unable to be with family [] Patient intubated [] Other: Summary patient setting up having breakfast... possibility of being moved to med surg Time spent with patient 10 min
--- NOTE | 2021-09-29 14:47 | PC.RESP ---
RT Shift Note Frequent safety and respiratory rounds continue. Orders completed as indicated. Patient monitored pre and post treatments throughout shift. Patient [Did.] tolerate treatments appropriately. Condition [.DidNotChange]. Patient and/or paper sales representative educated on respiratory treatment and medications. Patient and/or paper sales representative [verbalized understandng]. Will continue to monitor patient progress.
[2021-09-29 15:26] LABS: Partial Thromboplastin Time 48.9 SECONDS (23.9-36.7)
[2021-09-29] MEDS: heparin 5,000 unit/mL INJ 1 mL IV ×2 (15:53→22:49)
--- NOTE | 2021-09-29 16:32 | P.PN_ITS ---
Subjective Subjective: Patient was seen this morning, son is at bedside, he tells me that he is feeling all right, suddenly yesterday he started feeling more short of breath, does tell me that he was mobile, denies any fevers, no hematemesis Vitals/I&O/Wt Last Vital Signs Temp 97.9 F 09/29/21 14:00 Pulse 83 09/29/21 15:53 Resp 20 H 09/29/21 15:53 BP 127/69 09/29/21 14:00 Pulse Ox 93 09/29/21 15:53 09/29/21 09/29/21 09/29/21 06:59 14:59 22:59 Intake Total 662.69 / 902.69 Output Total 1550 / 1550 1100 / 1100 Balance -887.31 / -647.31 -1100 / -1100 Weight last 48 hrs Weight 94.347 kg Weight 95.254 kg Physical Exam Const: COMMON NORMALS: no acute distress and patient oriented x3 Resp: COMMON NORMALS: normal respiratory effort, No retractions and No use of accessory muscles OTHER: Decreased aeration in left lower lobe Cardio: COMMON NORMALS: regular rate, regular rhythm, S1 normal heart sound present and S2 normal heart sound present RATE: regular rate RHYTHM: regular rhythm HEART SOUNDS: S1 normal heart sound present and S2 normal heart sound present GI: COMMON NORMALS: Normal to inspection, nondistended, normoactive bowel sounds present, Soft to palpation, non-tender and No hepatosplenomegaly present PALPATION: Yes Soft to palpation and Yes No hepatosplenomegaly present Extremity: COMMON NORMALS: no pedal edema Neuro: COMMON NORMALS: patient oriented x3 Psych: COMMON NORMALS: mental status grossly normal Data : 09/29/21 01:51 09/29/21 01:51 A&P Assessment and plan (1) Pulmonary embolism: Acute B/L PE noted on CTA Pulmonary arteries: There are filling defects in pulmonary artery branches mainly on the right but also seen in some left side pulmonary branches consistent with acute pulmonary emboli new compared with 09/08/2021. s/p recent covid 19 admission and complicated hospital admission as above Started on heparin infusion at this time, careful monitoring of hemoglobin while on a/c given recent history of hemothorax which needed thoracotomy and chest tube placement. Per path results from wedge resection no evidence of arteriovenous malformation.? Wedge resection mostly consists of post viral changes as well as diffuse alveolar damage. Evidence of right heart strain on CT - check echocardiogram Normal left ventricular size and systolic function, EF 71%.Grade ?I/IV diastolic dysfunction (abnormal relaxation filling ?pattern), normal to mildly elevated filling pressures. Mild left ?ventricular hypertrophy. No regional wall motion abnormalities. ?Thickened mitral valve. Mild mitral annular calcification. Mild ?mitral valve regurgitation. ?Mildly dilated aortic root, measuring 4.6 cm at the level of the ?sinuses and 3.8 cm the level of the isthumus. ?Thickened aortic valve. ?There is no pericardial effusion. ?There are no intracardiac masses. ?No previous study is available for comparison. elevated troponin at baseline 50, negative 2 hr delta, likely related to right heart strain Elevated BNP 1154, up from 288 on last admission may be additionally related to pulm HTN, right heart strain. titrate 02 to keep saturation >90%, currently on helated hi flow at 60% fi02 at 40lpm Daily dose Lasix Small left pneumothorax, likely related to recent surgery, repeat chest x-ray daily, avoid positive pressure ventilation Residual left loculated pleural effusion, continue to monitor Recent history of Covid infection, repeat testing so far negative Status: Acute (2) Acute respiratory failure with hypoxia: related to Acute PE currently on heated hi flow Status: Acute (3) Pneumothorax: Status: Acute (4) Pleural effusion: Status: Acute Attestations 2 Medical Necessity Statement*: Patient requires hospitalization for bilateral pulmonary emboli, pneumothorax Coding Level of Care Code Acute 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
[2021-09-29] MEDS: FUROsemide 10 mg/mL SDV 4mL 40 MG IVP (17:26)
[2021-09-29] MEDS: heparin drip 25,000 UNIT/500 ML PREMIX 23 UNIT IV (17:56)
--- NOTE | 2021-09-29 18:16 | PC.NURSE ---
Shift Note Frequent safety and comfort rounds continue. Orders and/or nursing care completed as indicated. Patient monitored for response to intervention and treatment(s). Education provided includes heparin drip. Patient and/or associate sales representative verbalize understanding. Will continue to monitor. Heparin running at 23ml/hr. Pt on HHF at 70%.
[2021-09-29 19:32] LABS: Hematocrit 37.6 % (42.0-52.0); Hemoglobin 12.2 g/dL (11.7-16.6)
[2021-09-29 22:07] LABS: Partial Thromboplastin Time 54.2 SECONDS (23.9-36.7)
[2021-09-29] MEDS: ferrous gluconate 324 mg Tablet PO (22:19)
[2021-09-30] VITALS (49 sets, daily range): BP systolic 106–179; BP diastolic 57–127; PULSE 63–88; RESP 16–33; TEMP 36.3–37.1; O2SAT 85–97
[2021-09-30] MEDS: ipratropium-albuterol 3 mL Neb INHALATION ×4 (03:32→20:41)
[2021-09-30 04:41] LABS: Basophils % 0.3 %; Eosinophils # 0.4 10^3/uL (0.0-0.8); Eosinophils % 7.1 %; Hematocrit 37.4 % (42.0-52.0); Hemoglobin 11.6 g/dL (11.7-16.6); Lymphocytes # 0.8 10^3/uL (0.8-4.8); Lymphocytes % 13.3 %; Mean Corpuscular Hemoglobin 31.1 pg (28.0-34.0); Mean Corpuscular Volume 100.3 fl (80-94); Mean Platelet Volume 9.8 fL (7.4-10.4); Monocytes # 0.7 10^3/uL (0.2-0.9); Monocytes % 12.1 %; Neutrophils # 3.96 10^3/uL (1.8-7.7); Neutrophils % 66.7 %; Nucleated Red Blood Cells % 0 %; Platelet Count 125 10^3/cmm (130-400); Red Blood Count 3.73 10^6/uL (4.1-5.3); Red Cell Distribution Width 14.4 % (12.1-15.1); White Blood Count 5.9 10^3/uL (4.0-10.0)
[2021-09-30 04:58] LABS: Alanine Aminotransferase 16 U/L (0-41); Albumin Level 2.9 g/dL (3.5-5.2); Alkaline Phosphatase 95 IU/L (40-130); Anion Gap 11.8 (5-19); Aspartate Amino Transferase 13 U/L (0-40); Blood Urea Nitrogen 22 mg/dL (8-23); C Reactive Protein 45.6 mg/L (0.0-4.9); Carbon Dioxide 30 mmol/L (22-29); Chloride 101 mmol/L (98-107); Globulin 2.5 g/dL (1.3-4.6); Glucose 114 mg/dL (65-115); Osmolality Calculated 292 mOsm/kg (285-295); Phosphorus 4.2 mg/dL (2.5-4.5); Potassium 3.8 mmol/L (3.5-5.1); Sodium 139 mmol/L (136-145); Total Bilirubin 0.6 mg/dL (0.15-1.2); Total Protein 5.4 g/dL (6.6-8.7)
[2021-09-30 05:00] LABS: INR 1.09 (0.8-1.2)
[2021-09-30 05:11] LABS: Partial Thromboplastin Time 61.6 SECONDS (23.9-36.7)
[2021-09-30 05:15] LABS: NT Pro B Type Natriuretic Pept 500 pg/mL (0-450)
[2021-09-30 05:27] LABS: ABG PCO2 48.8 mmHg (35-45); ABG PH Result 7.43 (7.35-7.45); Arterial Blood Gas Hematocrit 41.3 % (42-52); Base Excess ABG 6.5 mmol/L (-2.0-2.0); Blood Gas Allen Test Pos; Blood Gas Operator Identificat JB; Blood Gas Sample Type Arterial; HCO3 ABG 32.1 mmol/L (22-26); Oxygen Device HAG
[2021-09-30 05:31] LABS: Blood Gas Sample Site Radial, right
[2021-09-30] MEDS: atorvastatin 40 mg Tablet 20 MG PO (06:08)
[2021-09-30] MEDS: lisinopril 10 mg Tablet PO (06:09)
--- NOTE | 2021-09-30 07:00 | XR_ITS ---
WS: [id number] PORTABLE CHEST HISTORY: sob COMPARISON: 09/28/2021, 09/28/2021 Mild volume loss LEFT lung. Well-circumscribed opacification is pleural-based in the mid LEFT lung me asuring 11.2 x 3.5 cm consistent with a loculated pleural effusion that was previously described. No increase in size. The effusion has decreased and improved since 09/08/2021. No residual pneumothorax id entified radiographically. Cardiac size: Normal. Mediastinum/Aorta: Mild atherosclerosis aorta. No osseous abnormality seen. XR/XR chest 1V portable [id number] IMPRESSION: 1. Small loculated pleural effusion in the LEFT thorax similar to recent chest CT. 2. No pneumonia. 3. No residual pneumothorax seen radiographically.
[2021-09-30] MEDS: FUROsemide 10 mg/mL SDV 4mL 40 MG IVP (09:19)
[2021-09-30] MEDS: NIFEdipine ER (24 hr) 30 mg Tablet 60 MG PO (09:20)
[2021-09-30] MEDS: metoprolol tartrate 25 mg Tablet PO ×2 (09:20→20:05)
[2021-09-30] MEDS: pantoprazole DR 40 mg Tablet PO (09:20)
[2021-09-30] MEDS: ferrous gluconate 324 mg Tablet PO ×2 (09:20→17:51)
--- NOTE | 2021-09-30 10:21 | PC.CHAP ---
Pastoral Care Encounter/Spiritual Assessment Type of Contact [] Declined paralegal assistant visit [] Patient/Family/Request visit [] Outpatient visit [] Follow-up visit [] Physician referral [] Code/Alert [x] Routine visit [] Staff referral [] Actively dying [] Patient sleeping [] Family support [] [] Out of room [] Palliative care [] [] Receiving care in room [] Pre-surgical visit [] Trauma [] Long length of stay [x] ICU visit [] Other: Relational/Emotional Strength [] Patient feels connected with others/family/visitors/staff [] Distress [] Loneliness/isolation [] Abandonment Spirituality of Patient [] Person of Gladys [] Attends Episcopal of their Gladys [] Believes in Prayer [] Reads Bible or Quaker materials [] There are Spiritual issues to be addressed Licensed Insurance Agent Interventions [x] Prayer [x] Active listening [x] Non-anxious presence [x] Spiritual/emotional support [] Crisis/trauma care [] Spiritual counseling [] Bereavement support [] Provided bereavement packet [] Provided Bible/devotional materials [] Provided toy/stuffed animal, coloring book to patient or family member [] Provided Communion [] Anointing/[place] [] Salvation [x] Completed spiritual assessment [] Other: Impact on Illness or Injury [] Angry [] Fearful [] Anxious [] Often cries [] Exhaustion [] Unable to work [] Unable to attend episcopalian [] Unable to walk/stand [] Unable to read [] Unable to drive [] Unable to eat/drink [] Unable to sleep [] Unable to be with family [] Patient intubated [] Other: Summary patient questioned selection on TV.. looking for [employer].... feeling stronger... weather to bad for family to come in Time spent with patient 10 min
[2021-09-30 11:01] LABS: Partial Thromboplastin Time 54.3 SECONDS (23.9-36.7)
[2021-09-30] MEDS: heparin 5,000 unit/mL INJ 1 mL IV ×2 (11:05→17:51)
--- NOTE | 2021-09-30 11:28 | PM.PN ---
Subjective Subjective: Patient was seen this morning, currently on 60%, tells me that he is breathing fine, no complaints of bloody or black stools Vitals/I&O/Wt Last Vital Signs Temp 98.1 F 09/30/21 08:00 Pulse 79 09/30/21 10:00 Resp 23 H 09/30/21 10:00 BP 174/127 09/30/21 10:00 Pulse Ox 94 09/30/21 09:00 09/29/21 09/30/21 09/30/21 22:59 06:59 14:59 Intake Total 730.777 / 730.777 420 / 1150.777 300 / 300 Output Total 1500 / 2600 400 / 3000 Balance -769.223 / -1869.223 20 / -1849.223 300 / 300 Weight last 48 hrs Weight 94.801 kg Weight 94.347 kg Weight 95.254 kg Physical Exam Const: COMMON NORMALS: no acute distress and patient oriented x3 Resp: COMMON NORMALS: normal respiratory effort, No retractions, No use of accessory muscles and clear to auscultation bilaterally AUSCULTATION: clear to auscultation bilaterally Cardio: COMMON NORMALS: regular rate, regular rhythm, S1 normal heart sound present and S2 normal heart sound present RATE: regular rate RHYTHM: regular rhythm HEART SOUNDS: S1 normal heart sound present and S2 normal heart sound present GI: COMMON NORMALS: Normal to inspection, nondistended, normoactive bowel sounds present, Soft to palpation, non-tender and No hepatosplenomegaly present PALPATION: Yes Soft to palpation and Yes No hepatosplenomegaly present Extremity: COMMON NORMALS: no pedal edema Neuro: COMMON NORMALS: patient oriented x3 Data : 09/30/21 04:32 09/30/21 04:32 A&P Assessment and plan (1) Pulmonary embolism: Acute B/L PE noted on CTA Pulmonary arteries: There are filling defects in pulmonary artery branches mainly on the right but also seen in some left side pulmonary branches consistent with acute pulmonary emboli new compared with 09/08/2021. s/p recent covid 19 admission and complicated hospital admission as above Started on heparin infusion at this time, careful monitoring of hemoglobin while on a/c given recent history of hemothorax which needed thoracotomy and chest tube placement. Per path results from wedge resection no evidence of arteriovenous malformation.? Wedge resection mostly consists of post viral changes as well as diffuse alveolar damage. Evidence of right heart strain on CT - check echocardiogram Normal left ventricular size and systolic function, EF 71%.Grade ?I/IV diastolic dysfunction (abnormal relaxation filling ?pattern), normal to mildly elevated filling pressures. Mild left ?ventricular hypertrophy. No regional wall motion abnormalities. ?Thickened mitral valve. Mild mitral annular calcification. Mild ?mitral valve regurgitation. ?Mildly dilated aortic root, measuring 4.6 cm at the level of the ?sinuses and 3.8 cm the level of the isthumus. ?Thickened aortic valve. ?There is no pericardial effusion. ?There are no intracardiac masses. ?No previous study is available for comparison. elevated troponin at baseline 50, negative 2 hr delta, likely related to right heart strain Elevated BNP 500 PT OT on last admission may be additionally related to pulm HTN, right heart strain. titrate 02 to keep saturation >90%, currently on helated hi flow at 60% fi02 at 40lpm Daily dose Lasix Small left pneumothorax, likely related to recent surgery, repeat chest x-ray daily, avoid positive pressure ventilation Residual left loculated pleural effusion, continue to monitor Recent history of Covid infection, repeat testing so far negative PT OT Status: Acute (2) Acute respiratory failure with hypoxia: related to Acute PE currently on heated hi flow Status: Acute (3) Pneumothorax: Status: Acute (4) Pleural effusion: Status: Acute Attestations Medical Necessity Statement*: Patient requires hospitalization for acute respiratory failure secondary to bilateral pulmonary emboli Coding Level of Care Code 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
[2021-09-30] MEDS: heparin drip 25,000 UNIT/500 ML PREMIX 27 UNIT IV (15:32)
[2021-09-30 17:15] LABS: Partial Thromboplastin Time 50.6 SECONDS (23.9-36.7)
--- NOTE | 2021-09-30 19:17 | PC.NURSE ---
Shift Note: Pt making progress today with his O2 needs. He was on heated high flow 40L and 705 at beginning of shift. He finished shift at 8lpm/HFNC. Exertional dyspnea improving. Heparin gtt remains infusing, therapeutic level not consistent yet, so PTT checked and gtt and boluses adjusted. He has been out of bed to chair for the morning. He sat up on side of bed for dinner without difficulties. He received Lasix this shift, urine out put less than 500ml this shift. Frequent safety and comfort rounds continue. Orders and/or nursing care completed as indicated. Patient monitored for response to intervention and treatment(s). Education provided includes Heparin, ferrous sulfate and plan of care. Patient Verbalized understanding of plan of care and medications. Will continue to monitor.
[2021-09-30 22:47] LABS: Partial Thromboplastin Time 117.9 SECONDS (23.9-36.7)
[2021-10-01] VITALS (22 sets, daily range): BP systolic 101–139; BP diastolic 43–71; PULSE 66–81; RESP 6–29; TEMP 36.4–36.8; O2SAT 81–96
[2021-10-01] MEDS: ipratropium-albuterol 3 mL Neb INHALATION ×4 (02:10→20:15)
[2021-10-01 04:05] LABS: Eosinophils # 0.4 10^3/uL (0.0-0.8); Eosinophils % 6.5 %; Hematocrit 36.6 % (42.0-52.0); Hemoglobin 11.5 g/dL (11.7-16.6); Lymphocytes % 15.7 %; Mean Corpuscular HGB Conc 31.4 g/dL (30.0-36.0); Mean Corpuscular Hemoglobin 31.1 pg (28.0-34.0); Mean Corpuscular Volume 98.9 fl (80-94); Mean Platelet Volume 9.6 fL (7.4-10.4); Monocytes # 0.6 10^3/uL (0.2-0.9); Monocytes % 10.4 %; Neutrophils # 4.16 10^3/uL (1.8-7.7); Neutrophils % 67.2 %; Nucleated Red Blood Cells % 0 %; Platelet Count 133 10^3/cmm (130-400); White Blood Count 6.2 10^3/uL (4.0-10.0)
[2021-10-01 04:11] LABS: INR 1.03 (0.8-1.2)
[2021-10-01 04:21] LABS: Alanine Aminotransferase 13 U/L (0-41); Albumin Level 2.9 g/dL (3.5-5.2); Alkaline Phosphatase 94 IU/L (40-130); Anion Gap 10.6 (5-19); Aspartate Amino Transferase 9 U/L (0-40); Blood Urea Nitrogen 23 mg/dL (8-23); C Reactive Protein 48.1 mg/L (0.0-4.9); Calcium 8.9 mg/dL (8.5-10.5); Carbon Dioxide 28 mmol/L (22-29); Chloride 101 mmol/L (98-107); Globulin 2.8 g/dL (1.3-4.6); Glucose 123 mg/dL (65-115); Osmolality Calculated 287 mOsm/kg (285-295); Partial Thromboplastin Time 73.9 SECONDS (23.9-36.7); Potassium 3.6 mmol/L (3.5-5.1); Sodium 136 mmol/L (136-145); Total Bilirubin 0.5 mg/dL (0.15-1.2); Total Protein 5.7 g/dL (6.6-8.7)
[2021-10-01 04:40] LABS: ABG PCO2 43.2 mmHg (35-45); ABG PH Result 7.46 (7.35-7.45); Arterial Blood Gas Hematocrit 35.5 % (42-52); Blood Gas Allen Test Pos; Blood Gas Sample Site Radial, right; Blood Gas Sample Type Arterial; HCO3 ABG 30.6 mmol/L (22-26); Oxygen Device NC; PO2 ABG 64.2 mmHg (80.0-100.0)
[2021-10-01 05:19] LABS: NT Pro B Type Natriuretic Pept 221 pg/mL (0-450)
[2021-10-01] MEDS: lisinopril 10 mg Tablet PO (05:59)
[2021-10-01] MEDS: atorvastatin 40 mg Tablet 20 MG PO (05:59)
--- NOTE | 2021-10-01 06:45 | PC.NURSE ---
Report received from Shayne. Heparin gtt infusing at 23ml/hr.
[2021-10-01] MEDS: pantoprazole DR 40 mg Tablet PO (09:26)
[2021-10-01] MEDS: ferrous gluconate 324 mg Tablet PO ×2 (09:26→18:32)
[2021-10-01] MEDS: apixaban 5 mg Tablet 10 MG PO ×2 (09:27→20:22)
[2021-10-01] MEDS: NIFEdipine ER (24 hr) 30 mg Tablet 60 MG PO (09:27)
[2021-10-01] MEDS: metoprolol tartrate 25 mg Tablet PO ×2 (09:27→20:22)
--- NOTE | 2021-10-01 10:10 | PC.CHAP ---
Pastoral Care Encounter/Spiritual Assessment Type of Contact [] Declined engineering designer visit [] Patient/Family/Request visit [] Outpatient visit [] Follow-up visit [] Physician referral [] Code/Alert [x] Routine visit [] Staff referral [] Actively dying [] Patient sleeping [] Family support [] [] Out of room [] Palliative care [] [] Receiving care in room [] Pre-surgical visit [] Trauma [] Long length of stay [x] ICU visit [] Other: Relational/Emotional Strength [] Patient feels connected with others/family/visitors/staff [] Distress [] Loneliness/isolation [] Abandonment Spirituality of Patient [] Person of Gladys [] Attends Episcopalian of their Gladys [] Believes in Prayer [] Reads Bible or Voodoo materials [] There are Spiritual issues to be addressed Glass Blowing Instructor Interventions [x] Prayer [x] Active listening [x] Non-anxious presence [x] Spiritual/emotional support [] Crisis/trauma care [] Spiritual counseling [] Bereavement support [] Provided bereavement packet [] Provided Bible/devotional materials [] Provided toy/stuffed animal, coloring book to patient or family member [] Provided Communion [] Anointing/[place] [] Salvation [x] Completed spiritual assessment [] Other: Impact on Illness or Injury [] Angry [] Fearful [] Anxious [] Often cries [] Exhaustion [] Unable to work [] Unable to attend restoration [] Unable to walk/stand [] Unable to read [] Unable to drive [] Unable to eat/drink [] Unable to sleep [] Unable to be with family [] Patient intubated [] Other: Summary patient will be discharged tomorrow ... happy to get home.. Time spent with patient 10 min
[2021-10-01 10:33] LABS: Partial Thromboplastin Time 39.9 SECONDS (23.9-36.7)
--- NOTE | 2021-10-01 12:18 | PM.PN ---
Subjective Subjective: Patient was seen this morning, he tells me that he is feeling great, he is down to 10 L, no fevers overnight Vitals/I&O/Wt Last Vital Signs Temp 97.6 F 10/01/21 04:00 Pulse 72 10/01/21 08:18 Resp 16 10/01/21 08:16 BP 139/70 10/01/21 04:00 Pulse Ox 91 10/01/21 08:16 09/30/21 10/01/21 10/01/21 22:59 06:59 14:59 Intake Total 480.35 / 1291.883 381.833 / 1673.716 40.25 / 40.25 Output Total 175 / 425 400 / 825 Balance 305.35 / 866.883 -18.167 / 848.716 40.25 / 40.25 Weight last 48 hrs Weight 93.894 kg Weight 94.801 kg Physical Exam Const: COMMON NORMALS: no acute distress and patient oriented x3 Resp: COMMON NORMALS: normal respiratory effort, No retractions, No use of accessory muscles and clear to auscultation bilaterally AUSCULTATION: clear to auscultation bilaterally Cardio: COMMON NORMALS: regular rate, regular rhythm, S1 normal heart sound present and S2 normal heart sound present RATE: regular rate RHYTHM: regular rhythm HEART SOUNDS: S1 normal heart sound present and S2 normal heart sound present GI: COMMON NORMALS: Normal to inspection, nondistended, normoactive bowel sounds present, Soft to palpation, non-tender and No hepatosplenomegaly present PALPATION: Yes Soft to palpation and Yes No hepatosplenomegaly present Extremity: COMMON NORMALS: no pedal edema Neuro: COMMON NORMALS: patient oriented x3 Psych: COMMON NORMALS: mental status grossly normal Data : 10/01/21 03:47 10/01/21 03:47 A&P Assessment and plan (1) Pulmonary embolism: Acute B/L PE noted on CTA Currently on 10 L, will moved to general medical floors Transition off heparin drip, on Eliquis Pulmonary arteries: There are filling defects in pulmonary artery branches mainly on the right but also seen in some left side pulmonary branches consistent with acute pulmonary emboli new compared with 09/08/2021. s/p recent covid 19 admission and complicated hospital admission as above . Per path results from wedge resection no evidence of arteriovenous malformation.? Wedge resection mostly consists of post viral changes as well as diffuse alveolar damage. Evidence of right heart strain on CT - check echocardiogram Normal left ventricular size and systolic function, EF 71%.Grade ?I/IV diastolic dysfunction (abnormal relaxation filling ?pattern), normal to mildly elevated filling pressures. Mild left ?ventricular hypertrophy. No regional wall motion abnormalities. ?Thickened mitral valve. Mild mitral annular calcification. Mild ?mitral valve regurgitation. ?Mildly dilated aortic root, measuring 4.6 cm at the level of the ?sinuses and 3.8 cm the level of the isthumus. ?Thickened aortic valve. ?There is no pericardial effusion. ?There are no intracardiac masses. ?No previous study is available for comparison. elevated troponin at baseline 50, negative 2 hr delta, likely related to right heart strain Elevated BNP 500 PT OT on last admission may be additionally related to pulm HTN, right heart strain. titrate 02 to keep saturation >90%, currently on helated hi flow at 60% fi02 at 40lpm Daily dose Lasix Small left pneumothorax, likely related to recent surgery, repeat chest x-ray daily, avoid positive pressure ventilation Residual left loculated pleural effusion, continue to monitor Recent history of Covid infection, repeat testing so far negative PT OT Status: Acute (2) Acute respiratory failure with hypoxia: related to Acute PE currently on heated hi flow Status: Acute (3) Pneumothorax: Status: Acute (4) Pleural effusion: Status: Acute Attestations Medical Necessity Statement*: Patient requires hospitalization for acute respiratory failure secondary to pulmonary bullae Coding Level of Care Code Acute Fireproof Door Maker for [facility] Diagnoses Pulmonary embolism I26.99 Acute respiratory failure with hypoxia J96.01 Pneumothorax J93.9 Pleural effusion J90
--- NOTE | 2021-10-01 13:02 | PC.SOCIAL ---
IMM Update IMM updated with patient. Verbalized an understanding. Copy Pg 2 provided. Initialled, dated, timed, and placed in chart.
--- NOTE | 2021-10-01 14:32 | PC.NURSE ---
Report faxed to CSU. Report given to CSU nurse Jessica via telephone
--- NOTE | 2021-10-01 15:10 | PC.NURSE ---
Pt transferred to room 108. All belongings with pt. Further update given to Jessica.
--- NOTE | 2021-10-01 16:35 | PC.NURSE ---
Patient report received from Daniella Razo RN ICU. Patient is alert and oriented. Patient received shower upon arrival to floor. VS are stable. Patient is resting in bed with even, unlabored breathing. He has been oriented to room and use of call phan. Nurse will continue to monitor patient.
--- NOTE | 2021-10-01 18:42 | PC.NURSE ---
Shift Note Patient arrived to CSU from ICU this afternoon. Patient received shower and has been resting in bed sense then. Patient has had no pain and has stated how happy he was to receive a shower and that it had almost been a month sense his last shower, so this was very therapeutic for him psychosocially. Patient has no complaints at this time. Frequent safety and comfort rounds continue. Orders and/or nursing care completed as indicated. Will continue to monitor.
[2021-10-01] MEDS: ALPRAZolam 0.5 mg Tablet PO (20:22)
[2021-10-02] VITALS (25 sets, daily range): BP systolic 94–142; BP diastolic 48–72; PULSE 18–105; RESP 16–85; TEMP 36.2–36.7; O2SAT 89–97
[2021-10-02] MEDS: ipratropium-albuterol 3 mL Neb INHALATION ×4 (03:10→21:10)
[2021-10-02 03:51] LABS: Basophils % 0.3 %; Eosinophils # 0.4 10^3/uL (0.0-0.8); Eosinophils % 6.7 %; Hematocrit 36.5 % (42.0-52.0); Hemoglobin 11.3 g/dL (11.7-16.6); Lymphocytes % 16.7 %; Mean Corpuscular Hemoglobin 30.8 pg (28.0-34.0); Mean Corpuscular Volume 99.5 fl (80-94); Mean Platelet Volume 10.3 fL (7.4-10.4); Monocytes # 0.6 10^3/uL (0.2-0.9); Monocytes % 9.2 %; Neutrophils # 4.08 10^3/uL (1.8-7.7); Neutrophils % 66.8 %; Nucleated Red Blood Cells % 0 %; Platelet Count 146 10^3/cmm (130-400); Red Blood Count 3.67 10^6/uL (4.1-5.3); Red Cell Distribution Width 13.9 % (12.1-15.1); White Blood Count 6.1 10^3/uL (4.0-10.0)
[2021-10-02 04:07] LABS: INR 1.44 (0.8-1.2)
[2021-10-02 04:30] LABS: Alanine Aminotransferase 12 U/L (0-41); Albumin Level 2.9 g/dL (3.5-5.2); Alkaline Phosphatase 100 IU/L (40-130); Anion Gap 13.9 (5-19); Aspartate Amino Transferase 12 U/L (0-40); Blood Urea Nitrogen 21 mg/dL (8-23); C Reactive Protein 35.6 mg/L (0.0-4.9); Carbon Dioxide 27 mmol/L (22-29); Chloride 102 mmol/L (98-107); Globulin 2.6 g/dL (1.3-4.6); Glucose 118 mg/dL (65-115); Magnesium 2.1 mg/dL (1.7-2.3); NT Pro B Type Natriuretic Pept 205 pg/mL (0-450); Osmolality Calculated 292 mOsm/kg (285-295); Phosphorus 3.2 mg/dL (2.5-4.5); Potassium 3.9 mmol/L (3.5-5.1); Sodium 139 mmol/L (136-145); Total Bilirubin 0.5 mg/dL (0.15-1.2); Total Protein 5.5 g/dL (6.6-8.7)
[2021-10-02 05:32] LABS: ABG PCO2 45.1 mmHg (35-45); ABG PH Result 7.43 (7.35-7.45); Arterial Blood Gas Hematocrit 36.5 % (42-52); Base Excess ABG 5.2 mmol/L (-2.0-2.0); Blood Gas Allen Test Pos; Blood Gas Sample Site Radial, right; Blood Gas Sample Type Arterial; HCO3 ABG 30.2 mmol/L (22-26); Oxygen Device CAG; PO2 ABG 57.6 mmHg (80.0-100.0)
[2021-10-02] MEDS: atorvastatin 40 mg Tablet 20 MG PO (06:10)
[2021-10-02] MEDS: lisinopril 10 mg Tablet PO (06:11)
[2021-10-02] MEDS: ferrous gluconate 324 mg Tablet PO ×2 (08:34→17:30)
[2021-10-02] MEDS: pantoprazole DR 40 mg Tablet PO (08:34)
[2021-10-02] MEDS: apixaban 5 mg Tablet 10 MG PO ×2 (08:34→20:28)
--- NOTE | 2021-10-02 09:23 | PC.NURSE ---
spoke with Dr. Quinonez with concerns of giving scheduled procardia and metoprolol this am with a map of 68 instructions to hold this am does of metoprolol and procardia at this time
[2021-10-02] MEDS: FUROsemide 10 mg/mL SDV 4mL 40 MG IVP (09:55)
--- NOTE | 2021-10-02 10:09 | PC.NURSE ---
Physician Orders Initiate bowel regimen. Colace 100mg BID and Miralax daily 75mg.
--- NOTE | 2021-10-02 16:11 | P.PN_ITS ---
Subjective Subjective: Patient was seen this morning, I also spoke to patient's son over the phone in the presence of patient, he has had a good night, currently on 7 L, a bit hesitant about going home, some shortness of breath with exertion, no fevers, chills, no nausea, no vomiting, no chest pain Vitals/I&O/Wt Last Vital Signs Temp 97.2 F L 10/02/21 00:00 Pulse 77 10/02/21 14:21 Resp 16 10/02/21 14:21 BP 122/65 10/02/21 14:19 Pulse Ox 94 10/02/21 14:21 10/02/21 10/02/21 10/02/21 06:59 14:59 22:59 Intake Total 472 / 472 Output Total 0 / 250 475 / 475 Balance 0 / 626.25 -3 / -3 Weight last 48 hrs Weight 98.43 kg Weight 93.894 kg Physical Exam Const: COMMON NORMALS: no acute distress and patient oriented x3 Resp: COMMON NORMALS: normal respiratory effort, No retractions, No use of accessory muscles and clear to auscultation bilaterally AUSCULTATION: clear to auscultation bilaterally Cardio: COMMON NORMALS: regular rate, regular rhythm, S1 normal heart sound present and S2 normal heart sound present RATE: regular rate RHYTHM: regular rhythm HEART SOUNDS: S1 normal heart sound present and S2 normal heart sound present GI: COMMON NORMALS: Normal to inspection, nondistended, normoactive bowel sounds present, Soft to palpation, non-tender and No hepatosplenomegaly present PALPATION: Yes Soft to palpation and Yes No hepatosplenomegaly present Extremity: COMMON NORMALS: no pedal edema Neuro: COMMON NORMALS: patient oriented x3 Psych: COMMON NORMALS: mental status grossly normal Data : 10/02/21 02:35 10/02/21 02:35 A&P Assessment and plan (1) Pulmonary embolism: Acute B/L PE noted on CTA Currently on 7 L, currently on cardiac stepdown unit will likely discharge the next 24 hours On Eliquis Pulmonary arteries: There are filling defects in pulmonary artery branches mainly on the right but also seen in some left side pulmonary branches consistent with acute pulmonary emboli new compared with 09/08/2021. s/p recent covid 19 admission and complicated hospital admission as above . Per path results from wedge resection no evidence of arteriovenous malformation.? Wedge resection mostly consists of post viral changes as well as diffuse alveolar damage. Evidence of right heart strain on CT - check echocardiogram Normal left ventricular size and systolic function, EF 71%.Grade ?I/IV diastolic dysfunction (abnormal relaxation filling ?pattern), normal to mildly elevated filling pressures. Mild left ?ventricular hypertrophy. No regional wall motion abnormalities. ?Thickened mitral valve. Mild mitral annular calcification. Mild ?mitral valve regurgitation. ?Mildly dilated aortic root, measuring 4.6 cm at the level of the ?sinuses and 3.8 cm the level of the isthumus. ?Thickened aortic valve. ?There is no pericardial effusion. ?There are no intracardiac masses. ?No previous study is available for comparison. elevated troponin at baseline 50, negative 2 hr delta, likely related to right heart strain Elevated BNP 500 PT OT on last admission may be additionally related to pulm HTN, right heart strain. titrate 02 to keep saturation >90%, currently on helated hi flow at 60% fi02 at 40lpm Daily dose Lasix Small left pneumothorax, likely related to recent surgery, repeat chest x-ray daily, avoid positive pressure ventilation Residual left loculated pleural effusion, continue to monitor Recent history of Covid infection, repeat testing so far negative PT OT Status: Acute (2) Acute respiratory failure with hypoxia: related to Acute PE currently on heated hi flow Status: Acute (3) Pneumothorax: Status: Acute (4) Pleural effusion: Status: Acute Attestations Medical Necessity Statement*: Patient requires hospitalization for acute respiratory failure Coding Level of Care Code Acute Green Energy Marketing Analyst for [facility] Diagnoses Pulmonary embolism I26.99 Acute respiratory failure with hypoxia J96.01 Pneumothorax J93.9 Pleural effusion J90
[2021-10-02] MEDS: docusate sodium 100 mg Capsule PO (17:30)
--- NOTE | 2021-10-02 19:12 | PC.NURSE ---
This Rn agrees with all charting and medications administrations preformed by dean of student services Jessica Mcbride
[2021-10-02] MEDS: metoprolol tartrate 25 mg Tablet PO (20:28)
[2021-10-02] MEDS: ALPRAZolam 0.5 mg Tablet PO (20:29)
[2021-10-03] VITALS (9 sets, daily range): BP systolic 118–128; BP diastolic 65–67; PULSE 72–93; RESP 16–20; TEMP 36.8; O2SAT 87–97; BMI 29.4
[2021-10-03] MEDS: ipratropium-albuterol 3 mL Neb INHALATION ×2 (02:56→08:35)
[2021-10-03] MEDS: lisinopril 10 mg Tablet PO (05:21)
[2021-10-03] MEDS: atorvastatin 40 mg Tablet 20 MG PO (05:21)
[2021-10-03 05:56] LABS: Basophils % 0.5 %; Eosinophils # 0.4 10^3/uL (0.0-0.8); Eosinophils % 7.3 %; Hematocrit 36.8 % (42.0-52.0); Hemoglobin 11.5 g/dL (11.7-16.6); Lymphocytes # 0.8 10^3/uL (0.8-4.8); Lymphocytes % 12.9 %; Mean Corpuscular HGB Conc 31.3 g/dL (30.0-36.0); Mean Corpuscular Hemoglobin 31.3 pg (28.0-34.0); Mean Corpuscular Volume 100.3 fl (80-94); Mean Platelet Volume 9.6 fL (7.4-10.4); Monocytes # 0.6 10^3/uL (0.2-0.9); Monocytes % 9.5 %; Neutrophils # 4.19 10^3/uL (1.8-7.7); Neutrophils % 69.5 %; Nucleated Red Blood Cells % 0 %; Platelet Count 165 10^3/cmm (130-400); Red Blood Count 3.67 10^6/uL (4.1-5.3); Red Cell Distribution Width 13.9 % (12.1-15.1)
[2021-10-03 06:33] LABS: Alanine Aminotransferase 11 U/L (0-41); Alkaline Phosphatase 101 IU/L (40-130); Anion Gap 15.6 (5-19); Aspartate Amino Transferase 14 U/L (0-40); Blood Urea Nitrogen 21 mg/dL (8-23); Calcium 9.1 mg/dL (8.5-10.5); Carbon Dioxide 25 mmol/L (22-29); Chloride 101 mmol/L (98-107); Globulin 2.6 g/dL (1.3-4.6); Glucose 132 mg/dL (65-115); Magnesium 2.1 mg/dL (1.7-2.3); Osmolality Calculated 291 mOsm/kg (285-295); Phosphorus 3.6 mg/dL (2.5-4.5); Potassium 3.6 mmol/L (3.5-5.1); Sodium 138 mmol/L (136-145); Total Bilirubin 0.5 mg/dL (0.15-1.2); Total Protein 5.6 g/dL (6.6-8.7)
[2021-10-03] MEDS: NIFEdipine ER (24 hr) 30 mg Tablet 60 MG PO (08:31)
[2021-10-03] MEDS: docusate sodium 100 mg Capsule PO (08:31)
[2021-10-03] MEDS: ferrous gluconate 324 mg Tablet PO (08:31)
[2021-10-03] MEDS: metoprolol tartrate 25 mg Tablet PO (08:31)
[2021-10-03] MEDS: pantoprazole DR 40 mg Tablet PO (08:31)
[2021-10-03] MEDS: apixaban 5 mg Tablet 10 MG PO (08:31)
[2021-10-03] MEDS: polyethylene glycol 3350 Pkt 17 gm PO (08:31)
--- NOTE | 2021-10-03 08:41 | PC.SOCIAL ---
IMM Update pg 2 of IMM updated and reviewed w/patient. Copy provided and copy in chart updated.
--- NOTE | 2021-10-03 09:48 | PM.DCS ---
Discharge Providers Date of Admission: 09/28/21 21:48 Date of Discharge: October 03, 2021 Attending Provider at Admission: Evangelina Cortes MD Attending Provider at Discharge: Janak Quinonez MD Primary Care Provider: Jud Victor MD Diagnoses at Discharge Discharge Diagnosis (1) Pulmonary embolism: Status: Acute (2) Acute respiratory failure with hypoxia: Status: Acute (3) Pneumothorax: Status: Acute (4) Pleural effusion: Status: Acute Reason for Visit Reason for Visit: SOB Hospital Course Hospital Course Harrison Garcia Case is a 85 year old male with a past medical history of hypertension, hyperlipidemia, recently for COVID 19 pneumonia, treated with remdesivir, Decadron and inhalation treatment, hospital course was complicated by left lung collapse for which??CT surgery was consulted.? 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 for acute bilateral pulmonary emboli, requiring heated high flow, managed with anticoagulant therapy, CT evidence of right heart strain, echocardiogram EF of 71%, grade 1 out of 4 diastolic dysfunction, mild LVH, had elevated troponins, chest x-ray also showed small left pneumothorax. Patient clinically improved, weaned down to 6 L, ambulate without symptomatology. Discharged on 6 L, Eliquis, with close follow-up with pulmonary and primary care as outpatient Physical Exam Const: COMMON NORMALS: no acute distress and patient oriented x3 Resp: COMMON NORMALS: normal respiratory effort, No retractions, No use of accessory muscles and clear to auscultation bilaterally AUSCULTATION: clear to auscultation bilaterally Cardio: COMMON NORMALS: regular rate, regular rhythm, S1 normal heart sound present and S2 normal heart sound present RATE: regular rate RHYTHM: regular rhythm HEART SOUNDS: S1 normal heart sound present and S2 normal heart sound present GI: COMMON NORMALS: Normal to inspection, nondistended, normoactive bowel sounds present, Soft to palpation, non-tender and No hepatosplenomegaly present PALPATION: Yes Soft to palpation and Yes No hepatosplenomegaly present Extremity: COMMON NORMALS: no pedal edema Neuro: COMMON NORMALS: patient oriented x3 Psych: COMMON NORMALS: mental status grossly normal Discharge Data Studies Completed and Pending Completed Studies During Hospitalization Category Date Time Status CTA chest [CT angio chest PE protcl [id number]] Urgent Cat Scan 09/28/21 15:31 Completed XR chest 1V portable [id number] Routine Exams 09/30/21 07:00 Completed XR chest 1V portable [id number] Stat Exams 09/28/21 14:45 [place] [id number] Routine Ultrasound 09/29/21 Completed CV. echo complete* [id number] Routine Ultrasound 09/28/21 Completed Pending at discharge Category Date Time Status Complete Blood Count w/Auto AM LABS Lab 10/04/21 04:00 Ordered Complete Blood Count w/Auto AM LABS Lab 10/05/21 04:00 Ordered Comprehensive Metabolic Panel AM LABS Lab 10/04/21 04:00 Ordered Comprehensive Metabolic Panel AM LABS Lab 10/05/21 04:00 Ordered Magnesium AM LABS Lab 10/04/21 04:00 Ordered Magnesium AM LABS Lab 10/05/21 04:00 Ordered Phosphorus AM LABS Lab 10/04/21 04:00 Ordered Phosphorus AM LABS Lab 10/05/21 04:00 Ordered Radiology Impressions Chest CTA 09/28/21 15:31 IMPRESSION: 1. Acute pulmonary embolism. 2. Findings suggesting right heart strain. 3. Postsurgical changes in the left lower lobe. 4. Small left pneumothorax likely related to recent surgery. 5. Residual mostly loculated pleural effusion. 6. Left pleural effusion much improved compared with 09/08/2021. COMMENTS: THIS REPORT CONTAINS FINDINGS THAT MAY BE CRITICAL TO PATIENT CARE. The findings were verbally communicated via telephone conference with Severiano Linda at 7:07 PM MANUAL QA TESTER on 09/28/2021. The findings were acknowledged and understood. Chest X-Ray 09/30/21 07:00 IMPRESSION: 1. Small loculated pleural effusion in the LEFT thorax similar to recent chest CT. 2. No pneumonia. 3. No residual pneumothorax seen radiographically. Laboratory Results WBC 6.0 10^3/uL (4.0-10.0) 10/03/21 04:45 RBC 3.67 10^6/uL (4.1-5.3) L 10/03/21 04:45 Hgb 11.5 g/dL (11.7-16.6) L 10/03/21 04:45 Hct 36.8 % (42.0-52.0) L 10/03/21 04:45 MCV 100.3 fl (80-94) H 10/03/21 04:45 MCH 31.3 pg (28.0-34.0) 10/03/21 04:45 MCHC 31.3 g/dL (30.0-36.0) 10/03/21 04:45 RDW 13.9 % (12.1-15.1) 10/03/21 04:45 Plt Count 165 10^3/cmm (130-400) 10/03/21 04:45 MPV 9.6 fL (7.4-10.4) 10/03/21 04:45 Neut % (Auto) 69.5 % 10/03/21 04:45 Lymph % (Auto) 12.9 % 10/03/21 04:45 [place] % (Auto) 9.5 % 10/03/21 04:45 Eos % (Auto) 7.3 % 10/03/21 04:45 Baso % (Auto) 0.5 % 10/03/21 04:45 Neut # (Auto) 4.19 10^3/uL (1.8-7.7) 10/03/21 04:45 Lymph # (Auto) 0.8 10^3/uL (0.8-4.8) 10/03/21 04:45 [place] # (Auto) 0.6 10^3/uL (0.2-0.9) 10/03/21 04:45 Eos # (Auto) 0.4 10^3/uL (0.0-0.8) 10/03/21 04:45 Baso # (Auto) 0.0 10^3/uL (0.0-0.1) 10/03/21 04:45 Nucleated RBC % (auto) 0 % 10/03/21 04:45 Nucleated RBCs # 0.0 /100WBC 10/03/21 04:45 PT 17.90 SECONDS (12.1-14.9) H 10/02/21 02:35 INR 1.44 (0.8-1.2) H 10/02/21 02:35 APTT 39.9 SECONDS (23.9-36.7) H 10/01/21 09:50 Specimen Type Arterial 10/02/21 05:20 Sample Site Radial, right 10/02/21 05:20 ABG pH 7.43 (7.35-7.45) 10/02/21 05:20 ABG pCO2 45.1 mmHg (35-45) H 10/02/21 05:20 ABG pO2 57.6 mmHg (80.0-100.0) L 10/02/21 05:20 ABG HCO3 30.2 mmol/L (22-26) H 10/02/21 05:20 ABG Base Excess 5.2 mmol/L (-2.0-2.0) H 10/02/21 05:20 Yaya Test Pos 10/02/21 05:20 Hematocrit 36.5 % (42-52) L 10/02/21 05:20 O2 Delivery Device Cag 10/02/21 05:20 O2 Liters/Min 8.0 % 10/02/21 05:20 FiO2 70.0 % 09/30/21 04:55 Technical Advisor ID Rieri 10/02/21 05:20 Sodium 138 mmol/L (136-145) 10/03/21 04:45 Potassium 3.6 mmol/L (3.5-5.1) 10/03/21 04:45 Chloride 101 mmol/L (98-107) 10/03/21 04:45 Carbon Dioxide 25 mmol/L (22-29) 10/03/21 04:45 Anion Gap 15.6 (5-19) 10/03/21 04:45 BUN 21 mg/dL (8-23) 10/03/21 04:45 Creatinine 1.0 mg/dL (0.7-1.2) 10/03/21 04:45 GFR Calculation Not Reportable 10/03/21 04:45 Glucose 132 mg/dL (65-115) H 10/03/21 04:45 Calculated Osmolality 291 mOsm/kg (285-295) 10/03/21 04:45 Calcium 9.1 mg/dL (8.5-10.5) 10/03/21 04:45 Phosphorus 3.6 mg/dL (2.5-4.5) 10/03/21 04:45 Magnesium 2.1 mg/dL (1.7-2.3) 10/03/21 04:45 Total Bilirubin 0.5 mg/dL (0.15-1.2) 10/03/21 04:45 AST 14 U/L (0-40) 10/03/21 04:45 ALT 11 U/L (0-41) 10/03/21 04:45 Alkaline Phosphatase 101 IU/L (40-130) 10/03/21 04:45 Troponin T Baseline 51 ng/L (0-15) H 09/28/21 15:08 Troponin T 120 Minute 47.36 ng/L (0-15) H 09/28/21 17:18 Delta Troponin T -3.64 ABS# (0-10) L 09/28/21 17:18 Troponin T Hi Sens 6Hr 42.87 ng/L (0-15) H 09/28/21 21:23 Troponin T Hi Sens 6Hr Delta -8.13 ng/L (0-12) L 09/28/21 21:23 C-Reactive Protein 35.6 mg/L (0.0-4.9) H 10/02/21 02:35 NT-Pro-B Natriuret Pep 205 pg/mL (0-450) 10/02/21 02:35 Total Protein 5.6 g/dL (6.6-8.7) L 10/03/21 04:45 Albumin 3.0 g/dL (3.5-5.2) L 10/03/21 04:45 Globulin 2.6 g/dL (1.3-4.6) 10/03/21 04:45 Procalcitonin 0.12 ng/mL (0-0.5) 09/28/21 15:08 Coronavirus 229E (PCR) Not detected (NOT DETECT) 09/28/21 15:48 SARS-CoV-2 (PCR) Not detected (NOT DETECT) 09/28/21 15:48 Vitals Last Vital Signs Temp 98.2 F 10/03/21 03:21 Pulse 77 10/03/21 09:12 Resp 20 H 10/03/21 09:12 BP 124/65 10/03/21 09:12 Pulse Ox 97 10/03/21 09:12 Discharge Plan Discharge Patient Disposition: Home Condition: Stable Prescriptions: New [place] DVT-PE Treat 30D Start 5 mg (74 tabs) tablets,dose pack See Rx Instructions .ROUTE .COMPLEX Qty: 74 0RF Rx Instructions: orally per package directions Continued pravastatin 40 mg Tablet 40 mg PO QAM 0RF lisinopril 20 mg Tablet 10 mg PO QAM 0RF nifedipine 60 mg Tablet Extended Release 24hr 60 mg PO DAILY 0RF cholecalciferol (vitamin D3) [Vitamin D3] 50 mcg (2,000 unit) Capsule 50 mcg PO QPM 0RF ascorbic acid (vitamin C) [Vitamin C] 500 mg Tablet 500 mg PO BID 14 Days Qty: 28 0RF benzonatate 100 mg Capsule 200 mg PO TID PRN (Reason: cough) Qty: 10 0RF metoprolol tartrate 25 mg Tablet 25 mg PO BID@0900,2100 30 Days Qty: 60 0RF ferrous gluconate 324 mg (37.5 mg iron) Tablet 324 mg PO BIDWM Qty: 60 0RF Spiriva with HandiHaler 18 mcg capsule, w/inhalation device 1 cap inhalation DAILY Qty: 14 0RF Rx Instructions: puncture 1 cap using device; one dose = 2 inhalations tramadol 50 mg tablet 50 mg PO Q12H PRN (Reason: pain) Qty: 10 0RF Tylenol PM Extra Strength 25-500 mg Tablet 2 tab PO QPM 0RF Advair Diskus 250-50 mcg/dose blister with device 1 puff inhalation BID 0RF pantoprazole 40 mg tablet,delayed release (DR/EC) 40 mg PO QAM 0RF zinc gluconate 50 mg tablet 50 mg PO DAILY 0RF Discontinued dexamethasone 6 mg tablet 6 mg PO Q24H Qty: 5 0RF Rx Instructions: for up to 10 days Discharge Orders: Discharge Order (Routine); Ordered 10/03/21 Ordered By: Janak Quinonez Referrals: RachelrDavid MD [Physician] - 2 weeks Jud Victor MD [Primary Care Provider] - 1-3 days ([facility] will be contacting you to schedule a hospital followup to be seen in 1 to 3 days. If you don't hear from them by Monday afternoon, please give them a call. Thank you) Discharge Diet: Cardiac Discharge Activity: Resume usual activity Patient Instructions: Apixaban (By mouth) (Eliquis), Opioid Safety Activity Restrictions/Additional Instructions: -Take Eliquis as prescribed -Monitor for bloody or black stools or lightheadedness or dizziness -If so go to the emergency room -Follow-up with primary care provider in 1 week for recheck hemoglobin -Follow-up with pulmonary Discharge Attestations Time Spent in Discharge Care*: less than 30 min Status at Discharge: Cognitive status at discharge: cognitively intact, Behavioral status at discharge: cooperative, Quality Metrics Clinical Quality Measures [ Venous Thromboembolism { Contraindication to Overlap Therapy: Overlap treatment not indicated; VTE Discharge Education: Education about anticoagulant therapy/Care Notes given;}] Coding Level of Care Code Acute g DC note Diagnoses Pulmonary embolism I26.99 Acute respiratory failure with hypoxia J96.01 Pneumothorax J93.9 Pleural effusion J90
--- NOTE | 2021-10-03 13:12 | PC.NURSE ---
Eliquis prescription called it to [facility]
--- NOTE | 2021-10-03 15:06 | PC.NURSE ---
Patient education provided thoroughly to son and patient regarding discharge follow up, new medication, stopped medication, and oxygen use. All questions were answered that son and patient had. Patient VS stable upon departure and was escorted out by nurse. Medication sent to [place] pharmacy and called in to [facility] in [facility]. Patient sent home with Saroj wen.
== END 2021-10-03 14:45 | disposition home health service (06) | DRG 175 ==
LOC: ER 19:29 → ICU 20:25 → CSU 10-01 14:54
PROVIDERS: Hospitalist; Admitting Provider Student in an Organized Health Care Education/Training Program; Emergency Provider Emergency Medicine; PCP Family Medicine; Visit Provider Family Medicine
DX: I26.99 Other pulmonary embolism without acute cor pulmonale (principal); J96.01 Acute respiratory failure with hypoxia; J93.9 Pneumothorax, unspecified; J90 Pleural effusion, not elsewhere classified; I51.89 Other ill-defined heart diseases; I10 Essential (primary) hypertension; E78.5 Hyperlipidemia, unspecified; Z86.16 Personal history of COVID-19; Z98.890 Other specified postprocedural states; Z90.2 Acquired absence of lung [part of]
CPT/HCPCS: 36415; 36600; 71045; 71275; 80053; 82803; 83735; 83880; 84100; 84145; 84484; 85014; 85018; 85025; 85610; 85730; 86140; 87635; 93005; 93306; 93970; 94640; 99285; J1644; J1940; Q9967

== ENCOUNTER → 2021-10-25 08:52 | Outpatient (BNVA) | payer MEDICARE, SELFPAY | PROVIDERS: PCP Family Medicine; Visit Provider Internal Medicine Pulmonary Disease | DX: Z09 Encounter for follow-up examination after completed treatment for conditions other than malignant neoplasm (principal); Z86.16 Personal history of COVID-19; J12.82 Pneumonia due to coronavirus disease 2019; J98.11 Atelectasis; J94.2 Hemothorax; Z98.890 Other specified postprocedural states; I26.99 Other pulmonary embolism without acute cor pulmonale | CPT/HCPCS: 99204 ==

== ENCOUNTER → 2021-10-28 14:53 | Outpatient (BNVA) | payer MEDICARE, SELFPAY | PROVIDERS: PCP Family Medicine; Visit Provider Thoracic Surgery (Cardiothoracic Vascular Surgery) | DX: Z48.812 Encounter for surgical aftercare following surgery on the circulatory system (principal) ==

== ENCOUNTER → 2021-12-29 09:12 | Outpatient (BNVA) | payer MEDICARE, SELFPAY | PROVIDERS: PCP Family Medicine; Visit Provider Internal Medicine Pulmonary Disease | DX: I26.99 Other pulmonary embolism without acute cor pulmonale (principal); U07.1 COVID-19; J12.82 Pneumonia due to coronavirus disease 2019; J98.11 Atelectasis; J94.2 Hemothorax; Z98.890 Other specified postprocedural states; I10 Essential (primary) hypertension; E78.5 Hyperlipidemia, unspecified | CPT/HCPCS: 99214 ==